=== PATIENT | male | born 1970 | race Caucasian/White ===

== ENCOUNTER 2017-11-13 12:57 | Inpatient (IN) | payer OTHER ==
[2017-11-13] MEDS ORDERED: MEPERIDINE 25 MG/ML SYR IVP PRN (13:15)
[2017-11-13] MEDS ORDERED: HEPARIN 10,000 UNIT/10 ML MDV (1,000 UNIT/ML) IVP PRN (13:15)
[2017-11-13] MEDS ORDERED: ALTEPLASE 2 MG VIAL IVP PRN (13:15)
[2017-11-13] MEDS ORDERED: FLUMAZENIL 0.5 MG/5 ML MDV IVP PRN (13:15)
[2017-11-13] MEDS ORDERED: GLUCAGON HCL 1 MG VIAL IVP PRN (13:15)
[2017-11-13] MEDS ORDERED: PROTAMINE SULFATE 50 MG/5 ML VIAL IVP PRN (13:15)
[2017-11-13] MEDS ORDERED: fentaNYL 100 MCG/2 ML INJ IVP PRN (13:15)
[2017-11-13] MEDS ORDERED: NALOXONE HCL 0.4 MG/ML INJ IVP PRN ×2 (13:15→18:49)
[2017-11-13] MEDS ORDERED: MIDAZOLAM 2 MG/2 ML VIAL IVP PRN (13:15)
[2017-11-13 13:36] LABS: PLATELET COUNT 300 10^3/uL (150-400)
[2017-11-13 13:44] LABS: PROTIME(PATIENT) 13.4 SEC (12.0-15.0)
[2017-11-13] MEDS ORDERED: HEPARIN/DEXTROSE 25,000 UNIT/500 ML BAG ONE (13:48)
--- NOTE | 2017-11-13 13:51 | PDGENHP ---
History & Physical Chief Complaint: RLE CLAUDICATION History of Present Illness: SYMPTOMS STARTED IN MAY; US ARTERIAL DONE 2017 REPOREDLY NEGATIVE. SYMPTOMS HAVE GOTTEN MUCH WORSE SINCE AUGUST Pertinent Past, Social, Family History: FORMER SMOKER. S/P AICD PLACEMENT FOR AFIB. BACK SURGERIES, NM STENT X 1 IN 2009. 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 DOPLERABLE RT POP < LT POP. DOPPLERABLE LT POP IS STRONGER THAN RT. Cardiorespiratory Assessment: RRR, CTA
--- NOTE | 2017-11-13 13:59 | PDPROPOC ---
Sedation Plan of Care Sedation Plan of Care: vital signs stable, mental status noted, patient educated of risks, benefits, alternatives, patient can tolerate sedation ASA Classification: ASA 2 Planned drugs: fentanyl, midazolam Mallampati Score: Class 1 Mallampati Reference Image: Patient passed 3-3-2 rule?: Yes
[2017-11-13] MEDS: NS 1,000 ML IV SCH ×2 (14:28→19:18)
[2017-11-13] MEDS ORDERED: IOPAMIDOL (ISOVUE-300) 100 ML BTL ONE (16:54)
[2017-11-13] MEDS ORDERED: MIDAZOLAM 2 MG/2 ML VIAL ONE (17:25)
[2017-11-13] MEDS ORDERED: fentaNYL 100 MCG/2 ML INJ ONE (17:25)
[2017-11-13] MEDS ORDERED: HYDROmorphONE/DILAUDID 2 MG/ML INJ ONE (17:56)
[2017-11-13] MEDS ORDERED: ALTEPLASE 5 MG in NS 100 ML IV ONE (18:00)
--- NOTE | 2017-11-13 18:45 | PDRADPN ---
Radiology Procedure Note Date of Procedure: 11/13/17 Radiologist: Bianka Byrd Anesthesia: IV Sedation Pre-op Diagnosis: RT CLAUDICATION Post-op Diagnosis: SAME Indication: WORSENING SYMPTOMS Procedure: BILATERAL RUNOFF, TPA LYSIS RT Finding(s): COMPLETE OCCLUSION OF DISTAL SFA THROUGH POP AND TP TRUNK. PARTIAL RUNOFF TO FOOT VIA PT. Inf/Abcess present in the surg proc area at time of surgery?: No Complications: NONE
[2017-11-13] MEDS ORDERED: PROMETHAZINE HCL 25 MG/ML INJ IVP PRN (18:46)
[2017-11-13] MEDS ORDERED: ONDANSETRON 4 MG/2 ML VIAL IVP PRN (18:46)
[2017-11-13] MEDS ORDERED: HEPARIN/DEXTROSE 500 ML IV SCH (19:00)
--- NOTE | 2017-11-13 19:48 | PDMN ---
Medical Necessity Medical necessity: C/M review: patient meets INPT criteria under [facility] S-1310 Percutaneous revascularization, lower extremity, Inpatient: Emergent or Urgent procedures for patients with comorbidities, have need for post thrombolysis monitoring or whose presenting clinical situation requires extended monitoring or treatment: Right lower extremity claudication with acutely worsening symptoms - symptoms much worse than August 2017, pre-procedure palpable and symmetric CF and FIRE LOOKOUT pulses, dopplerable right popliteal < left popliteal, dopplerable left popliteal is stronger than right requiring 11/13/2017 bilateral runoff, tPA lysis of right lower extremity, findings: complete occlusion of distal superficial femoral artery through popliteal and tibioperoneal trunk, partial runoff to foot via PT requiring ongoing IV tPA infusion and IV Heparin infusion, close monitoring , cardiac monitoring, pulse oximetry in ICU, comorbid history symptoms started 05/2017, US arterial done 08/2017 - reportedly negative, patient is former smoker, S/P AICD placement for atrial fibrillation, back surgeries, AR stent x 1 in 201. MD anticipates > 2 MN LOS for ongoing med nec for eval and TX of above.
[2017-11-13] MEDS: HYDROmorphONE/DILAUDID 6 MG/30 ML PCA IV PRN (19:49)
[2017-11-13] MEDS: LORazepam 1 MG TAB PO PRN (19:49)
[2017-11-13] MEDS: DEXMEDETOMIDINE HCL 400 MCG in NS 100 ML IV SCH (20:46)
[2017-11-13 21:08] LABS: PROTIME(PATIENT) 14.3 SEC (12.0-15.0)
[2017-11-13 21:09] LABS: INR 1.09 (0.83-1.16)
--- NOTE | 2017-11-13 21:25 | GHP ---
[f rep st] PREOP HISTORY AND PHYSICAL DATE OF ADMISSION: 11/13/2017 REASON FOR ADMISSION: Right femoral artery occlusion. HISTORY OF PRESENT ILLNESS: 47-year-old male with a 5-month history of progressive right leg pain. Patient has been running approximately 2 miles without difficulty before symptoms started. Patient does have a significant history for a ventricular arrhythmia; coronary artery disease, status post PTCA in 2009, and AICD placement in 2010. He had previously been maintained on Coumadin and switched to Xarelto recently. His right leg pain has progressed to the point of rest pain symptoms requiring him to dangle his leg over the bed at nighttime. He denies left leg symptoms. He does report occasional right- sided arm weakness, numbness, tingling, with occasional decreased chili maker strength. He describes his last echocardiogram being in July of 2017. He thinks that his ejection fraction was approximately 26%. The patient is currently only able to walk approximately 5 minutes before stopping. The patient is a former smoker, quit 2 months ago. 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 He currently denies chest pains, or shortness of breath, or abdominal complaints. Imaging studies disclose a distal SFA occlusion with minimal runoff. He is admitted at this time for catheter-directed thrombolytic therapy. PAST MEDICAL HISTORY: 1. Coronary artery disease. 2. Ventricular arrhythmia and possible left ventricular thrombus. PAST SURGICAL HISTORY: 1. L5-S1 laminectomy and subsequent fusion. 2. AICD placement. 3. PTCA. MEDICATIONS: 1. Pepcid. 2. Metoprolol. 3. Atorvastatin. 4. Xarelto. ALLERGIES: No known drug allergies. 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 He is . He is a former smoker as of 3 months ago. Occasional alcohol. PHYSICAL EXAMINATION: HEENT: Anicteric. LYMPH: No cervical or supraclavicular lymphadenopathy. HEART: Regular. LUNGS: Clear. ABDOMEN: Soft. No pulsatile masses. No bruits. 2+ radial, brachial, carotid, and femoral pulses bilaterally. 2+ left popliteal, dorsalis pedis, and posterior tibial pulses; absent right popliteal, dorsalis pedal, and posterior tibial pulses. IMPRESSION: Acute on chronic distal right superficial femoral artery, popliteal , and tibioperoneal level thrombus, query possible cardiac embolus given his history of a prior ventricular thrombus and recent switch in anticoagulants. Will proceed with catheter directed lysis of his right distal SFA and TP trunk occlusion. ECHO and cards consult to follow as well. /[id number]/MODL MTDD
[2017-11-14] MEDS: DEXMEDETOMIDINE HCL 400 MCG in NS 100 ML IV SCH ×2 (02:11→07:56)
[2017-11-14 06:31] LABS: PLATELET COUNT 210 10^3/uL (150-400)
[2017-11-14] MEDS: ALTEPLASE 5 MG in NS 100 ML IV SCH ×2 (07:56→15:58)
[2017-11-14] MEDS ORDERED: LIDOCAINE 1% 300 MG/30 ML SDV ONE (10:33)
[2017-11-14] MEDS ORDERED: IOPAMIDOL (ISOVUE-300) 100 ML BTL ONE (10:33)
[2017-11-14] MEDS ORDERED: HYDROmorphONE/DILAUDID 2 MG/ML INJ ONE (13:09)
--- NOTE | 2017-11-14 13:41 | ECHO ---
[email or web address] [address] Main: [phone] Fax: Transthoracic Echocardiogram Name: JEANNE DANIEL MR#: [id number] Study Date: 11/14/2017 Study Time: 10:26 AM Date of : 1970 Age: 47 year(s) Height: 172.7 cm (68 in.) Weight: 72.58 kg (160 lb.) BSA: 1.86 m2 Gender: Male Examination: Echo Indication: R/O clot/prior WI/pacer Image Quality: Contrast: Requested by: Bianka Byrd BP: 102 mmHg/74 mmHg Heart Rate: Rhythm: Indication: R/O clot/prior WI/pacer Procedure Staff Game Designer: Orly Nice RUST Reading Physician: Lamin Aguilar MD Requesting Provider: Conclusions: Normal size left ventricle. Severely reduced systolic LV function. The ejection fraction is estimated to be 30-35 %. LV apical thrombus measuring approximately 1.3 x 2.4. Entire LV apical region is akinetic.. Normal RV function. The left atrium is normal in size. The right atrium is normal in size. Unable to assess accurate regurgitation jets due to machine interference in pt's room.. Measurements: Chambers Valvular Assessment AV/MV Valvular Assessment TV/PV Normal Normal Normal Name Value Range Name Value Range Name Value Range Ao Gris (MM): 3.4 cm (2.2 cm-3.7 AV meanP mmHg ( - ) cm) MV E Vmax: 0.37 m/s ( - ) IVSd (2D): 0.6 cm (0.6 cm-1.1 MV A Vmax: 0.54 m/s ( - ) cm) MV E/A: 0.69 ( - ) LVDd (2D): 5.0 cm (4.2 cm-5.9 cm) LVPWd (2D): 0.7 cm (0.6 cm-1 cm) EF Range: 30-35 % Continued Measurements: Chambers Valvular Assessment AV/MV Name Value Name Value LADs: 3.5 cm MV E' Septal: 0.05 m/s LADs Lon.8 cm MV E/E' Septal: 7.20 Patient: JEANNE DANIEL Study Date: 11/14/2017 Page 1 of 2 10:26 AM LA Area: 14.5 cm2 MV E/E' Lateral: 6.70 TAPSE: 2.5 cm Findings: Left Ventricle: Normal size left ventricle. Severely reduced systolic LV function. The ejection fraction is estimated to be 30-35 %. LV apical thrombus measuring approximately 1.3 x 2.4. Entire LV apical region is akinetic.. Right Ventricle: Normal size right ventricle. Normal RV function. There is a pacemaker lead noted in the right ventricle. Left Atrium: The left atrium is normal in size. Right Atrium: The right atrium is normal in size. Mitral Valve: The mitral valve is normal in appearance and function. Aortic Valve: The aortic valve is normal in appearance and function. Tricuspid Valve: The tricuspid valve is normal in appearance and function. Pulmonic Valve: Pulmonary valve not well visualized. Aorta: The aorta is normal. Pericardium: No pericardial effusion. Exam Comments: Unable to assess accurate regurgitation jets due to machine interference in pt's room.. (No Signature Object) Patient: JEANNE DANIEL Study Date: 11/14/2017 Page 2 of 2 10:26 AM [id number]
[2017-11-14] MEDS ORDERED: CEFAZOLIN 1 GM/DEXTROSE/50 ML BAG IV ONE (13:49)
[2017-11-14] MEDS: NS 1,000 ML IV SCH (15:59)
--- NOTE | 2017-11-14 17:08 | GHP ---
[f rep st] HISTORY AND PHYSICAL DATE OF ADMISSION: 11/13/2017 REFERRING PHYSICIAN: Bianka Byrd MD REASON FOR REFERRAL: Evaluation and management of leg pain and a history of smoking and cardiomyopat hy. HISTORY: The patient is a 47-year-old male with a prior history of coronary artery disease and ische david cardiomyopathy along with a ventricular arrhythmia and AICD placement. He has been on Coumadin a nd was recently switched to Xarelto. However, he reports that he has sometimes been noncompliant with anticoagulation for up to a month at a time. He states that about over the last 5 months he has had progressive right leg pain. He was able to run a couple miles without difficulty before the symptom s started. He had an evaluation at [facility] 2 months ago, which apparently included an ultraso und of the leg that did not show any obstruction despite the presence of symptoms. However, because these symptoms were getting worse, and were actually causing difficulty at night with rest pain, he p resented for further evaluation. He was found to have a distal SFA occlusion with minimal runoff, an d was admitted for a catheter directed thrombolysis. This was started yesterday. Today there was so me minimal improvement. An attempt at angioplasty was made, but this did not result in any significa nt improvement. The plan is to continue tPA infusion until tomorrow. PAST MEDICAL HISTORY: Coronary artery disease, with ischemic cardiomyopathy. He thinks his last eje ction fraction was about 26%. He has had apparently had an LV thrombus. MEDICATIONS: At time of admission include Pepcid, metoprolol, atorvastatin, Xarelto. ALLERGIES: None. 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 He drinks alcohol occasionally. FAMILY HISTORY: Unremarkable. REVIEW OF SYSTEMS: A 10-point review of systems adds nothing to the history of present illness. PHYSICAL EXAMINATION: GENERAL: The patient is awake, alert, in no acute distress. VITAL SIGNS: Bl ood pressure is 123/78 with a heart rate of 83. He is afebrile. Oxygen saturations are 97% on 2 L. HEENT: Normocephalic and atraumatic. No icterus. NECK: No adenopathy. Trachea is midline. CHES T: Clear to auscultation. CARDIAC: Regular rate and rhythm without murmur. ABDOMEN: Soft, nonten re. Bowel sounds are present. EXTREMITIES: No clubbing. He has mild cyanosis of the right lower extremity, which was somewhat cooler than his left lower extremity. He has no palpable pulses. Ther e are no necrotic changes. He has hyperesthesia. NEURO: The patient is awake, alert, and in no acu te distress. He has no gross motor or sensory deficits, but does have some hyperesthesias in the rig ht lower extremity. LABORATORY: A hemoglobin is 9.8, white blood count is 15.7, a platelet count is 210. Creatinine is 1.1. An echocardiogram shows an ejection fraction of 30% to 35% with an LV thrombus. ASSESSMENT: 1. Right lower extremity arterial thrombosis. This has been partially improved with tPA, but signif icant obstruction persist with poor perfusion distally. The patient has been having significant doctor naturopathic stephanie pain and this continues acutely. He was having continuing pain with narcotics alone, but this is improved with Precedex. 2. History of tobacco abuse. The patient has a history of smoking, but denies symptoms of chronic b ronchitis. He has some dyspnea, but that could be due to his cardiomyopathy as well. 3. Ischemic cardiomyopathy with a reduced ejection fraction. 4. Left ventricular thrombus. This is likely the cause of the patient's right lower extremity arter ial thrombosis. RECOMMENDATIONS: 1. Continue tPA as per Dr. Byrd. The plan is to redo an angiogram tomorrow and remove the catheter. After thrombolysis attempts are completed, resume anticoagulation. 2. Continue Precedex with p.r.n. morphine for pain. /[id number]/MODL
--- NOTE | 2017-11-14 17:33 | GCON ---
[f rep st] CONSULTATION CARDIOLOGY CONSULTATION DATE OF CONSULTATION: 11/14/2017 INDICATION FOR CONSULTATION: History of ischemic cardiomyopathy and known LV apical thrombus, with evidence of distal SFA occlusion with minimal runoff secondary to thrombosis. REFERRING PHYSICIAN: Dr. Nahid Wang HISTORY OF PRESENT ILLNESS: Mr. Betancourt is a pleasant 47-year-old gentleman with a known history of coronary artery disease, who had an [id number]-hi-[id number] ventricular tachycardia cardiac arrest in 2009 while living in [place], in the setting of an acute anterior wall myocardial infarction. He underwent percutaneous coronary intervention. Echocardiogram post myocardial infarction demonstrated reduced ejection fraction. He was discharged home from the hospital on aspirin, Plavix, and Coumadin. Postoperative echo 1 month later demonstrated LV apical thrombus. For several years, he remained on aspirin and Coumadin without difficulty. He states he had been compliant with Coumadin and regular INR checks. He states his INR has generally been when well controlled and always within the therapeutic range. He states he was in his usual state of health until June of 2015. At that point, he was doing trail runs of approximately 2 miles per day. He noticed on a trail run in mid May 2016 that he had acute onset of right calf pain that prevented him from running. He tried to run the next several days after this initial onset of pain, but could not run more than 3/4 of a mile due to intense right leg pain. He states he rested, took time off from work, and the symptoms persisted, but ultimately resolved spontaneously in mid June 2016. He denies missing any doses of Coumadin prior to the onset of pain in his right leg. With the pain resolved in June of 2016, he ultimately returned to running and back to his baseline level of activity. He states again he was in his usual state of health until May 2017, when he began to have return of the same right leg pain that he had been experiencing the year earlier. The pain continued to intensify. He states he initially had pain in both legs; however, the right pain was always greater than the left. He states the left leg pain ultimately resolved. In mid June 2017, he describes an episode of acute onset of blurry vision, inability to read his GPS map in his car while driving, and he states he was confused and got lost driving in his own neighborhood. 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 Evaluation at [facility] demonstrated negative CT of the head per his report. He reports his troponin at that time was 0.315. He was recommended to stay in the hospital for observation, but he left against medical advice and ultimately saw his primary care physician, Dr. Real, the following morning. He was subsequently referred to a death clearance coordinator at [facility], Dr. Mcnulty. He was seen by Dr. Mcnulty approximately a month later, who had recommended a chest x-ray as well as an exercise nuclear stress test. He had difficulty walking during the exercise portion of the stress test. He requested that an ankle-brachial index be performed. This was found to be abnormal, and Dr. Mcnulty had recommended ultrasound of the left lower extremity. Per Mr. Betancourt report, the ultrasound was unremarkable, and he was recommended to see a vascular surgeon. Mr. Betancourt ultimately connected with Dr. Nahid Wang, who ordered a repeat ultrasound demonstrating distal SFA occlusion with minimal runoff in his right leg. He was seen in consultation by Dr. Wang, prompting his admission to [facility], with evidence of acute on chronic distal right superficial femoral artery, popliteal, and tibioperoneal level thrombus. He was seen in consultation as well by Dr. Bianka Byrd for tPA lysis and popliteal artery angioplasty. Most recent note from Dr. Byrd demonstrates 40% to 50% clot dissolution and moderate residual segments of stenosis and irregularities throughout the SFA and popliteal consistent with chronic clot. Attempts at angioplasty at the popliteal trifurcation were unsuccessful and plan for re-evaluation tomorrow. Currently, at the time of my exam, Mr. Betancourt is resting comfortably. His right leg is exquisitely tender to palpation; however, his foot is warm, and I do appreciate a weak posterior tibial pulse. Mr. Betancourt states that his leg is typically cold and dusky in appearance. He does note that his leg feels warmer and notes its color has improved since his admission. Echocardiogram performed today demonstrates LVEF of 30% to 35%, with apical akinesis and evidence of a large 1.5 x approximately 2.5 cm LV apical thrombus. Mr. Betancourt states he did undergo an echocardiogram at [facility] in July 2017. He denies any mention of LV apical thrombus on that report. He denies any complaints of chest pain, chest pressure, shortness of breath, or dyspnea. No complaints of PND or orthopnea. He denies any palpitations, dizziness, lightheadedness, or syncope. He also underwent a primary prevention ICD implantation 1 year post myocardial infarction in the setting of reduced left ventricular function. He states his ICD has never shocked him. PAST MEDICAL HISTORY: 1. History of coronary artery disease, with acute myocardial infarction in 2009 in the setting of [id number] cardiac arrest requiring CPR. 2. Ischemic cardiomyopathy with LVEF of 30% to 35%. 3. Primary prevention ICD implantation in [address] [facility] device. PAST SURGICAL HISTORY: Includes L5-S1 laminectomy and spinal fusion. MEDICATIONS ON ADMISSION: Include: 1. Xarelto 20 mg daily. 2. Aspirin 325 mg daily. 3. Atorvastatin 20 mg daily. 4. Metoprolol tartrate 25 mg p.o. b.i.d. 5. Pepcid 20 mg daily. ALLERGIES: No known allergies to medications. SOCIAL HISTORY: He has been a smoker up until his admission to [facility]. 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 He is . FAMILY HISTORY: No family history of premature coronary artery disease or coagulopathy. PHYSICAL EXAM: VITAL SIGNS: Blood pressure of 123/78, heart rate of 83 in sinus rhythm, respiratory rate of 16, oxygen saturation 97% on 2 L nasal cannula. GENERAL: He is awake, alert, oriented, appropriate, in no apparent distress. NECK: There is no evidence of JVP or carotid bruits. LUNGS: Clear to auscultation bilaterally anteriorly. CARDIAC: S1, S2. Regular rate and rhythm. No murmurs, rubs, or gallops. ICD pocket is nontender. No evidence of infection. ABDOMEN: Soft, nontender, nondistended. No pulsatile mass or abdominal bruit. EXTREMITIES: Right leg is exquisitely tender to palpation. It is warm. No evidence of cyanosis. Weak posterior tibial pulse is appreciated. Left lower extremity has no evidence of edema. Temperature is warm to touch. Nontender to palpation and distal pulses are intact. DATA: White blood cell count 9.83, hemoglobin of 15.7, hematocrit of 44.9, platelet count of 210. Creatinine 1.1. Echocardiogram done today demonstrates LVEF of 30% to 35%, with apical akinesis and a 1.5 x 2.5 cm LV apical thrombus. IMPRESSION: 1. Acute on chronic thrombosis of the distal right superficial femoral artery, popliteal artery, and tibioperoneal trunk. 2. Left ventricular apical thrombus. 3. Ischemic cardiomyopathy, with left ventricular ejection fraction of 30% to 35% with apical hypokinesis. 4. Coronary artery disease. 5. Smoking history. 6. Neurologic event in Jun 2017, consistent with TIA 7. Hx of AICD implantation in 2010. No hx of ICD shock. ([employer] [facility]) SUMMARY: Mr. Betancourt is a pleasant 47-year-old gentleman with an interesting history over the last year and a half, with right lower extremity pain consistent with claudication pain, initially beginning in May of 2016 with symptoms persisting for approximately 4-6 weeks and resolving spontaneously. He remained compliant with Coumadin through the course of his leg pain. He states his INRs have always been therapeutic. His symptoms returned again in May of 2017 and have persisted and worsened over the last several months. He states he had been on Coumadin regularly, with regular INRs up until mid August 2017, at which time he was changed to Xarelto 20 mg daily at the request of his death clearance coordinator at [facility], Dr. Mcnulty. He states he has been compliant with Xarelto. His symptoms of right leg pain intensified prompting an GAUTAM to be performed, which ultimately led to an ultrasound which was unremarkable; however, with progression of symptoms, a repeat ultrasound was performed demonstrating clot. Also in June of 2017, he had an episode of loss of vision, confusion, and got lost driving in his own neighborhood, which is consistent with TIA. His workup at [facility] was unremarkable. Echo today demonstrates LV apical thrombus. PLAN: -Recommend anticoagulation with full dose Heparin -Recommend he remain on aspirin -Recommend surgical consultation with Dr. Fisher of CT Surgery for consideration of LV thrombus resection with a 1.5 x 2.5 mobile LV apical thrombus and recurrent right lower extremity embolic events coupled with an episode in June 2017 suggestive of TIA in the setting of therapeutic INR and compliance with coumadin/Xarelto and aspirin 325 mg daily therapy. -We will continue to follow along with his care. NOTE: Cased reviewed over the phone with Dr. Fisher. Images sent via Iphone with pt's permission for his review. He agrees that surgical thombectomy is appropriate with plan for surgery on Thursday, November 17, 2017. He will need preoperative LHC on Thursday. I have also discussed in detail with Drs. Wang and Freddy with plan to discontinue TPa and remain on full dose Heparinization. 1.5 hours spent coordinating care. /[id number]/MODL MTDD
--- NOTE | 2017-11-14 17:42 | SOAPPROG ---
SOAP Progress Note Assessment/Plan: Assessment:patient seen today am prior to return to IR. was able to feel foot at that time better than prior to admission despite calf pain. no abd c.o. no cp or sob. no other new concerns. avss. abd soft. left groin puncture site flat. right foot cool, pink. calf tender. continue lytic therapy today. case reviewed with dr. wendi lew. further plans to follow. Plan: 11/14/17 17:35 Objective: Vital Signs Temp Pulse Resp BP Pulse Ox 36.7 C 72 18 133/88 H 98 11/14/17 16:00 11/14/17 17:00 11/14/17 17:00 11/14/17 17:00 11/14/17 17:00 Laboratory Results 11/14/17 06:10 11/13/17 13:25 11/13/17 11/14/17 11/15/17 05:59 05:59 05:59 Intake Total 1554 Output Total 0 1050 Balance 1554 -1050 PT 14.3 SEC (12.0-15.0) 11/13/17 19:30 INR 1.09 (0.83-1.16) 11/13/17 19:30 ICD10 Worksheet Patient Problems: Problems Problem Status Onset Arterial embolism of right leg Acute - ICD10 Problem Qualifiers (1) Arterial embolism of right leg
[2017-11-14] MEDS: HYDROmorphONE/DILAUDID 6 MG/30 ML PCA IV PRN (17:47)
[2017-11-14] MEDS ORDERED: HEPARIN 10,000 UNIT/10 ML MDV (1,000 UNIT/ML) IVP ONE (18:30)
[2017-11-14] MEDS: HEPARIN 10,000 UNIT/10 ML MDV (1,000 UNIT/ML) IVP PRN (19:36)
[2017-11-15] MEDS: DEXMEDETOMIDINE HCL 400 MCG in NS 100 ML IV SCH (00:20)
[2017-11-15] MEDS: HEPARIN 10,000 UNIT/10 ML MDV (1,000 UNIT/ML) IVP PRN ×2 (02:27→13:52)
[2017-11-15] MEDS: LORazepam 1 MG TAB PO PRN ×2 (03:08→22:10)
[2017-11-15] MEDS: NS 1,000 ML IV SCH (03:10)
[2017-11-15] MEDS: HEPARIN/DEXTROSE 500 ML IV SCH (06:16)
[2017-11-15] MEDS: HYDROmorphONE/DILAUDID 6 MG/30 ML PCA IV PRN ×3 (06:30→22:11)
--- NOTE | 2017-11-15 09:21 | ASMTCMCOM ---
CM Note CM Note Notes: Patient has a signficant history of CAD, ischemic cardiomyopathy, and an actue NH in 2009. He has been to IR twice this admission for angioplasty, and will return to IR today to check the status of clot lysis. He will go to the ear mold laboratory technician tomorrow 11/16, and per RN, has plans for open heart surgery Friday 11/17. 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 Case Management will follow for discharge planning. Date Signed: 11/15/2017 09:20 AM Electronically Signed By:Irasema Caro RN
--- NOTE | 2017-11-15 09:48 | SOAPPROG ---
CARY Progress Note Assessment/Plan: Assessment: Care plan reviewed with Dr. Aguilar and Dr. Byrd yesterday. (Unstable) ventricular thrombus noted on ECHO. Further discussion with patient disclosed a possible TIA episode earlier in the year - this was precipitated by a FARFAN followed by getting lost while driving - he does not note any localizing extremity deficits with that episode as supported by his significant other. he describes intermittent right hand numbness and clumsiness - this may be positional - he has not had any amaurosis symptoms. He has been on chronic anticoagulants and has experienced a significant right leg thromboembolus despite appropriate treatment. These findings were reviewed with Dr. Fisher regarding the role for surgical ventricular thrombectomy - given the possible unstable nature of his clot, it was recommended to discontinue TPA which was done with possible plans for cardiac intervention this week. He notes persistent calf pain. His foot is slightly less painful than yesterday. He denies new abdominal or back complaints. AVSS. comfortable. abd soft. left groin flat. 2+ right femoral and popliteal pulse. notable right calf tenderness - compartments soft. foot pink and cool. Plan to proceed with completion run off today. will maintain patient on full heparin anticoagulation. patient aware that future leg intervention may be necessary - he will hopefully at least be out of rest pain. his calf tenderness is likely secondary to microemboli from his lysis - this should improve over time. dr. fisher to consult when available. appreciate cards input. for left heart cath preop. Plan: 11/14/17 17:35 11/15/17 09:37 Objective: Vital Signs Temp Pulse Resp BP Pulse Ox 36.7 C 74 16 103/78 99 11/15/17 04:00 11/15/17 07:00 11/15/17 07:00 11/15/17 07:00 11/15/17 07:00 Laboratory Results 11/14/17 06:10 11/13/17 13:25 11/14/17 11/15/17 11/16/17 05:59 05:59 05:59 Intake Total 1554 2737 Output Total 0 3250 Balance 1554 -513 PT 14.3 SEC (12.0-15.0) 11/13/17 19:30 INR 1.09 (0.83-1.16) 11/13/17 19:30 ICD10 Worksheet Patient Problems: Problems Problem Status Onset Arterial embolism of right leg Acute - ICD10 Problem Qualifiers (1) Arterial embolism of right leg
[2017-11-15] MEDS ORDERED: HYDROmorphONE/DILAUDID 2 MG/ML INJ ONE (11:23)
--- NOTE | 2017-11-15 11:29 | PDCARPN ---
Cardiology Progress Note Assessment/Plan: Assessment: -LV apical thrombus -embolization Right SFA and distal run off Plan: -Continue Heparin gtt -C tomorrow. Left Femoral Sheath in place. -CT surgery consult today. Plan for surgical resection of LV apical thrombus with Dr. Fisher 11/15/17 11:26 Subjective: Elliott is doing well this morning. No events overnight. Remains hemodynamically stable. Right leg is warm to the touch. Weak posterior tibial pulses in the right leg is palpable. Discussed in detail again with Nathan and his friend from work who is visiting plan for surgical resection of LV apical thrombus in the setting of multiple embolic events as described in my consultation note. In further discussion, it sounds like he had a left heart catheterization in July [address] Mcnulty at [facility]. I do not have those results available to me at this time. Left femoral artery sheath remains in place from peripheral intervention. Will keep femoral sheath in place to use for left heart catheterization tomorrow if images from his left heart catheterization July cannot be obtained. Surgical consult today with plan for LV apical thrombus resection on ThursdayNovember [address] York. Reviewed/Discussed With: multidisciplinary team Time Spent with Patient: greater than 25 minutes Time Spent with Patient: Greater than 25 minutes spent on this patients care, greater than 50% of time spent counseling, educating, and coordinating care regarding the above mentioned plan. Objective: Vital Signs (8 Hrs) Temp Pulse Resp BP Pulse Ox 11/15/17 10:00 89 16 119/66 98 11/15/17 09:00 97 13 138/79 H 100 11/15/17 08:00 77 16 116/81 H 98 11/15/17 07:00 74 16 103/78 99 11/15/17 06:00 78 14 102/64 100 11/15/17 05:00 74 11 L 102/64 100 11/15/17 04:00 36.7 C 65 12 97/60 L 98 Intake/Output (24 Hrs) 11/14/17 11/15/17 11/16/17 05:59 05:59 05:59 Intake Total 1554 2737 Output Total 0 3250 550 Balance 1554 -513 -550 Intake: Oral (ml) 200 800 IV Intake (ml) 538 IV Infused (ml) 1354 1399 Alteplase 5 mg In Ns 100 226 74 ml @ Per Protocol IV CONT [facility] Rx#:[id number] Dexmedetomidine HCl 400 131 129 mcg In Ns 100 ml @ Per Protocol IV CONT [facility] Rx#: [id number] Heparin/Dextrose 500 ml @ 67 63 As Directed IV CONT [facility] Rx#:[id number] Heparin/Dextrose 500 ml @ 260 As Directed IV CONT [facility] Rx#:[id number] Ns 1,000 ml @ TKO IV CONT 930 873 [facility] Rx#:[id number] Output: Urine (ml) 0 3250 550 Urinal 0 3250 550 Other: Weight 71.66 kg Number of Voids Urinal 1 1 Result Diagrams: 11/14/17 06:10 11/13/17 13:25 - Physical Exam Cardiovascular: regular rate and rhythm, no murmurs, no rubs, no gallops Neurologic: AAOx3, CN II-XII grossly intact Psychiatric: cooperative, interactive, following commands ICD10 Worksheet Patient Problems: Problems Problem Status Onset Arterial embolism of right leg Acute
--- NOTE | 2017-11-15 12:13 | PDRADPN ---
Radiology Procedure Note Date of Procedure: 11/15/17 Radiologist: Bianka Byrd Pre-op Diagnosis: RLE RESTING PAIN Post-op Diagnosis: SAME Indication: OCCLUDED SFA/POP; TPA LYSIS FOLLOW UP Procedure: RLE RUNOFF ANGIOGRAM Finding(s): TPA/HEPARIN COMBO OPENED UP MUCH MORE COLLATERALS. PATIENT NOW HAS TWO VESSEL RUNOFF (AT AND PT) TO FOOT, CONSITUTING PLANTAR ARCH. NO DIRECT ANTEGRADE FLOW VIA DISTAL SFA/POP, WHERE CLOT IS OLD. HE IS BETTER OFF THAN WHERE HE STARTED. RESTING PAIN SHOULD BE RESOLVED. WALKING PROGRAM FOR CLAUDICATION WHEN ABLE. Inf/Abcess present in the surg proc area at time of surgery?: No Complications: NONE
--- NOTE | 2017-11-15 13:00 | PDINTPN ---
Bridge/Structure Inspection Team Leader Progress Note Assessment/Plan: Assessment: RLE arterial thrombosis: Acute & chronic: Partial response to tPA/heparin. LV clot is likely source. Plan is to continue heparin, no more tPA LV thrombus: Large and not mural, not firmly attached to ventricular wall. Likely has caused the RLE occlusion as well as other symptoms including TIAs and RUE symptoms. Ischemic cardiomyopathy: EF 30-35% with RWMAs History of tobacco abuse: Stopped a few months ago. No symptoms of COPD except for dyspnea, which is most likely due to his cardiomyopathy. Plan: Leave sheath in and continue heparin. Continue morphine and Precedex for pain control. Possible heart catheterization tomorrow if recent heart catheterization was not a left heart catheterization or cannot be obtained. Anticipate LV thrombectomy by Dr. Phillip Aponte 11/15/17 13:03 Subjective: Foot feels better, less rest pain. Objective: Vital Signs Temp Pulse Resp BP Pulse Ox 36.7 C 96 15 129/77 H 96 11/15/17 04:00 11/15/17 12:00 11/15/17 12:00 11/15/17 12:00 11/15/17 12:00 Laboratory Results 11/14/17 06:10 11/13/17 13:25 11/14/17 11/15/17 11/16/17 05:59 05:59 05:59 Intake Total 1554 2737 Output Total 0 3250 550 Balance 1554 -513 -550 PT 14.3 SEC (12.0-15.0) 11/13/17 19:30 INR 1.09 (0.83-1.16) 11/13/17 19:30 Physical Exam - Physical Exam General Appearance: alert, no apparent distress EENT: normal ENT inspection Neck: normal inspection Respiratory: lungs clear Cardiac/Chest: regular rate, rhythm, No edema Abdomen: normal bowel sounds, non-tender Skin: normal color, warm/dry Extremities: other (right foot warmer, less tender. ) Neuro/Psych: alert, normal mood/affect, motor weakness (RLE with increased movement) ICD10 Worksheet Patient Problems: Problems Problem Status Onset Arterial embolism of right leg Acute
--- NOTE | 2017-11-15 13:29 | PDGENHP ---
History and Physical - History of Present Illness This is a 47yo male with known coronary artery disease s/p VT arrest and AWMI s/ p multiple stent placement in 2009. During this admission, patient reports that an echo was performed which revealed an LV thrombus. He was subsequently discharged on ASA, Plavix and Coumadin. Patient later underwent AICD placement in 2010 for a low EF. Patient had been having waxing and waning symptoms of right leg pain over the past couple years. He was found to have a distal SFA occlusion. He was switched to Xarelto by his Damper Fitter in July of this year. History Information - Allergies/Home Medication List Allergies/Adverse Reactions: No Known Allergies Allergy (Unverified 11/12/17 17:37) Home Medications: Atorvastatin Calcium [Lipitor 40 mg (*)] 20 mg PO DAILY 11/13/17 [Last Taken ] Famotidine [Pepcid 20 MG (*)] 20 mg PO BID PRN 11/13/17 [Last Taken 11/11/17] Metoprolol Tartrate [Lopressor 25 mg (*)] 25 mg PO BID 11/13/17 [Last Taken ] Rivaroxaban [Xarelto] 20 mg PO DAILY 11/13/17 [Last Taken 11/11/17] traMADol [Ultram 50 mg (*)] 50 - 100 mg PO Q8H PRN 11/13/17 [Last Taken 11/11/17 ] - Social History Smoking Status: Former smoker Review of Systems Review of Systems: Physical Exam Physical Exam: Temp Pulse Resp BP Pulse Ox 36.7 C 96 15 129/77 H 96 11/15/17 04:00 11/15/17 12:00 11/15/17 12:00 11/15/17 12:00 11/15/17 12:00 O2 (L/minute) 2 Lab Data & Imaging Review 11/14/17 06:10 11/13/17 13:25 WBC 9.83 10^3/uL (3.80-9.50) H 11/14/17 06:10 RBC 4.66 10^6/uL (4.40-6.38) 11/14/17 06:10 Hgb 15.7 g/dL (13.7-17.5) 11/14/17 06:10 Hct 44.9 % (40.0-51.0) 11/14/17 06:10 MCV 96.4 fL (81.5-99.8) 11/14/17 06:10 MCH 33.7 pg (27.9-34.1) 11/14/17 06:10 MCHC 35.0 g/dL (32.4-36.7) 11/14/17 06:10 RDW 12.4 % (11.5-15.2) 11/14/17 06:10 Plt Count 210 10^3/uL (150-400) 11/14/17 06:10 MPV 8.5 fL (8.7-11.7) L 11/14/17 06:10 Neut % (Auto) 82.6 % (39.3-74.2) H 11/14/17 06:10 Lymph % (Auto) 8.5 % (15.0-45.0) L 11/14/17 06:10 [place] % (Auto) 8.2 % (4.5-13.0) 11/14/17 06:10 Eos % (Auto) 0.2 % (0.6-7.6) L 11/14/17 06:10 Baso % (Auto) 0.2 % (0.3-1.7) L 11/14/17 06:10 Nucleat RBC Rel Count 0.0 % (0.0-0.2) 11/14/17 06:10 Absolute Neuts (auto) 8.11 10^3/uL (1.70-6.50) H 11/14/17 06:10 Absolute Lymphs (auto) 0.84 10^3/uL (1.00-3.00) L 11/14/17 06:10 Absolute Monos (auto) 0.81 10^3/uL (0.30-0.80) H 11/14/17 06:10 Absolute Eos (auto) 0.02 10^3/uL (0.03-0.40) L 11/14/17 06:10 Absolute Basos (auto) 0.02 10^3/uL (0.02-0.10) 11/14/17 06:10 Absolute Nucleated RBC 0.00 10^3/uL (0-0.01) 11/14/17 06:10 Immature Gran % 0.3 % (0.0-1.1) 11/14/17 06:10 Immature Gran # 0.03 10^3/uL (0.00-0.10) 11/14/17 06:10 PT 14.3 SEC (12.0-15.0) 11/13/17 19:30 INR 1.09 (0.83-1.16) 11/13/17 19:30 APTT > 250.0 SEC (23.0-38.0) H* 11/14/17 13:30 Fibrinogen 247 mg/dL (214-456) 11/14/17 13:30 Heparin Anti-Xa, Unfract 0.11 IU/mL (0.32-0.67) L 11/15/17 12:33 Creatinine 1.1 mg/dL (0.7-1.3) 11/13/17 13:25 Estimated GFR > 60 11/13/17 13:25 Assessment & Plan Assessment: Arterial embolism of right leg (Acute)
--- NOTE | 2017-11-15 13:47 | SOAPPROG ---
CARY Progress Note Assessment/Plan: Assessment: This is a 47yo male with known CAD s/p multiple stent placement in 2009, as well as known LV thrombus seen on echo at that time, for which patient was placed on chronic anticoagulation. Patient also underwent AICD placement in 2010 for a low EF. Patient has sustained 2 TIA-like events since June of this year despite being on anticoagulation. He was admitted here for right leg pain and was found to have an acute on chronic distal R SFA, popliteal, and tibioperoneal thrombus for which he received tPA. An echo was performed which revealed an EF 30-35% and an LV apical thrombus measuring 1.3 x 2.4 cm. Patient was referred to CT Surgery for surgical evaluation of his LV thrombus. Plan: Dr. Fisher to evaluate patient. Patient will be placed on the OR schedule for Thursday for evacuation of LV thrombus and possible CABG. Objective: Vital Signs Temp Pulse Resp BP Pulse Ox 36.7 C 96 15 129/77 H 96 11/15/17 04:00 11/15/17 12:00 11/15/17 12:00 11/15/17 12:00 11/15/17 12:00 Laboratory Results 11/14/17 06:10 11/13/17 13:25 11/14/17 11/15/17 11/16/17 05:59 05:59 05:59 Intake Total 1554 2737 Output Total 0 3250 550 Balance 1554 -513 -550 PT 14.3 SEC (12.0-15.0) 11/13/17 19:30 INR 1.09 (0.83-1.16) 11/13/17 19:30 ICD10 Worksheet Patient Problems: Problems Problem Status Onset Arterial embolism of right leg Acute
[2017-11-16] MEDS: HEPARIN/DEXTROSE 500 ML IV SCH (03:36)
[2017-11-16] MEDS ORDERED: NS 500 ML IV ONE (08:30)
[2017-11-16] MEDS ORDERED: diphenhydrAMINE 25 MG CAP PO ONE (09:07)
[2017-11-16] MEDS ORDERED: ACETAMINOPHEN 325 MG TAB PO PRN (09:07)
[2017-11-16] MEDS ORDERED: TEMAZEPAM 15 MG CAP PO PRN (09:07)
[2017-11-16] MEDS ORDERED: FAMOTIDINE 20 MG TAB PO ONE (09:07)
[2017-11-16] MEDS ORDERED: NITROGLYCERIN 0.4 MG BTL SL PRN (09:07)
[2017-11-16] MEDS ORDERED: ASPIRIN EC 325 MG TAB PO ONE (09:07)
[2017-11-16] MEDS ORDERED: DIAZEPAM 5 MG TAB PO ONE (09:07)
[2017-11-16] MEDS ORDERED: NS 1,000 ML IV SCH (09:15)
[2017-11-16] MEDS ORDERED: LIDOCAINE 1% 300 MG/30 ML SDV ONE (09:40)
[2017-11-16] MEDS ORDERED: IOPAMIDOL (ISOVUE-370) 150 ML BTL IV ONE (09:41)
[2017-11-16] MEDS ORDERED: MIDAZOLAM 2 MG/2 ML VIAL ONE (09:41)
[2017-11-16] MEDS ORDERED: fentaNYL 100 MCG/2 ML INJ ONE (09:41)
--- NOTE | 2017-11-16 09:52 | PDPROPOC ---
Sedation Plan of Care Sedation Plan of Care: vital signs stable, mental status noted, patient educated of risks, benefits, alternatives, patient can tolerate sedation ASA Classification: ASA 3 Planned drugs: fentanyl, midazolam Mallampati Score: Class 1 Mallampati Reference Image: Patient passed 3-3-2 rule?: Yes
[2017-11-16 09:59] LABS: PROTIME(PATIENT) 14.9 SEC (12.0-15.0)
[2017-11-16 10:00] LABS: INR 1.15 (0.83-1.16)
--- NOTE | 2017-11-16 10:01 | PDCARPN ---
Cardiology Progress Note Chief Complaint: LV thrombus/CAD Assessment/Plan: Assessment: 47 y/o M wit H CAD/OOH VT cardiac arrest/AMI with PCI to LAD in 2009, ICM, LVSF of 35%, know LV thrombus since time of FL, [id number] distal RSFA, ICD 2010, popliteal, tibioperoneal trunk thrombus, s/p tPA, 2 TIA-like events in 07/16. Started to note R leg pain starting in May. Saw Dr. Mcnulty of [facility] cardiology, and he reports no etiology found. Eventually referred by PCP to Dr. Wang. Large amount of clot burden found. Admitted to [facility] for tPA thrombolysis with Dr. Byrd. #. LV thrombus: plan to go to OR with CTS for thrombus extraction #. CAD: [facility] today with widely patent LAD stent and no new obstructions holding Metoprolol due to some hypotension continue statin therapy #. LE thrombus: reviewed notes from Dr. Byrd 40-50% clot dissolution and moderate residual segments of stenosis and irregularities through SFA/popliteal c/w chronic clot repeat angiogram 11/15 shows collaterals are open w/ 2V runoff to foot; no direct antegrade flow via distal SFA/pop where clot is chronic #. ICM/SCHF: looks euvolemic LVSF 30-35% defer BB and Lisinopril as patient to go to OR tomorrow #. elevated liver enzymes: pt denies any heavy alcohol intake ordered hep panel Plan: OK to proceed to planned surgical extraction Await hep panel results 11/16/17 11:59 Subjective: Reports ongoing R leg pain. No cp or dyspnea. Objective: Vital Signs (8 Hrs) Temp Pulse Resp BP Pulse Ox 11/16/17 08:00 98.2 F 70 18 96/76 L 98 11/16/17 07:00 66 15 71/44 L 96 11/16/17 06:00 80 10 L 80/49 L 94 11/16/17 05:00 71 11/16/17 04:00 98.1 F 69 12 88/53 L 97 11/16/17 03:00 66 17 100/63 96 11/16/17 02:00 85 15 99/63 L 92 Intake/Output (24 Hrs) 11/15/17 11/16/17 11/17/17 05:59 05:59 05:59 Intake Total 2737 1791.2 Output Total 3250 2700 Balance -513 -908.8 Intake: Oral (ml) 800 800 IV Intake (ml) 538 IV Infused (ml) 1399 991.2 Alteplase 5 mg In Ns 100 74 ml @ Per Protocol IV CONT [facility] Rx#:[id number] Dexmedetomidine HCl 400 129 58.2 mcg In Ns 100 ml @ Per Protocol IV CONT [facility] Rx#: [id number] Heparin/Dextrose 500 ml @ 63 As Directed IV CONT [facility] Rx#:[id number] Heparin/Dextrose 500 ml @ 260 553 As Directed IV CONT [facility] Rx#:[id number] Ns 1,000 ml @ TKO IV CONT 873 380 [facility] Rx#:[id number] Output: Urine (ml) 3250 2700 Urinal 3250 2700 Other: Number of Voids Urinal 1 1 Number of Stools Urinal 0 Result Diagrams: 11/16/17 07:40 11/16/17 05:12 EK11/16/17 SR with ant-sept Qs; diffuse ST-T w abn Telemetry: reviewed. SR Echocardiogram: Reviewed. EF 30-35%; large LV thrombus - Physical Exam Constitutional: no apparent distress Eyes: anicteric sclera Ears, Nose, Mouth, Throat: moist mucous membranes Cardiovascular: regular rate and rhythm, no murmurs Peripheral Pulses: 0: dorsalis-pedis (R), dorsalis-pedis (L) Respiratory: clear to auscultate bilat Gastrointestinal: normoactive bowel sounds, no tenderness Neurologic: AAOx3 Psychiatric: cooperative, interactive ICD10 Worksheet Patient Problems: Problems Problem Status Onset Arterial embolism of right leg Acute Left ventricular thrombus without FL Acute
--- NOTE | 2017-11-16 10:44 | PDDXCAT ---
Diagnostic Cath Note - . Date: 11/16/17 Compounding Technician: Morgan Indication: other (Pre-op LV thrombus removal. Hx. LAD stent) - Procedure Access: left groin Procedure: left heart catheterization, coronary angiography - Materials Left Heart Cath size: 6F Left Heart Cath materials: JL4.0, JR4.0 - Findings-Left Heart Catheterization LM: Normal LAD: Mid LAD stent widely patent. Otherwise normal LCX: Normal RCA: Dominant: Normal Complications: None Estimated blood loss: <50ml Closure method: other (7 Portuguese sheath secured right femoral artery) Assessment: Widely patent site of prior stenting. No new obstructive coronary artery disease identified. Plan: LV thrombectomy tomorrow per CT surgery. Maintain left femoral artery sheath with patient on on interrupted heparin. Patient Problems: Problems Problem Status Onset Left ventricular thrombus without OK Acute Arterial embolism of right leg Acute
--- NOTE | 2017-11-16 11:05 | CPEKG ---
Heart Rate: 72 RR Interval: 833 P-R Interval: 152 QRSD Interval: 98 QT Interval: 388 QTC Interval: 425 P [place]: 84 QRS [place]: 56 T Wave [place]: 57 EKG Severity - ABNORMAL ECG - EKG Impression: SINUS RHYTHM EKG Impression: ANTERIOR INFARCT, AGE INDETERMINATE Electronically Signed By: Yogi Vann 16-Nov-2017 13:16:11
[2017-11-16] MEDS: HYDROmorphONE/DILAUDID 6 MG/30 ML PCA IV PRN ×2 (11:57→21:48)
[2017-11-16] MEDS ORDERED: FAMOTIDINE 20 MG TAB PO PRN (11:57)
[2017-11-16] MEDS ORDERED: traMADol 50 MG TAB PO PRN (11:57)
--- NOTE | 2017-11-16 12:08 | PDGENHP ---
History and Physical - Chief Complaint LV apical thrombus - History of Present Illness 47M admitted with c/o worsening right leg pain and found to have an acute on chronic occlusion of distal R SFA, popliteal, and tibioperoneal arteries. Pt is s/p TPA lysis with improvement in blood flow, however, he still c/o persistent RLE pain. Pt currently denies weakness, CP, SOB, abd pain, or LE edema. Pt with h/o AMI in 2009 with LAD stent placement. Pt received an AICD at the time as his LVEF was reduced at 35%. He was also diagnosed with an LV apical thrombus and has been chronically anticoagulated with Xarelto. TTE on this admission confirmed LV thrombus. Plan is for LV thrombectomy on 11/[address] Fisher as it is likely the soruce of emboli. LHC today showed a patent LAD stent without other significant CAD. On further questioning, pt admits to episodes of forgetfulness which may represent TIAs. He denies other medical problems or surgical history. He denies allergies, drug use, or ETOH abuse. History Information - Allergies/Home Medication List Allergies/Adverse Reactions: No Known Allergies Allergy (Unverified 11/12/17 17:37) Home Medications: Atorvastatin Calcium [Lipitor 40 mg (*)] 20 mg PO DAILY 11/13/17 [Last Taken ] Famotidine [Pepcid 20 MG (*)] 20 mg PO BID PRN 11/13/17 [Last Taken 11/11/17] Metoprolol Tartrate [Lopressor 25 mg (*)] 25 mg PO BID 11/13/17 [Last Taken ] Rivaroxaban [Xarelto] 20 mg PO DAILY 11/13/17 [Last Taken 11/11/17] traMADol [Ultram 50 mg (*)] 50 - 100 mg PO Q8H PRN 11/13/17 [Last Taken 11/11/17 ] I have personally reviewed and updated: medical history, social history, surgical history - Surgical History Reports: no pertinent surgical hx - Social History Smoking Status: Former smoker Alcohol Use: None Drug Use: None Review of Systems Review of Systems: ROS: 10pt was reviewed & negative except for what was stated in HPI & below Physical Exam Physical Exam: Temp Pulse Resp BP Pulse Ox 36.8 C 70 18 96/76 L 98 11/16/17 08:00 11/16/17 08:00 11/16/17 08:00 11/16/17 08:00 11/16/17 08:00 O2 (L/minute) 1 Constitutional: no apparent distress, appears nourished, not in pain Eyes: anicteric sclera Ears, Nose, Mouth, Throat: moist mucous membranes, hearing normal Cardiovascular: regular rate and rhythym, no murmur, rub, or gallop Peripheral Pulses: 1+: dorsalis-pedis (R) (as per doppler), dorsalis-pedis (L) ( as per doppler) Respiratory: no respiratory distress, clear to auscultation Gastrointestinal: soft, non-tender abdomen Skin: warm, normal color, mottled Musculoskeletal: full muscle strength Neurologic: AAOx3, sensation intact bilaterally Psychiatric: interacting appropriately, not anxious, not encephalopathic, thought process linear Lab Data & Imaging Review 11/16/17 07:40 11/16/17 05:12 WBC 7.96 10^3/uL (3.80-9.50) 11/16/17 07:40 RBC 3.68 10^6/uL (4.40-6.38) L 11/16/17 07:40 Hgb 12.5 g/dL (13.7-17.5) L 11/16/17 07:40 Hct 36.8 % (40.0-51.0) L 11/16/17 07:40 MCV 100.0 fL (81.5-99.8) H 11/16/17 07:40 MCH 34.0 pg (27.9-34.1) 11/16/17 07:40 MCHC 34.0 g/dL (32.4-36.7) 11/16/17 07:40 RDW 12.6 % (11.5-15.2) 11/16/17 07:40 Plt Count 136 10^3/uL (150-400) L 11/16/17 07:40 MPV 8.5 fL (8.7-11.7) L 11/14/17 06:10 Neut % (Auto) 82.6 % (39.3-74.2) H 11/14/17 06:10 Lymph % (Auto) 8.5 % (15.0-45.0) L 11/14/17 06:10 [place] % (Auto) 8.2 % (4.5-13.0) 11/14/17 06:10 Eos % (Auto) 0.2 % (0.6-7.6) L 11/14/17 06:10 Baso % (Auto) 0.2 % (0.3-1.7) L 11/14/17 06:10 Nucleat RBC Rel Count 0.0 % (0.0-0.2) 11/14/17 06:10 Absolute Neuts (auto) 8.11 10^3/uL (1.70-6.50) H 11/14/17 06:10 Absolute Lymphs (auto) 0.84 10^3/uL (1.00-3.00) L 11/14/17 06:10 Absolute Monos (auto) 0.81 10^3/uL (0.30-0.80) H 11/14/17 06:10 Absolute Eos (auto) 0.02 10^3/uL (0.03-0.40) L 11/14/17 06:10 Absolute Basos (auto) 0.02 10^3/uL (0.02-0.10) 11/14/17 06:10 Absolute Nucleated RBC 0.00 10^3/uL (0-0.01) 11/14/17 06:10 Immature Gran % 0.3 % (0.0-1.1) 11/14/17 06:10 Immature Gran # 0.03 10^3/uL (0.00-0.10) 11/14/17 06:10 PT 14.9 SEC (12.0-15.0) 11/16/17 09:20 INR 1.15 (0.83-1.16) 11/16/17 09:20 APTT 143.5 SEC (23.0-38.0) H* 11/16/17 09:20 Fibrinogen 247 mg/dL (214-456) 11/14/17 13:30 Heparin Anti-Xa, Unfract 0.40 IU/mL (0.32-0.67) 11/16/17 07:40 Sodium 138 mEq/L (135-145) 11/16/17 05:12 Potassium 4.3 mEq/L (3.3-5.0) 11/16/17 05:12 Chloride 102 mEq/L (97-110) 11/16/17 05:12 Carbon Dioxide 26 mEq/l (22-31) 11/16/17 05:12 Anion Gap 10 mEq/L (8-16) 11/16/17 05:12 BUN 7 mg/dL (7-23) 11/16/17 05:12 Creatinine 0.8 mg/dL (0.7-1.3) 11/16/17 05:12 Estimated GFR > 60 11/16/17 05:12 Glucose 99 mg/dL (70-100) 11/16/17 05:12 Calcium 8.0 mg/dL (8.5-10.4) L 11/16/17 05:12 Magnesium 2.2 mg/dL (1.6-2.3) 11/16/17 09:20 Total Bilirubin 0.6 mg/dL (0.1-1.4) 11/16/17 05:12 AST 502 IU/L (17-59) H 11/16/17 05:12 ALT 108 IU/L (21-72) H 11/16/17 05:12 Alkaline Phosphatase 48 IU/L (38-126) 11/16/17 05:12 Total Protein 5.4 g/dL (6.3-8.2) L 11/16/17 05:12 Albumin 2.9 g/dL (3.5-5.0) L 11/16/17 05:12 Triglycerides 106 mg/dL (40-150) 11/16/17 09:20 Cholesterol 131 mg/dL (140-200) L 11/16/17 09:20 Cholesterol Risk Factr 0.5 (0.2-1.0) 11/16/17 09:20 LDL Cholesterol, Calc 67 mg/dL (70-100) L 11/16/17 09:20 LDL Risk Factor 1.0 (0.2-1.0) 11/16/17 09:20 VLDL Cholesterol 21 mg/dL (8-25) 11/16/17 09:20 Non-HDL Cholesterol 88 mg/dL (90-129) L 11/16/17 09:20 HDL Cholesterol 43 mg/dL (40-65) 11/16/17 09:20 LDL/HDL Ratio 2.55 RATIO (1.00-3.64) 11/16/17 09:20 Cholesterol/HDL Ratio 3.05 RATIO (1.00-4.97) 11/16/17 09:20 Patient ABO/Rh A POSITIVE 11/15/17 12:33 Antibody Screen NEGATIVE 11/15/17 12:33 Assessment & Plan Assessment: 47M embolic events secondary to LV thrombus Plan: LV thrombectomy tomorrow afternoon with Dr. Fisher. Pre-op orders placed. Consents to be obtained tomorrow AM.
--- NOTE | 2017-11-16 13:08 | PDINTPN ---
Steam Service Inspector Progress Note Assessment/Plan: Assessment/plan: 47 M admitted 11/13/17 with acute on chronic claudication and LV thrombus and had failed PTCA followed by several days of TPA followed by heparin. He has chronic claudication and known PAD. His LV thrombus apparently has also been acute on chronic and he was evaluated by CT surgery and planning a surgical thrombectomy. * LV thrombus- as above. Went for left heart cath today to r/o CAD or aortic disease prior to surgery. * Pain control- remains on low dose precedex (needed brief IVF bolus for BP today) as well as multiple other medications including narcotics, Ultram. Could consider gabapentin, though pain issues likely to shift postop. * CHF with EF 30-35%- currently stable. Subjective: c/o ongoing LE pain but managed with precedex and dilaudid. Objective: Vital Signs Temp Pulse Resp BP Pulse Ox 36.8 C 70 18 96/76 L 98 11/16/17 08:00 11/16/17 08:00 11/16/17 08:00 11/16/17 08:00 11/16/17 08:00 Laboratory Results 11/16/17 07:40 11/16/17 05:12 11/15/17 11/16/17 11/17/17 05:59 05:59 05:59 Intake Total 2737 1791.2 Output Total 3250 2700 Balance -513 -908.8 PT 14.9 SEC (12.0-15.0) 11/16/17 09:20 INR 1.15 (0.83-1.16) 11/16/17 09:20 Physical Exam - Physical Exam General Appearance: alert, no apparent distress EENT: PERRL/EOMI Neck: supple Respiratory: lungs clear, normal breath sounds, No respiratory distress, No accessory muscle use Cardiac/Chest: regular rate, rhythm Abdomen: non-tender, soft, No distended Skin: normal color, warm/dry, No cyanosis Lymphatic: no adenopathy Neuro/Psych: alert, normal mood/affect, oriented x 3 ICD10 Worksheet Patient Problems: Problems Problem Status Onset Arterial embolism of right leg Acute Left ventricular thrombus without [place] Acute
--- NOTE | 2017-11-16 13:34 | SOAPPROG ---
SOAP Progress Note Assessment/Plan: Assessment: Post TPA lysis for chronic RT leg arterial clot. LT groin sheath left in to be used a A-line for tomorrow LV heart surgery. Painful and swollen RT calf. ? compartment syndrome ? Plan: Discussed above with Dr. Nahid Wang, who will evaluate patient later today. Otherwise status quo with systemic anticoagulation. 11/16/17 13:34 Subjective: No particular complaints Objective: Vital Signs Temp Pulse Resp BP Pulse Ox 36.8 C 70 18 96/76 L 98 11/16/17 08:00 11/16/17 08:00 11/16/17 08:00 11/16/17 08:00 11/16/17 08:00 Laboratory Results 11/16/17 07:40 11/16/17 05:12 11/15/17 11/16/17 11/17/17 05:59 05:59 05:59 Intake Total 2737 1791.2 Output Total 3250 2700 Balance -513 -908.8 PT 14.9 SEC (12.0-15.0) 11/16/17 09:20 INR 1.15 (0.83-1.16) 11/16/17 09:20 LT groin sheath upsized after heart cath today. No hematoma. Dorsum of RT foot mildly swollen. Severely painful RT calf, which is more swollen than yesterday. Pulses not significantly changed. RT foot with mild numbness at toes, and decreased mobility, not changed since Thursday. ICD10 Worksheet Patient Problems: Problems Problem Status Onset Arterial embolism of right leg Acute Left ventricular thrombus without ID Acute
[2017-11-16 16:28] LABS: HEPATITIS A ANTIBODY IGM (BCH) NEGATIVE (NEGATIVE); HEPATITIS B CORE AB IGM NEGATIVE (NEGATIVE)
[2017-11-16 16:39] LABS: HEPATITIS C ANTIBODY TOTAL NEGATIVE (NEGATIVE)
--- NOTE | 2017-11-16 20:23 | SOAPPROG ---
SOAP Progress Note Assessment/Plan: Assessment: good night. c/o calf pain only. foot sensate. no pain with passive ankle flexion/extension. no abd c/o. no left leg c/o. afebrile. abd soft. cath site flat. right calf with significant tenderness, compartments soft , mild hyperemia medial leg, no erythema. strong peroneal signal and biphasic anterior tibial signal. 2+ right pop pulse. foot significantly warmer and pinker than prior to admission. improved right leg outflow. calf pain secondary to microembolic thrombus from TPA - low suspicion for compartment syndrome at this time. recommend continued supportive care and anticoagulation to this end. for open ventricular thrombectomy tomorrow. further leg assessment to be completed after surgery. will need ongoing anticoagulation. findings reviewed with dr. dardne. Care plan reviewed with Dr. Aguilar and Dr. Darden yesterday. (Unstable) ventricular thrombus noted on ECHO. Further discussion with patient disclosed a possible TIA episode earlier in the year - this was precipitated by a FARFAN followed by getting lost while driving - he does not note any localizing extremity deficits with that episode as supported by his significant other. he describes intermittent right hand numbness and clumsiness - this may be positional - he has not had any amaurosis symptoms. He has been on chronic anticoagulants and has experienced a significant right leg thromboembolus despite appropriate treatment. These findings were reviewed with Dr. Fisher regarding the role for surgical ventricular thrombectomy - given the possible unstable nature of his clot, it was recommended to discontinue TPA which was done with possible plans for cardiac intervention this week. He notes persistent calf pain. His foot is slightly less painful than yesterday. He denies new abdominal or back complaints. AVSS. comfortable. abd soft. left groin flat. 2+ right femoral and popliteal pulse. notable right calf tenderness - compartments soft. foot pink and cool. Plan to proceed with completion run off today. will maintain patient on full heparin anticoagulation. patient aware that future leg intervention may be necessary - he will hopefully at least be out of rest pain. his calf tenderness is likely secondary to microemboli from his lysis - this should improve over time. dr. fisher to consult when available. appreciate cards input. for left heart cath preop. Plan: 11/14/17 17:35 11/15/17 09:37 11/16/17 20:19 Objective: Vital Signs Temp Pulse Resp BP Pulse Ox 36.7 C 86 15 125/92 H 94 11/16/17 16:00 11/16/17 19:00 11/16/17 19:00 11/16/17 19:00 11/16/17 19:00 Laboratory Results 11/16/17 07:40 11/16/17 05:12 11/15/17 11/16/17 11/17/17 05:59 05:59 05:59 Intake Total 2737 1791.2 186 Output Total 3250 2700 1850 Balance -513 -908.8 -1664 PT 14.9 SEC (12.0-15.0) 11/16/17 09:20 INR 1.15 (0.83-1.16) 11/16/17 09:20 ICD10 Worksheet Patient Problems: Problems Problem Status Onset Arterial embolism of right leg Acute Left ventricular thrombus without MS Acute - ICD10 Problem Qualifiers (1) Arterial embolism of right leg
[2017-11-16] MEDS ORDERED: CHLORHEXIDINE GLUC HIBICLENS 118 ML BTL TP SCH (21:00)
[2017-11-16 21:54] LABS: HBSAG CONFIRMATION NONCONFIRMED (NEGATIVE); HEPATITIS B SURFACE ANTIGEN NONCONFIRMED (NEGATIVE)
[2017-11-16] MEDS: LORazepam 1 MG TAB PO PRN (22:33)
[2017-11-17] MEDS: HEPARIN/DEXTROSE 500 ML IV SCH (02:18)
[2017-11-17] MEDS: HYDROmorphONE/DILAUDID 6 MG/30 ML PCA IV PRN (07:01)
[2017-11-17] MEDS: ATORVASTATIN CALCIUM 40 MG TAB PO SCH (08:46)
[2017-11-17] MEDS ORDERED: PROTAMINE SULFATE 50 MG/5 ML VIAL IVP ONE (08:57)
[2017-11-17] MEDS ORDERED: MILRINONE/DEXTROSE/100 ML BAG IV ONE (08:57)
[2017-11-17] MEDS ORDERED: CALCIUM CHLORIDE 1 GM/10 ML INJ ONE ×2 (08:57→09:00)
--- NOTE | 2017-11-17 08:57 | PDHPUP ---
History & Physical Update H&P update statement: This history and physical update is based on an assessment of the patient which was completed after admission or registration (within 24 hours), but prior to the surgery/procedure. H&P update: H&P reviewed & patient examined, no change in patient's condition since H&P completed
[2017-11-17] MEDS ORDERED: HEPARIN 10,000 UNIT/10 ML MDV (1,000 UNIT/ML) ONE ×2 (08:58→09:01)
[2017-11-17] MEDS ORDERED: niCARdipine/NACL/200 ML BAG IV ONE (08:58)
[2017-11-17] MEDS ORDERED: NA BICARBONATE 50 MEQ/50 ML VIAL ONE ×2 (08:58→09:02)
[2017-11-17] MEDS ORDERED: DOPamine/DEXTROSE/250 ML BAG IV ONE (08:58)
[2017-11-17] MEDS ORDERED: ceFAZolin 1 GM VIAL ONE (08:59)
[2017-11-17] MEDS ORDERED: ADENOSINE 6 MG/2 ML VIAL ONE (08:59)
[2017-11-17] MEDS ORDERED: AMIODARONE HCL 150 MG/3 ML VIAL ONE ×2 (08:59→09:01)
[2017-11-17] MEDS ORDERED: ALBUMIN 5% 250 ML BOTTLE IV ONE (09:00)
[2017-11-17] MEDS ORDERED: CITRATE DEXTROSE SOLN 500 ML BAG ONE (09:01)
[2017-11-17] MEDS ORDERED: LIDOCAINE 2% 100 MG/5 ML SYR ONE (09:01)
[2017-11-17] MEDS ORDERED: methylPREDNISolone SOD SUCC 1 GM/8 ML VIAL ONE (09:02)
[2017-11-17] MEDS ORDERED: MAGNESIUM SULFATE 1 GM/2 ML VIAL ONE (09:02)
[2017-11-17] MEDS ORDERED: AMINOCAPROIC ACID 5 GM/20 ML VIAL IV ONE (10:00)
[2017-11-17] MEDS ORDERED: INSULIN REGULAR HUMAN 100 UNIT in NS 100 ML IV ONE (10:00)
[2017-11-17] MEDS ORDERED: MANNITOL 25% 12.5 GM/50 ML VIAL IVP ONE (10:00)
[2017-11-17] MEDS ORDERED: NOREPINEPHRINE BITARTRATE 16 MG in NS 250 ML IV ONE (10:00)
[2017-11-17] MEDS ORDERED: CITRATE DEXTROSE SOLN 500 ML BAG MISC ONE (10:00)
[2017-11-17] MEDS ORDERED: SODIUM BICARBONATE 20 MEQ, LIDOCAINE 1% 10 ML in NORMOSOL-R 1,000 ML MISC ONE (10:00)
[2017-11-17] MEDS ORDERED: ceFAZolin 2 GM/DEXTROSE 100 ML IV ONE (10:00)
[2017-11-17] MEDS ORDERED: ceFAZolin 2 GM/SWFI 2 GM/20 ML SYR IVP ONE (10:00)
[2017-11-17] MEDS ORDERED: PHENYLEPHRINE HCL 50 MG in NS 250 ML IV ONE (10:00)
[2017-11-17] MEDS ORDERED: MUPIROCIN 2% 22 GM OINT NS ONE (10:00)
[2017-11-17] MEDS ORDERED: niCARdipine/NACL 200 ML IV SCH (10:00)
[2017-11-17] MEDS ORDERED: MINERAL OIL 10 ML VIAL ONE (13:07)
[2017-11-17] MEDS ORDERED: MIDAZOLAM 2 MG/2 ML VIAL IVP ONE (13:53)
--- NOTE | 2017-11-17 13:53 | PDANEPAE ---
ANE History of Present Illness 47 yo for ventricular thrombectomy ANE Past Medical History - Cardiovascular History Hx Hypertension: Yes Hx Arrhythmias: No Hx Chest Pain: Yes Hx Coronary Artery / Peripheral Vascular Disease: Yes Hx CHF / Valvular Disease: No Hx Palpitations: No - Pulmonary History Hx COPD: No Hx Asthma/Reactive Airway Disease: No Hx Recent Upper Respiratory Infection: No Hx Oxygen in Use at Home: No Hx Sleep Apnea: No Sleep Apnea Screening Result - Last Documented: Negative - Neurologic History Hx Cerebrovascular Accident: No Hx Seizures: No Hx Dementia: No - Endocrine History Hx Diabetes: No - Renal History Hx Renal Disorders: No - Liver History Hx Hepatic Disorders: No - Neurological & Psychiatric Hx Hx Neurological and Psychiatric Disorders: No - Cancer History Hx Cancer: No - Congenital Disorder History Hx Congenital Disorders: No - GI History Hx Gastrointestinal Disorders: No - Surgical History Prior Surgeries: BACK SURGERIES. 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 ANE Patient History - Allergies Allergies/Adverse Reactions: No Known Allergies Allergy (Unverified 11/12/17 17:37) - Home Medications Home medications: home medication list seen and reviewed Home Medications: Atorvastatin Calcium [Lipitor 40 mg (*)] 20 mg PO DAILY 11/13/17 [Last Taken ] Famotidine [Pepcid 20 MG (*)] 20 mg PO BID PRN 11/13/17 [Last Taken 11/11/17] Metoprolol Tartrate [Lopressor 25 mg (*)] 25 mg PO BID 11/13/17 [Last Taken ] Rivaroxaban [Xarelto] 20 mg PO DAILY 11/13/17 [Last Taken 11/11/17] traMADol [Ultram 50 mg (*)] 50 - 100 mg PO Q8H PRN 11/13/17 [Last Taken 11/11/17 ] - NPO status NPO Status: no food or drink >8 hours - Smoking Hx Smoking Status: Former smoker - Alcohol Use Alcohol Use: None - Family Anes Hx Family Hx Anesthesia Complications: NONE ANE Labs/Vital Signs - Labs Result Diagrams: 11/17/17 05:25 11/16/17 05:12 - Vital Signs Blood Pressure: 124/91 Heart Rate: 72 Respiratory Rate: 15 O2 Sat (%): 97 Height: 5 ft 10.98 in Weight: 70.8 kg ANE Physical Exam - Airway Mallampati Score: Class 2 Mouth exam: normal dental/mouth exam - Pulmonary Pulmonary: no respiratory distress - Cardiovascular Cardiovascular: regular rate and rhythym - ASA Status ASA Status: IV ANE Anesthesia Plan Anesthesia Plan: general endotracheal anesthesia Lines/Monitors: arterial line, central line, MARCELO Specialized Airway: video laryngoscope
--- NOTE | 2017-11-17 13:56 | PDINTPN ---
Plant Physiology Teacher Progress Note Assessment/Plan: Assessment/plan: 47 M admitted 11/13/17 with acute on chronic claudication and LV thrombus and had failed PTCA followed by several days of TPA followed by heparin. He has chronic claudication and known PAD. His LV thrombus apparently has also been acute on chronic and he was evaluated by CT surgery and planning a surgical thrombectomy. * LV thrombus- as above. Went for left heart cath 11/16 which was negative. Planning OR this afternoon. * Pain control- remains on low dose precedex (needed brief IVF bolus for BP 11/16 ) as well as multiple other medications including narcotics, Ultram. Could consider gabapentin, though pain issues likely to shift postop. * CHF with EF 30-35%- currently stable. 11/17/17 13:55 Subjective: no events Objective: Vital Signs Temp Pulse Resp BP Pulse Ox 36.8 C 72 15 124/91 H 97 11/17/17 13:02 11/17/17 13:53 11/17/17 13:53 11/17/17 13:53 11/17/17 13:53 Laboratory Results 11/17/17 05:25 11/16/17 05:12 11/16/17 11/17/17 11/18/17 05:59 05:59 05:59 Intake Total 1791.2 1758 Output Total 2700 2500 Balance -908.8 -742 PT 14.9 SEC (12.0-15.0) 11/16/17 09:20 INR 1.15 (0.83-1.16) 11/16/17 09:20 Physical Exam - Physical Exam General Appearance: no apparent distress EENT: PERRL/EOMI Neck: supple Respiratory: lungs clear, normal breath sounds, No respiratory distress Cardiac/Chest: regular rate, rhythm, edema Abdomen: non-tender, soft, No distended Skin: normal color, warm/dry, No cyanosis Lymphatic: no adenopathy Extremities: pedal edema Neuro/Psych: alert, normal mood/affect, oriented x 3 ICD10 Worksheet Patient Problems: Problems Problem Status Onset Arterial embolism of right leg Acute Left ventricular thrombus without [place] Acute
[2017-11-17] MEDS ORDERED: PROPOFOL/EMULSION 500 MG/50 ML BOTTLE IV ONE (14:01)
[2017-11-17] MEDS ORDERED: fentaNYL 250 MCG/5 ML INJ ONE (14:01)
[2017-11-17] MEDS ORDERED: REMIFENTANIL HCL 1 MG VIAL ONE (14:03)
[2017-11-17] MEDS ORDERED: MIDAZOLAM 2 MG/2 ML VIAL ONE (14:07)
[2017-11-17] MEDS ORDERED: ceFAZolin 2 GM/SWFI 20 ML SYR IVP ONE (14:07)
[2017-11-17] MEDS ORDERED: NITROGLYCERIN/D5W 50 MG/250 ML BOTTLE IV ONE (15:08)
--- NOTE | 2017-11-17 15:33 | SOAPPROG ---
CARY Progress Note Assessment/Plan: Assessment: no new overnight complaint. calf pain unchanged. no other new complaints. foot pink and warm. calf soft with notable tenderness - unchanged. signals unchanged peroneal/PT/DP. palpable pop pulse. leg overall improved. pain remains secondary to microembolic changes with reperfusion. does not appear to have concern for compartment syndrome. for cardiac surgery today. will reasses leg postop. continue lifelong anticoagulation. good night. c/o calf pain only. foot sensate. no pain with passive ankle flexion/extension. no abd c/o. no left leg c/o. afebrile. abd soft. cath site flat. right calf with significant tenderness, compartments soft, mild hyperemia medial leg, no erythema. strong peroneal signal and biphasic anterior tibial signal. 2+ right pop pulse. foot significantly warmer and pinker than prior to admission. improved right leg outflow. calf pain secondary to microembolic thrombus from TPA - low suspicion for compartment syndrome at this time. recommend continued supportive care and anticoagulation to this end. for open ventricular thrombectomy tomorrow. further leg assessment to be completed after surgery. will need ongoing anticoagulation. findings reviewed with dr. darden. Care plan reviewed with Dr. Aguilar and Dr. Darden yesterday. (Unstable) ventricular thrombus noted on ECHO. Further discussion with patient disclosed a possible TIA episode earlier in the year - this was precipitated by a FARFAN followed by getting lost while driving - he does not note any localizing extremity deficits with that episode as supported by his significant other. he describes intermittent right hand numbness and clumsiness - this may be positional - he has not had any amaurosis symptoms. He has been on chronic anticoagulants and has experienced a significant right leg thromboembolus despite appropriate treatment. These findings were reviewed with Dr. Fisher regarding the role for surgical ventricular thrombectomy - given the possible unstable nature of his clot, it was recommended to discontinue TPA which was done with possible plans for cardiac intervention this week. He notes persistent calf pain. His foot is slightly less painful than yesterday. He denies new abdominal or back complaints. AVSS. comfortable. abd soft. left groin flat. 2+ right femoral and popliteal pulse. notable right calf tenderness - compartments soft. foot pink and cool. Plan to proceed with completion run off today. will maintain patient on full heparin anticoagulation. patient aware that future leg intervention may be necessary - he will hopefully at least be out of rest pain. his calf tenderness is likely secondary to microemboli from his lysis - this should improve over time. dr. fisher to consult when available. appreciate cards input. for left heart cath preop. Plan: 11/14/17 17:35 11/15/17 09:37 11/16/17 20:19 11/17/17 15:30 Objective: Vital Signs Temp Pulse Resp BP Pulse Ox 36.8 C 72 15 124/91 H 97 11/17/17 13:02 11/17/17 13:53 11/17/17 13:53 11/17/17 13:53 11/17/17 13:53 Laboratory Results 11/17/17 05:25 11/16/17 05:12 11/16/17 11/17/17 11/18/17 05:59 05:59 05:59 Intake Total 1791.2 1758 Output Total 2700 2500 Balance -908.8 -742 PT 14.9 SEC (12.0-15.0) 11/16/17 09:20 INR 1.15 (0.83-1.16) 11/16/17 09:20 ICD10 Worksheet Patient Problems: Problems Problem Status Onset Arterial embolism of right leg Acute Left ventricular thrombus without [place] Acute - ICD10 Problem Qualifiers (1) Arterial embolism of right leg
[2017-11-17] MEDS ORDERED: fentaNYL 100 MCG/2 ML INJ ONE (16:10)
[2017-11-17] MEDS ORDERED: SODIUM CL NASAL 45 ML BTL EACHNARE PRN (16:14)
[2017-11-17] MEDS ORDERED: D50W 25 GM/50 ML SYR IVP PRN (16:14)
[2017-11-17] MEDS ORDERED: POLYETHYLENE GLYCOL 3350 17 GM PKT PO PRN (16:14)
[2017-11-17] MEDS ORDERED: METOCLOPRAMIDE 10 MG/2 ML VIAL IVP PRN (16:14)
[2017-11-17] MEDS ORDERED: BISACODYL 10 MG SUPP PR PRN (16:14)
[2017-11-17] MEDS ORDERED: LACTULOSE 20 GM/30 ML UDCUP PO PRN (16:14)
[2017-11-17] MEDS ORDERED: CEPACOL LOZENGE PO PRN (16:14)
[2017-11-17] MEDS ORDERED: ONDANSETRON DISINTEGRATING 4 MG TAB PO PRN (16:14)
[2017-11-17] MEDS ORDERED: MEPERIDINE 25 MG/0.5 ML AMP IVP PRN (16:14)
[2017-11-17] MEDS ORDERED: MAGNESIUM SULF 2 GM/WATER 50 ML IV ONE (16:14)
[2017-11-17] MEDS ORDERED: POTASSIUM Cl (KCl) 50 ML IV PRN (16:14)
[2017-11-17] MEDS ORDERED: MAGNESIUM HYDROXIDE 30 ML UDCUP PO PRN (16:14)
[2017-11-17] MEDS ORDERED: ACETAMINOPHEN 650 MG SUPP PR PRN (16:14)
[2017-11-17] MEDS ORDERED: PANTOPRAZOLE SODIUM 40 MG VIAL IVP ONE (16:14)
[2017-11-17] MEDS ORDERED: NS 1,000 ML IV SCH (16:15)
[2017-11-17] MEDS ORDERED: INSULIN REGULAR HUMAN 100 UNIT in NS 100 ML IV SCH (16:30)
[2017-11-17] MEDS: KETOROLAC 30 MG/1 ML SDV IVP PRN ×2 (16:49→23:52)
--- NOTE | 2017-11-17 17:30 | GOP ---
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 POSTOPERATIVE DIAGNOSIS: Unstable left ventricular thrombus, status post remote anterior wall myocar dial infarction with multiple embolic events. PROCEDURE PERFORMED: 1. Apical ventriculotomy with evacuation of thrombus. 2. Reduction in apical aneurysm. 3. Ligate left atrial appendage. FINDINGS: Patient presented with evidence of acute occlusive disease peripherally. On echo, he was found to have a large unstable thrombus in the apex. He had a known thrombus from a myocardial infar ction approximately 8-years prior and had been on anticoagulants. Diagnostic catheterization showed no residual obstructive disease. He did have a stent in his LAD. DESCRIPTION OF PROCEDURE: He was consented for surgery, brought to the operating room, intubated, mo nitoring lines were placed. He was prepped and draped in sterile classical manner. Sternotomy was p erformed. Transesophageal echo confirmed the presence of thrombus. He was heparinized, cannulated w ithout manipulating the heart. Cardiopulmonary bypass was begun. A cardioplegic arrest was obtained with antegrade cardioplegia and topical hypothermia. He was kept normothermic. The left atrial maritza endage was doubly ligated with ligatures. We then exposed the apex of the heart. We did an approxim ately 3 cm ventriculotomy at the apex approximately 2 cm lateral to the distal LAD. A large fresh th rombus was noted approximately 2 x 3 cm. The trabeculae were rather prominent there. The distal api trinh trabeculae were divided in order to remove thrombus that was deep within it. There was evidence of an old thrombus underneath, which was also endarterectomized from the wall. The LV chamber was co piously irrigated. The ventriculotomy was noted to have muscular wall with some evidence of interspe rsed infarction and scar. Minimal reduction was performed. Two pieces of felt were placed on either side. Horizontal mattress 3-0 Prolene sutures were used to reapproximate and 0 Prolene was used as a continuous suture begun at each end for closure. The cross-clamp was removed with suction on the a scending aortic vent in Trendelenburg. We did multiple aspirations of the apex until no further air was identified. We then weaned the patient from bypass. The heparin was reversed with protamine. T he cannula was removed and oversewn. One right pleural and mediastinal drain was placed. The thymic fat and pericardium were closed. Chest was closed in standard fashion. Patient was returned to ICU in stable condition. /[id number]/MODL
[2017-11-17] MEDS: fentaNYL 100 MCG/2 ML INJ IVP PRN ×2 (17:59→19:18)
[2017-11-17] MEDS: ALBUMIN 5% 250 ML IV PRN ×2 (18:38→21:26)
[2017-11-17] MEDS: DEXMEDETOMIDINE HCL 400 MCG in NS 100 ML IV SCH (19:59)
[2017-11-17] MEDS: SENNOSIDES/DOCUSATE SODIUM TAB PO SCH (21:27)
--- NOTE | 2017-11-17 21:48 | POSTANESTH ---
Post Anesthetic Evaluation Cardiovascular Status: Normal, Stable Respiratory Status: Tx Decrease in SpO2 Level of Consciousness/Mental Status: Can Participate in Eval Pain Control: Adequate, Prn Tx Ordered Nausea/Vomiting Control: Adequate, Prn Tx Ordered Complications Possibly Related to Anesthesia: None Noted
[2017-11-17] MEDS: MUPIROCIN 2% 22 GM OINT NS SCH (21:56)
[2017-11-17] MEDS: ceFAZolin 2 GM in D5W 100 ML IV SCH (21:57)
[2017-11-17] MEDS ORDERED: ceFAZolin 2 GM/DEXTROSE 100 ML IV SCH (22:00)
[2017-11-18 03:57] LABS: PLATELET COUNT 92 10^3/uL (150-400)
[2017-11-18] MEDS: DEXMEDETOMIDINE HCL 400 MCG in NS 100 ML IV SCH (04:03)
[2017-11-18 04:05] LABS: INR 1.18 (0.83-1.16); PROTIME(PATIENT) 15.2 SEC (12.0-15.0)
[2017-11-18] MEDS ORDERED: HEPARIN 5,000 UNIT/0.5 ML INJ SC SCH (06:00)
--- NOTE | 2017-11-18 06:08 | SOAPPROG ---
SOAP Progress Note Assessment/Plan: POD #1: LV thrombus evacuation via apical ventriculotomy, reduction of LV apex aneurysm, ligation left atrial appendage Unstable LV thrombus s/p evacuation via apical ventriculotomy - No neuro deficits - Continue heparin gtt with transition to Coumadin to begin tomorrow - CTs to bulb suction, AL/FC out - Transfer to PCU later today/tomorrow Distal R SFA occlusion s/p TPA lysis with IR - RLE with less pain this morning - Mgmt as per LV thrombus Acute blood loss anemia with thrombocytopenia - Stable without the need for transfusions - OK to start heparin gtt with platelets < 100 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 Denies SOB. Objective: Vital Signs Temp Pulse Resp BP Pulse Ox 35.6 C L 55 L 16 101/59 L 99 11/18/17 05:00 11/18/17 05:00 11/18/17 05:00 11/18/17 05:00 11/18/17 05:00 Laboratory Results 11/18/17 03:45 11/18/17 03:45 11/17/17 11/18/17 11/19/17 05:59 05:59 05:59 Intake Total 1758 57 Output Total 2500 2685 Balance -742 -2628 PT 15.2 SEC (12.0-15.0) H 11/18/17 03:45 INR 1.18 (0.83-1.16) H 11/18/17 03:45 Physical Exam - Physical Exam General Appearance: WD/WN, alert, no apparent distress EENT: No scleral icterus (R), No scleral icterus (L) Neck: normal inspection Respiratory: No respiratory distress Cardiac/Chest: regular rate, rhythm Abdomen: non-tender, soft, No distended Skin: normal color, warm/dry Extremities: No pedal edema Neuro/Psych: no motor/sensory deficits, alert, normal mood/affect, oriented x 3 ICD10 Worksheet Patient Problems: Problems Problem Status Onset Aneurysm of heart Acute Arterial embolism of right leg Acute Coronary stent patent Acute Left ventricular thrombus without ME Acute Right leg pain Acute
[2017-11-18] MEDS: ceFAZolin 2 GM in D5W 100 ML IV SCH ×3 (06:16→21:29)
[2017-11-18] MEDS: ALBUMIN 5% 250 ML IV PRN ×2 (07:24→07:41)
[2017-11-18] MEDS ORDERED: HEPARIN 10,000 UNIT/10 ML MDV (1,000 UNIT/ML) IVP ONE (07:56)
[2017-11-18] MEDS: KETOROLAC 30 MG/1 ML SDV IVP PRN ×3 (07:56→23:34)
[2017-11-18] MEDS ORDERED: HEPARIN 10,000 UNIT/10 ML MDV (1,000 UNIT/ML) IVP PRN (07:56)
[2017-11-18] MEDS ORDERED: HEPARIN/DEXTROSE 500 ML IV SCH (08:00)
[2017-11-18] MEDS: MUPIROCIN 2% 22 GM OINT NS SCH ×2 (09:00→21:30)
[2017-11-18] MEDS ORDERED: ALBUMIN 5% 500 ML IV ONE ×2 (09:30→10:30)
[2017-11-18] MEDS: ASPIRIN 81 MG CHEWABLE TAB PO SCH (09:34)
[2017-11-18] MEDS: SENNOSIDES/DOCUSATE SODIUM TAB PO SCH ×2 (09:34→21:30)
[2017-11-18] MEDS: PANTOPRAZOLE SODIUM 40 MG TAB PO SCH (09:34)
[2017-11-18] MEDS: HYDROCODONE/APAP 5/325 TAB PO PRN ×2 (09:37→13:31)
[2017-11-18] MEDS: ONDANSETRON 4 MG/2 ML VIAL IVP PRN (09:45)
[2017-11-18] MEDS: fentaNYL 100 MCG/2 ML INJ IVP PRN ×4 (11:16→23:34)
--- NOTE | 2017-11-18 11:37 | ASMTCMCOM ---
CM Note CM Note Notes: Patient had surgery yesterday with Dr. Fisher. He passed his swallow and was started on heparin. Heart rates are good today. Awaiting therapy evals to see what patient's d/c needs might be. D/C plan TBD. CM will follow. Date Signed: 11/18/2017 11:37 AM Electronically Signed By:Lisa Clark LCSW
[2017-11-18] MEDS ORDERED: NS 1,000 ML IV ONE (12:00)
--- NOTE | 2017-11-18 12:36 | PDINTPN ---
Engineering Clerk Progress Note Assessment/Plan: Assessment/plan: 47 M admitted 11/13/17 with acute on chronic claudication and LV thrombus and had failed PTCA followed by several days of TPA followed by heparin. He has chronic claudication and known PAD. His LV thrombus apparently has also been acute on chronic and he was evaluated by CT surgery and planning a surgical thrombectomy. * LV thrombus- s/p surgical thrombectomy of acute and chronic thrombus as well as INOCENCIO ligation without complications and extubated postop. * Pain control- currently stable * CHF with EF 30-35%- currently stable on RA * RLE thrombus s/p TPA. Heparin drip Subjective: feels well with good pain control, no SOB Objective: Vital Signs Temp Pulse Resp BP Pulse Ox 35.8 C L 65 15 80/57 L 97 11/18/17 06:00 11/18/17 10:00 11/18/17 10:00 11/18/17 10:00 11/18/17 10:00 Laboratory Results 11/18/17 03:45 11/18/17 03:45 11/17/17 11/18/17 11/19/17 05:59 05:59 05:59 Intake Total 9416 673 7164 Output Total 2500 3355 15 Balance -742 -5009 1485 PT 15.2 SEC (12.0-15.0) H 11/18/17 03:45 INR 1.18 (0.83-1.16) H 11/18/17 03:45 Physical Exam - Physical Exam General Appearance: WD/WN, alert, no apparent distress EENT: PERRL/EOMI Neck: supple Respiratory: lungs clear, normal breath sounds, No respiratory distress, No accessory muscle use Cardiac/Chest: regular rate, rhythm, edema Abdomen: non-tender, soft, No distended Skin: normal color, warm/dry, No cyanosis Lymphatic: no adenopathy Extremities: pedal edema Neuro/Psych: alert, normal mood/affect, oriented x 3 ICD10 Worksheet Patient Problems: Problems Problem Status Onset Arterial embolism of right leg Acute Left ventricular thrombus without [place] Acute
[2017-11-18] MEDS ORDERED: SIMETHICONE DROPS 30 ML BOTTLE PO PRN (13:22)
[2017-11-18] MEDS ORDERED: SIMETHICONE 80 MG TAB CHEW PO PRN (14:44)
[2017-11-18] MEDS ORDERED: fentaNYL 50 MCG PATCH TD SCH (16:00)
--- NOTE | 2017-11-18 16:26 | SOAPPROG ---
SOAP Progress Note Assessment/Plan: Assessment: s/p ventriculotomy and thrombectomy. doing very well overall. c/o sternal pain only. right calf pain better. no other new complaints. afebrile. abd soft. right calf much less tender. compartments soft. foot pink and warm. pop pulse unchanged. recovering well. improved right foot overall - will further assess as he continues to recover from open heart surgery. he will be better than prior to intervention without further rest pain. anticoagulation to be determined by cards. any further leg intervention TBD at outpatient follow-up. care plan was reviewed with the patient's PCP Dr. Montanez yesterday via phone. patient appreciative and pleased with his progress. no new overnight complaint. calf pain unchanged. no other new complaints. foot pink and warm. calf soft with notable tenderness - unchanged. signals unchanged peroneal/PT/DP. palpable pop pulse. leg overall improved. pain remains secondary to microembolic changes with reperfusion. does not appear to have concern for compartment syndrome. for cardiac surgery today. will reasses leg postop. continue lifelong anticoagulation. good night. c/o calf pain only. foot sensate. no pain with passive ankle flexion/extension. no abd c/o. no left leg c/o. afebrile. abd soft. cath site flat. right calf with significant tenderness, compartments soft, mild hyperemia medial leg, no erythema. strong peroneal signal and biphasic anterior tibial signal. 2+ right pop pulse. foot significantly warmer and pinker than prior to admission. improved right leg outflow. calf pain secondary to microembolic thrombus from TPA - low suspicion for compartment syndrome at this time. recommend continued supportive care and anticoagulation to this end. for open ventricular thrombectomy tomorrow. further leg assessment to be completed after surgery. will need ongoing anticoagulation. findings reviewed with dr. darden. Care plan reviewed with Dr. Aguilar and Dr. Darden yesterday. (Unstable) ventricular thrombus noted on ECHO. Further discussion with patient disclosed a possible TIA episode earlier in the year - this was precipitated by a FARFAN followed by getting lost while driving - he does not note any localizing extremity deficits with that episode as supported by his significant other. he describes intermittent right hand numbness and clumsiness - this may be positional - he has not had any amaurosis symptoms. He has been on chronic anticoagulants and has experienced a significant right leg thromboembolus despite appropriate treatment. These findings were reviewed with Dr. Fisher regarding the role for surgical ventricular thrombectomy - given the possible unstable nature of his clot, it was recommended to discontinue TPA which was done with possible plans for cardiac intervention this week. He notes persistent calf pain. His foot is slightly less painful than yesterday. He denies new abdominal or back complaints. AVSS. comfortable. abd soft. left groin flat. 2+ right femoral and popliteal pulse. notable right calf tenderness - compartments soft. foot pink and cool. Plan to proceed with completion run off today. will maintain patient on full heparin anticoagulation. patient aware that future leg intervention may be necessary - he will hopefully at least be out of rest pain. his calf tenderness is likely secondary to microemboli from his lysis - this should improve over time. dr. fisher to consult when available. appreciate cards input. for left heart cath preop. Plan: 11/14/17 17:35 11/15/17 09:37 11/16/17 20:19 11/17/17 15:30 11/18/17 16:22 Objective: Vital Signs Temp Pulse Resp BP Pulse Ox 36.1 C 66 15 101/68 90 L 11/18/17 11:00 11/18/17 12:00 11/18/17 12:00 11/18/17 13:50 11/18/17 13:45 Laboratory Results 11/18/17 03:45 11/17/17 11/18/17 11/19/17 05:59 05:59 05:59 Intake Total 6676 676 1478 Output Total 8089 6267 15 Kuylqkx -595 -1503 1485 PT 15.2 SEC (12.0-15.0) H 11/18/17 03:45 INR 1.18 (0.83-1.16) H 11/18/17 03:45 ICD10 Worksheet Patient Problems: Problems Problem Status Onset Aneurysm of heart Acute Arterial embolism of right leg Acute Coronary stent patent Acute Left ventricular thrombus without [place] Acute Right leg pain Acute - ICD10 Problem Qualifiers (1) Arterial embolism of right leg
[2017-11-18] MEDS ORDERED: WARFARIN SODIUM 2.5 MG TAB PO ONE (17:00)
[2017-11-18 17:02] LABS: INR 1.21 (0.83-1.16); PROTIME(PATIENT) 15.5 SEC (12.0-15.0)
[2017-11-18] MEDS ORDERED: WARFARIN SODIUM 2 MG TAB PO ONE (18:45)
[2017-11-18] MEDS: ACETAMINOPHEN 325 MG TAB PO PRN (19:22)
[2017-11-19] MEDS: fentaNYL 100 MCG/2 ML INJ IVP PRN (04:02)
[2017-11-19] MEDS: ceFAZolin 2 GM in D5W 100 ML IV SCH (05:23)
[2017-11-19] MEDS: KETOROLAC 30 MG/1 ML SDV IVP PRN (05:23)
[2017-11-19 06:01] LABS: INR 1.16 (0.83-1.16)
--- NOTE | 2017-11-19 06:37 | SOAPPROG ---
SOAP Progress Note Assessment/Plan: SOAP Progress Note Assessment/Plan: POD#2 LV thrombus evacuation via apical ventriculotomy, reduction of LV apex aneurysm, ligation left atrial appendage Unstable LV thrombus s/p evacuation via apical ventriculotomy - No neuro deficits - Antihrombotic prophylaxis with hep bridge until INR > 1.7 - CTs to bulb suction Distal R SFA occlusion s/p TPA lysis with IR - RLE remains swollen but warm and with dopplerable pulses - Mgmt as per LV thrombus - Wt bearing as tolerated Acute blood loss anemia with thrombocytopenia - Stable without the need for transfusions - Platelet count appears to be rebounding 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 Switch heparin to lovenox. Coumadin 5 mg today. Begin daily diuresis. Start metoprolol 12.5 mg BID with conservative hold parameters. Inc mobility as tolerated. Tx to PCU. 11/19/17 06:55 Subjective: Feels ok. Eating a little. Able to walk with some wt on rt foot. Eager for a shower. Objective: Vital Signs Temp Pulse Resp BP Pulse Ox 36.7 C 86 15 102/69 90 L 11/19/17 04:00 11/19/17 06:00 11/19/17 06:00 11/19/17 06:00 11/19/17 06:00 Laboratory Results 11/19/17 05:30 11/19/17 05:30 11/18/17 11/19/17 11/20/17 05:59 05:59 05:59 Intake Total 816 4038 Output Total 3355 1325 Balance -2069 2713 PT 15.0 SEC (12.0-15.0) 11/19/17 05:30 INR 1.16 (0.83-1.16) 11/19/17 05:30 Holding SR with SBPs > 100. Off suppl O2. CXR -> left basilar atelectasis. CTOP below removal criteria. Positive fluid balance, ~ 3kg. INR yet to budge. Physical Exam - Physical Exam General Appearance: alert, no apparent distress Respiratory: normal breath sounds (grossly), other (blakes x 2 to bulb suction, serosang drainage) Cardiac/Chest: regular rate, rhythm, tachycardia, other (Sternotomy CDI) Peripheral Pulses: 1+: dorsalis-pedis (R) (by doppler) Abdomen: non-tender, soft Skin: warm/dry Extremities: swelling (RLE 1-2+ generalized) ICD10 Worksheet Patient Problems: Problems Problem Status Onset Aneurysm of heart Acute Arterial embolism of right leg Acute Coronary stent patent Acute Left ventricular thrombus without [place] Acute Right leg pain Acute
[2017-11-19] MEDS ORDERED: HYDROmorphONE/DILAUDID 1 MG/ML INJ IVP PRN (07:27)
[2017-11-19] MEDS ORDERED: FUROSEMIDE 40 MG/4 ML VIAL IVP ONE (07:42)
[2017-11-19] MEDS: SENNOSIDES/DOCUSATE SODIUM TAB PO SCH ×2 (08:06→20:34)
[2017-11-19] MEDS: MUPIROCIN 2% 22 GM OINT NS SCH (08:06)
[2017-11-19] MEDS: ASPIRIN 81 MG CHEWABLE TAB PO SCH (08:06)
[2017-11-19] MEDS: ENOXAPARIN 80 MG/0.8 ML SYR SC SCH ×2 (08:06→20:33)
[2017-11-19] MEDS: PANTOPRAZOLE SODIUM 40 MG TAB PO SCH (08:06)
[2017-11-19] MEDS: ONDANSETRON 4 MG/2 ML VIAL IVP PRN (10:09)
[2017-11-19] MEDS: oxyCODONE IR 5 MG TAB PO PRN ×4 (10:09→20:33)
[2017-11-19] MEDS: ACETAMINOPHEN 325 MG TAB PO PRN ×2 (10:46→20:33)
[2017-11-19] MEDS ORDERED: POTASSIUM CL 20 MEQ TAB PO ONE (12:00)
[2017-11-19] MEDS: traMADol 50 MG TAB PO PRN ×2 (12:29→18:18)
--- NOTE | 2017-11-19 13:34 | SOAPPROG ---
SOAP Progress Note Assessment/Plan: Assessment: good night. pain better. walked in room. better right calf ROM. no new foot concerns. up in chair. comfortable. appropriate right calf swelling. compartments soft. tenderness less. foot pink and warm. better ROM. planning for ongoing Coumadin therapy. will reassess in office in 2-3 weeks. apply CALVIN hose for swelling symptomatic relief (reperfusion/microemboli) . s/p ventriculotomy and thrombectomy. doing very well overall. c/o sternal pain only. right calf pain better. no other new complaints. afebrile. abd soft. right calf much less tender. compartments soft. foot pink and warm. pop pulse unchanged. recovering well. improved right foot overall - will further assess as he continues to recover from open heart surgery. he will be better than prior to intervention without further rest pain. anticoagulation to be determined by cards. any further leg intervention TBD at outpatient follow-up. care plan was reviewed with the patient's PCP Dr. Montanez yesterday via phone. patient appreciative and pleased with his progress. no new overnight complaint. calf pain unchanged. no other new complaints. foot pink and warm. calf soft with notable tenderness - unchanged. signals unchanged peroneal/PT/DP. palpable pop pulse. leg overall improved. pain remains secondary to microembolic changes with reperfusion. does not appear to have concern for compartment syndrome. for cardiac surgery today. will reasses leg postop. continue lifelong anticoagulation. good night. c/o calf pain only. foot sensate. no pain with passive ankle flexion/extension. no abd c/o. no left leg c/o. afebrile. abd soft. cath site flat. right calf with significant tenderness, compartments soft, mild hyperemia medial leg, no erythema. strong peroneal signal and biphasic anterior tibial signal. 2+ right pop pulse. foot significantly warmer and pinker than prior to admission. improved right leg outflow. calf pain secondary to microembolic thrombus from TPA - low suspicion for compartment syndrome at this time. recommend continued supportive care and anticoagulation to this end. for open ventricular thrombectomy tomorrow. further leg assessment to be completed after surgery. will need ongoing anticoagulation. findings reviewed with dr. darden. Care plan reviewed with Dr. Aguilar and Dr. Darden yesterday. (Unstable) ventricular thrombus noted on ECHO. Further discussion with patient disclosed a possible TIA episode earlier in the year - this was precipitated by a FARFAN followed by getting lost while driving - he does not note any localizing extremity deficits with that episode as supported by his significant other. he describes intermittent right hand numbness and clumsiness - this may be positional - he has not had any amaurosis symptoms. He has been on chronic anticoagulants and has experienced a significant right leg thromboembolus despite appropriate treatment. These findings were reviewed with Dr. Fisher regarding the role for surgical ventricular thrombectomy - given the possible unstable nature of his clot, it was recommended to discontinue TPA which was done with possible plans for cardiac intervention this week. He notes persistent calf pain. His foot is slightly less painful than yesterday. He denies new abdominal or back complaints. AVSS. comfortable. abd soft. left groin flat. 2+ right femoral and popliteal pulse. notable right calf tenderness - compartments soft. foot pink and cool. Plan to proceed with completion run off today. will maintain patient on full heparin anticoagulation. patient aware that future leg intervention may be necessary - he will hopefully at least be out of rest pain. his calf tenderness is likely secondary to microemboli from his lysis - this should improve over time. dr. fisher to consult when available. appreciate cards input. for left heart cath preop. Plan: 11/14/17 17:35 11/15/17 09:37 11/16/17 20:19 11/17/17 15:30 11/18/17 16:22 11/19/17 13:32 Objective: Vital Signs Temp Pulse Resp BP Pulse Ox 36.9 C 102 H 20 118/70 90 L 11/19/17 12:29 11/19/17 12:29 11/19/17 12:29 11/19/17 12:29 11/19/17 12:29 Laboratory Results 11/19/17 05:30 11/19/17 05:30 11/18/17 11/19/17 11/20/17 05:59 05:59 05:59 Intake Total 816 4038 330 Output Total 9945 1325 1125 Balance -3699 5533 -797 PT 15.0 SEC (12.0-15.0) 11/19/17 05:30 INR 1.16 (0.83-1.16) 11/19/17 05:30 ICD10 Worksheet Patient Problems: Problems Problem Status Onset Aneurysm of heart Acute Arterial embolism of right leg Acute Coronary stent patent Acute Left ventricular thrombus without ND Acute Right leg pain Acute - ICD10 Problem Qualifiers (1) Arterial embolism of right leg
--- NOTE | 2017-11-19 15:29 | PDINTPN ---
Academic Support Specialist Progress Note Assessment/Plan: Assessment/plan: 47 M admitted 11/13/17 with acute on chronic claudication and LV thrombus and had failed PTCA followed by several days of TPA followed by heparin. He has chronic claudication and known PAD. His LV thrombus apparently has also been acute on chronic and he was evaluated by CT surgery and planning a surgical thrombectomy. * LV thrombus- s/p surgical thrombectomy of acute and chronic thrombus as well as INOCENCIO ligation without complications and extubated postop. Remains on RA * Pain control- currently stable * CHF with EF 30-35%- currently stable on RA * RLE thrombus s/p TPA. Heparin drip changed to LMWH and plans for coumadin * OK for PCU 11/19/17 15:28 Subjective: no events Objective: Vital Signs Temp Pulse Resp BP Pulse Ox 36.9 C 102 H 20 118/70 90 L 11/19/17 12:29 11/19/17 12:29 11/19/17 12:29 11/19/17 12:29 11/19/17 12:29 Laboratory Results 11/19/17 05:30 11/19/17 05:30 11/18/17 11/19/17 11/20/17 05:59 05:59 05:59 Intake Total 816 4038 330 Output Total 3355 1325 1125 Balance -2539 2713 -795 PT 15.0 SEC (12.0-15.0) 11/19/17 05:30 INR 1.16 (0.83-1.16) 11/19/17 05:30 Physical Exam - Physical Exam General Appearance: WD/WN, alert, no apparent distress EENT: PERRL/EOMI Neck: supple Respiratory: lungs clear, normal breath sounds, No respiratory distress, No accessory muscle use Cardiac/Chest: regular rate, rhythm, other (incisions clean and dry), No edema Abdomen: non-tender, soft, No distended Skin: normal color, warm/dry, No cyanosis Lymphatic: no adenopathy Extremities: No pedal edema Neuro/Psych: alert, normal mood/affect, oriented x 3 ICD10 Worksheet Patient Problems: Problems Problem Status Onset Aneurysm of heart Acute Arterial embolism of right leg Acute Coronary stent patent Acute Left ventricular thrombus without [place] Acute Right leg pain Acute
[2017-11-19] MEDS ORDERED: WARFARIN SODIUM 5 MG TAB PO ONE (16:00)
[2017-11-19] MEDS: METOPROLOL TARTRATE 25 MG TAB PO SCH (20:34)
[2017-11-20] MEDS: traMADol 50 MG TAB PO PRN ×3 (00:45→19:19)
[2017-11-20] MEDS: ACETAMINOPHEN 325 MG TAB PO PRN ×2 (04:21→23:04)
[2017-11-20] MEDS: oxyCODONE IR 5 MG TAB PO PRN ×5 (04:22→23:03)
[2017-11-20 04:55] LABS: INR 2.44 (0.83-1.16); PROTIME(PATIENT) 26.5 SEC (12.0-15.0)
--- NOTE | 2017-11-20 06:20 | SOAPPROG ---
SOAP Progress Note Assessment/Plan: SOAP Progress Note Assessment/Plan: POD#3 LV thrombus evacuation via apical ventriculotomy, reduction of LV apex aneurysm, ligation left atrial appendage Unstable LV thrombus s/p evacuation via apical ventriculotomy - No neuro deficits - Antihrombotic prophylaxis with LMWH bridge until INR > 1.7 - CTs and wires out Distal R SFA occlusion s/p TPA lysis with IR - RLE remains swollen but warm and with dopplerable pulses - Mgmt as per LV thrombus - Wt bearing as tolerated Acute blood loss anemia with thrombocytopenia - Stable without the need for transfusions - Platelet count appears to be rebounding 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 No coumadin today. Cont daily diuresis. Cont metoprolol 12.5 mg BID with conservative hold parameters. Cont inc mobility as tolerated. Dispo - Anticipate home tomorrow without services. 11/20/17 06:17 Subjective: Feels well. Improving mobility. Satisfactory analgesia. Planning to stay with brother in [place] until further along into recovery. Objective: Vital Signs Temp Pulse Resp BP Pulse Ox 36.8 C 96 17 124/71 H 94 11/20/17 04:00 11/20/17 04:00 11/20/17 04:00 11/20/17 04:00 11/20/17 04:00 Laboratory Results 11/19/17 05:30 11/20/17 04:30 11/19/17 11/20/17 11/21/17 05:59 05:59 05:59 Intake Total 4038 530 Output Total 1325 1675 Balance 2713 -1145 PT 26.5 SEC (12.0-15.0) H 11/20/17 04:30 INR 2.44 (0.83-1.16) H 11/20/17 04:30 SR/ST. No hypotension. Borderline O2 req. Desat during sleep. Improving fluid balance. Rapid rise in INR. Physical Exam - Physical Exam General Appearance: alert, no apparent distress Respiratory: lungs clear (grossly) Cardiac/Chest: regular rate, rhythm, tachycardia, other (Sternotomy CDI) Abdomen: non-tender, soft Skin: warm/dry Extremities: swelling (1+ RLE) ICD10 Worksheet Patient Problems: Problems Problem Status Onset Aneurysm of heart Acute Arterial embolism of right leg Acute Coronary stent patent Acute Left ventricular thrombus without NM Acute Right leg pain Acute
[2017-11-20] MEDS: POTASSIUM CL 20 MEQ TAB PO SCH ×2 (07:55→15:38)
[2017-11-20] MEDS: ASPIRIN 81 MG CHEWABLE TAB PO SCH (07:55)
[2017-11-20] MEDS: METOPROLOL TARTRATE 25 MG TAB PO SCH ×2 (07:56→21:49)
[2017-11-20] MEDS: PANTOPRAZOLE SODIUM 40 MG TAB PO SCH (07:57)
[2017-11-20] MEDS: FUROSEMIDE 40 MG TAB PO SCH ×2 (07:57→15:38)
[2017-11-20] MEDS: SENNOSIDES/DOCUSATE SODIUM TAB PO SCH ×2 (07:57→21:49)
[2017-11-20] MEDS: ATORVASTATIN CALCIUM 40 MG TAB PO SCH (09:43)
--- NOTE | 2017-11-20 11:20 | SOAPPROG ---
SOAP Progress Note Assessment/Plan: Assessment: doing well. no new issues. ambulating better. calf pain better. vss. pop pulse 2+. foot warm. calf swelling markedly better. CALVIN applied. contin anticoag/supportive care. f/u 2-3 weeks. call with further questions good night. pain better. walked in room. better right calf ROM. no new foot concerns. up in chair. comfortable. appropriate right calf swelling. compartments soft. tenderness less. foot pink and warm. better ROM. planning for ongoing Coumadin therapy. will reassess in office in 2-3 weeks. apply CALVIN hose for swelling symptomatic relief (reperfusion/microemboli). s/p ventriculotomy and thrombectomy. doing very well overall. c/o sternal pain only. right calf pain better. no other new complaints. afebrile. abd soft. right calf much less tender. compartments soft. foot pink and warm. pop pulse unchanged. recovering well. improved right foot overall - will further assess as he continues to recover from open heart surgery. he will be better than prior to intervention without further rest pain. anticoagulation to be determined by cards. any further leg intervention TBD at outpatient follow-up. care plan was reviewed with the patient's PCP Dr. Montanez yesterday via phone. patient appreciative and pleased with his progress. no new overnight complaint. calf pain unchanged. no other new complaints. foot pink and warm. calf soft with notable tenderness - unchanged. signals unchanged peroneal/PT/DP. palpable pop pulse. leg overall improved. pain remains secondary to microembolic changes with reperfusion. does not appear to have concern for compartment syndrome. for cardiac surgery today. will reasses leg postop. continue lifelong anticoagulation. good night. c/o calf pain only. foot sensate. no pain with passive ankle flexion/extension. no abd c/o. no left leg c/o. afebrile. abd soft. cath site flat. right calf with significant tenderness, compartments soft, mild hyperemia medial leg, no erythema. strong peroneal signal and biphasic anterior tibial signal. 2+ right pop pulse. foot significantly warmer and pinker than prior to admission. improved right leg outflow. calf pain secondary to microembolic thrombus from TPA - low suspicion for compartment syndrome at this time. recommend continued supportive care and anticoagulation to this end. for open ventricular thrombectomy tomorrow. further leg assessment to be completed after surgery. will need ongoing anticoagulation. findings reviewed with dr. darden. Care plan reviewed with Dr. Aguilar and Dr. Darden yesterday. (Unstable) ventricular thrombus noted on ECHO. Further discussion with patient disclosed a possible TIA episode earlier in the year - this was precipitated by a FARFAN followed by getting lost while driving - he does not note any localizing extremity deficits with that episode as supported by his significant other. he describes intermittent right hand numbness and clumsiness - this may be positional - he has not had any amaurosis symptoms. He has been on chronic anticoagulants and has experienced a significant right leg thromboembolus despite appropriate treatment. These findings were reviewed with Dr. Fisher regarding the role for surgical ventricular thrombectomy - given the possible unstable nature of his clot, it was recommended to discontinue TPA which was done with possible plans for cardiac intervention this week. He notes persistent calf pain. His foot is slightly less painful than yesterday. He denies new abdominal or back complaints. AVSS. comfortable. abd soft. left groin flat. 2+ right femoral and popliteal pulse. notable right calf tenderness - compartments soft. foot pink and cool. Plan to proceed with completion run off today. will maintain patient on full heparin anticoagulation. patient aware that future leg intervention may be necessary - he will hopefully at least be out of rest pain. his calf tenderness is likely secondary to microemboli from his lysis - this should improve over time. dr. fisher to consult when available. appreciate cards input. for left heart cath preop. Plan: 11/14/17 17:35 11/15/17 09:37 11/16/17 20:19 11/17/17 15:30 11/18/17 16:22 11/19/17 13:32 11/20/17 11:19 Objective: Vital Signs Temp Pulse Resp BP Pulse Ox 36.8 C 91 13 103/66 90 L 11/20/17 07:57 11/20/17 07:57 11/20/17 07:57 11/20/17 07:57 11/20/17 07:57 Laboratory Results 11/19/17 05:30 11/20/17 04:30 11/19/17 11/20/17 11/21/17 05:59 05:59 05:59 Intake Total 4038 530 350 Output Total 1325 1675 Balance 2713 -1145 350 PT 26.5 SEC (12.0-15.0) H 11/20/17 04:30 INR 2.44 (0.83-1.16) H 11/20/17 04:30 ICD10 Worksheet Patient Problems: Problems Problem Status Onset Aneurysm of heart Acute Arterial embolism of right leg Acute Coronary stent patent Acute Left ventricular thrombus without [place] Acute Right leg pain Acute - ICD10 Problem Qualifiers (1) Arterial embolism of right leg
--- NOTE | 2017-11-20 13:19 | ASMTCMCOM ---
CM Note CM Note Notes: CM met w/ pt for dispo planning. PT is recommending home w/ 24 hr supervision. OT is recommending home without any needs. Pt reports that he plans on staying w/ his brother for a couple of weeks. Pt does not feel like he needs any additional services at this time. CM available for changes. Plan: Independent Date Signed: 11/20/2017 01:18 PM Electronically Signed By:ANT Pak
--- NOTE | 2017-11-20 17:37 | ECHO ---
[email or web address] [place] [id number] Main: [phone] Fax: Transthoracic Echocardiogram Name: JEANNE DANIEL MR#: [id number] Study Date: 11/20/2017 Study Time: 03:04 PM Date of : 1970 Age: 47 year(s) Height: 177.8 cm (70 in.) Weight: 71.67 kg (158 lb.) BSA: 1.89 m2 Gender: Male Examination: Limited Echo Indication: S/P thrombectomy and aneurysmorrhaphy Image Quality: Contrast: Requested by: Jenise Avendaño BP: 104 mmHg/69 mmHg Heart Rate: Rhythm: Indication: S/P thrombectomy and aneurysmorrhaphy Procedure Staff Chief Information Security Officer: Shelton Dillon RDCS Reading Physician: Louie Mora MD Requesting Provider: Conclusions: No pericardial effusion. Apical akinesis with ejection fraction of 40%. Prior LV apical mass is now resolved. Consideration for definity for complete delineation of the apex. Measurements: Chambers Valvular Assessment AV/MV Valvular Assessment TV/PV Normal Normal Normal Name Value Range Name Value Range Name Value Range LVEF (BP): 47 % (>=55 %) Continued Measurements: Findings: Exam Comments: This is a limited echo to evaluate LV apex. There is no evidence of LV apical thrombus in multiple views and off axis views. The LV is estimated at 40% . (No Signature Object) Patient: EJANNE DANIEL Study Date: 11/20/2017 Page 1 of 1 03:04 PM [id number]
[2017-11-21] MEDS: ACETAMINOPHEN 325 MG TAB PO PRN (05:31)
--- NOTE | 2017-11-21 07:19 | SOAPPROG ---
SOAP Progress Note Assessment/Plan: Assessment: POD#4 LV thrombus evacuation via apical ventriculotomy, reduction of LV apex aneurysm, ligation left atrial appendage Unstable LV thrombus s/p evacuation via apical ventriculotomy - No neuro deficits - Antihrombotic prophylaxis with LMWH bridge until INR > 1.7. Duration anticoagulation indefinite - CTs and wires out Distal R SFA occlusion s/p TPA lysis with IR - RLE remains swollen but warm and with dopplerable pulses - Mgmt as per LV thrombus - Wt bearing as tolerated Acute blood loss anemia with thrombocytopenia - Stable without the need for transfusions - Platelet count appears to be rebounding h/o anterior wall PA/ISCM/LV apical aneurysm/patent mid LAD stent - aneurysmorrhaphy performed after thrombectomy - secondary prevention with ASA/statin/BB Presence of PPM/ICD - s/p PA. Lower rate 50 bpm. - AICD reactivated yest. - Heart failure regimen as allowed by BP Plan: Ok for discharge. Hold coumadin for 1 more day. Instructions re diet, meds, activity, f/u and wound care to be reviewed. 11/21/17 07:18 Subjective: Feels great. Improving ambulatory capacity. Eager for home. Objective: Vital Signs Temp Pulse Resp BP Pulse Ox 36.7 C 90 16 101/73 95 11/21/17 04:00 11/21/17 04:00 11/21/17 04:00 11/21/17 04:00 11/21/17 04:00 Laboratory Results 11/19/17 05:30 11/21/17 05:35 11/20/17 11/21/17 11/22/17 05:59 05:59 05:59 Intake Total 530 1450 Output Total 1675 1850 Balance -1145 -400 PT 26.5 SEC (12.0-15.0) H 11/20/17 04:30 INR 2.44 (0.83-1.16) H 11/20/17 04:30 SR/ST. Excellent diuresis without hypotension. Off O2. Below admit wt. INR therapeutic. Cont to climb a little despite held dose yest. Physical Exam - Physical Exam General Appearance: alert, no apparent distress Respiratory: lungs clear Cardiac/Chest: regular rate, rhythm, other (Sternotomy CDI) Abdomen: non-tender, soft Skin: warm/dry Extremities: swelling (1+ RLE. Foot pink and warm.) ICD10 Worksheet Patient Problems: Problems Problem Status Onset Aneurysm of heart Acute Arterial embolism of right leg Acute Coronary stent patent Acute Left ventricular thrombus without PA Acute Right leg pain Acute
[2017-11-21 08:14] LABS: INR 2.59 (0.83-1.16); PROTIME(PATIENT) 27.7 SEC (12.0-15.0)
[2017-11-21] MEDS: PANTOPRAZOLE SODIUM 40 MG TAB PO SCH (09:19)
[2017-11-21] MEDS: SENNOSIDES/DOCUSATE SODIUM TAB PO SCH (09:19)
[2017-11-21] MEDS: ATORVASTATIN CALCIUM 40 MG TAB PO SCH (09:19)
[2017-11-21] MEDS: ASPIRIN 81 MG CHEWABLE TAB PO SCH (09:20)
[2017-11-21] MEDS: METOPROLOL TARTRATE 25 MG TAB PO SCH (09:20)
[2017-11-21 09:22] VITALS: BP 113/70
--- NOTE | 2017-11-21 12:38 | PDDCSUM ---
Discharge Summary Discharge Summary: DATE OF ADMISSION: 11/13/17 DATE OF DISCHARGE: 11/21/17 DISPOSITION: Home, self-care PRINCIPAL ADMISSION DIAGNOSIS: Critical limb ischemia with occlusion of the distal right superficial femoral artery PRINCIPAL DISCHARGE DIAGNOSES: 1. 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 Unstable left ventricular apical thrombus 3. Widely patent left anterior descending coronary stent 4. Carotid atherosclerosis 5. Status post open extraction of LV thrombus 6. Status post plication of LV apical aneurysm 7. Status post prophylactic exclusion of the left atrial appendage 8. Acute expected blood loss anemia HISTORY OF PRESENT ILLNESS: 47 yo male with progressive RLE pain, swelling, discoloration and coolness x 5 months. Escalation in claudication to rest pain last 2 months. Seen by general surgery and discovered to have distal SFA occlusion. Admitted for abdominal aortogram and catheter directed thrombolytic therapy. PERTINENT PAST MEDICAL HISTORY: CAD s/p VT cardiac arrest, large AMI and PCI LAD in 2009. Ischemic cardiomyopathy (LVEF 25-35%) with apical aneurysm and longstanding LV thrombus. Chronically anticoagulated on Coumadin, switching to Xarelto in August 2017 for ease of monitoring. Primary prevention PPM/ICD in 2010 - no shocks since implant. Probable TIA (blurry vision and confusion) in Jun 2017. Possible RLE embolus 2015. Former smoker, quitting 3 mo ago. MEDICATIONS ON ADMISSION: Xarelto 20 mg daily, Lipitor 40 mg daily, Metoprolol tartrate 25 mg BID, Tramadol 50-100 mg q 8h prn leg pain, Pepcid 20 mg BID prn gastritis ALLERGIES/SENSITIVITIES: NKDA CONSULTANTS: General surgery (Felipe), Cardiology (Jeff), CV surgery (Phillip), Pulmonology/ critical care (Minor) PROCEDURES/IMAGIN/18 (Carson): Abdominal aortogram with bilateral lower extremity runoff. Access left common femoral artery. Findings: 30 cm segment occlusion of the distal right SFA, including the popliteal artery and tibioperoneal trunk. Partial distal reconstitution by collaterals. TPA lysis from the SFA to posterior tibial artery. 11/14 (Carson): TPA follow up: 40-50% clot dissolution with significant improvement in collateral flow. Unsuccessful popliteal artery angioplasty. 11/14 (Jeff): Transthoracic echocardiogram: Akinetic LV apex with 1.3 x 2.4 cm thrombus. LVEF 30-35%. 11/16 (Morgan): Left heart catheterization with selective coronary angiography. Access left common femoral artery. Findings: rt dominant coronary circulation, normal LM, LCX and RCA. Widely patent mid LAD stent. 11/16 Carotid US: mild plaquing bilateral bulbs. 11/17 (Phillip): Median sternotomy. Left apical ventriculotomy with evacuation of thrombus and reduction aneurysmorrhaphy. Prophylactic suture ligation of the left atrial appendage. 11/20 (Morgan): Transthoracic echocardiogram: No evidence residual LV thrombus. LVEF 40% ABBREVIATED HOSPITAL COURSE BY ACTIVE PROBLEM LIST: 1. LV thrombus with multiple embolic events suspected - Clot believed to be unstable and evacuated via apical ventriculotomy. Uneventful early postop course. Antithrombotic prophylaxis switched back to Coumadin, target INR 2-3, duration indefinite. LMWH bridge until INR > 1.7. Rapid rise in INR. Close monitoring in anticoagulation clinic recommended. 2. Distal R SFA occlusion with poor runoff - Partially responsive to TPA lysis. Distal pulses dopplerable. Significant reduction in pain. Significant improvement in ambulatory capacity. Antithrombotic prophylaxis as per LV thrombus. Collateral circulation recruitment with exercise therapy. Gen surgery to follow as outpt. 3. Acute expected blood loss anemia with thrombocytopenia - Stable. No transfusions required. Platelet count rebound noted. 4. Stable CAD with patent LAD stent and good lipid control - Secondary prevention with baby ASA, statin, and BB as allowed by BP. 5. ISCM with LVSD - Improved LV systolic fx post aneurysmorrhaphy. Diuresed to euvolemia. Insufficient BP for ACEI/ARB. 6. Presence of PPM/ICD - Intact function verified prior to discharge. DISCHARGE CLINICAL INFORMATION: Sternum grossly stable. Sternotomy CDI, sutured, +Dermabond. HR 90s. SBP 100s-110s. SpO2 91% on RA. Wt 1.7 kg below admission at 71.6 kilos. Hgb 10, HCT 29, Plt 126, Na 138, K 4.4, Cr 0.7 Coumadin flowsheet: Date INR mg 11/18 1.21 2 11/19 1.16 5 11/20 2.44 held 11/21 2.59 held DISCHARGE MEDICATIONS: As on admission with the following adjustments: 1. Stop Xarelto 2. Decrease metoprolol to 12.5 mg BID. NEW prescriptions: 1. Coumadin 2.5 mg daily beginning tomorrow 11/22, and then as directed by INR/ anticoagulation clinic. 2. Oxycodone 5 mg q 4h prn breakthrough pain. 3. OTC: ASA 81 mg daily. Hold for INR > 3. FOLLOW UP APPOINTMENTS: 1. CV surgery: with Dr Fisher at [facility] on 11/24 at 10:15 am. Office to confirm appointment time. 2. Cardiology: with Dr Aguilar at [facility] or Dr Mcnulty at [facility] within 4-6 weeks. Appointment to be established during surgical visit. 3. General Surgery: with Dr Wang at [facility] [phone] in 2 wks. FOLLOW UP TESTIN. INR at [facility] on 11/24 at 8:30am. LFTs if INR > 3.5. 2. CXR prior to surgical appointment.
[2017-11-21] MEDS: traMADol 50 MG TAB PO PRN (13:08)
== END 2017-11-21 13:10 | disposition home or self-care (01) | DRG 229 ==
LOC: FIMAGING 12:57 → F2N 15:32 → F2W 11-19 12:15
PROVIDERS: ADMIT Thoracic Surgery (Cardiothoracic Vascular Surgery); ATTEND Radiology Diagnostic Radiology
PROC: 3E05317 Introduction of Other Thrombolytic into Peripheral Artery, Percutaneous Approach (ICD-10-PCS; principal; 2017-11-13)
PROC: 047K3ZZ Dilation of Right Femoral Artery, Percutaneous Approach (ICD-10-PCS; 2017-11-14)
PROC: B2111ZZ Fluoroscopy of Multiple Coronary Arteries using Low Osmolar Contrast (ICD-10-PCS; 2017-11-16)
PROC: 4A023N7 Measurement of Cardiac Sampling and Pressure, Left Heart, Percutaneous Approach (ICD-10-PCS; 2017-11-16)
PROC: 02L70ZK Occlusion of Left Atrial Appendage, Open Approach (ICD-10-PCS; 2017-11-17 14:00)
PROC: 02CL0ZZ Extirpation of Matter from Left Ventricle, Open Approach (ICD-10-PCS; 2017-11-17 14:00)
PROC: 5A1221Z Performance of Cardiac Output, Continuous (ICD-10-PCS; 2017-11-17 14:00)
PROC: 02QC0ZZ Repair Left Heart, Open Approach (ICD-10-PCS; 2017-11-17 14:00)
PROC: B246ZZ4 Ultrasonography of Right and Left Heart, Transesophageal (ICD-10-PCS; 2017-11-20)
DX: I74.3 Embolism and thrombosis of arteries of the lower extremities (principal); I24.0 Acute coronary thrombosis not resulting in myocardial infarction; I25.3 Aneurysm of heart; D62 Acute posthemorrhagic anemia; I25.10 Atherosclerotic heart disease of native coronary artery without angina pectoris; I25.2 Old myocardial infarction; Z95.5 Presence of coronary angioplasty implant and graft; Z79.01 Long term (current) use of anticoagulants; Z95.810 Presence of automatic (implantable) cardiac defibrillator; Z98.1 Arthrodesis status; Z86.73 Personal history of transient ischemic attack (TIA), and cerebral infarction without residual deficits; F17.210 Nicotine dependence, cigarettes, uncomplicated; I65.29 Occlusion and stenosis of unspecified carotid artery
CPT/HCPCS: 82947-QW; 85520-90; 87340-90; 97116-GP; 97161-GP; 97165-GO; 97535-GO; C1725; C1757; C1768; C1769; C1892; C1894; G0472; J0153; J0282; J0690; J1170; J1265; J1644; J1650; J1815; J1885; J1940; J2001; J2150; J2250; J2260; J2270; J2310; J2370; J2405; J2550; J2704; J2720; J2930; J2997; J3010; J3475; J7060; P9041; Q9967

== ENCOUNTER → 2017-11-24 | Outpatient (CLI) | payer OTHER | LOC: FIMAGING 11:34 | PROVIDERS: ATTEND Thoracic Surgery (Cardiothoracic Vascular Surgery) | DX: Z86.79 Personal history of other diseases of the circulatory system (principal); J98.11 Atelectasis; J90 Pleural effusion, not elsewhere classified; Z95.5 Presence of coronary angioplasty implant and graft; Z95.0 Presence of cardiac pacemaker; Z98.890 Other specified postprocedural states ==

== ENCOUNTER 2018-01-04 11:10 | Inpatient (IN) | payer OTHER ==
[2018-01-04] MEDS ORDERED: ONDANSETRON 4 MG/2 ML VIAL IVP PRN (13:50)
[2018-01-04] MEDS ORDERED: HYDROmorphONE/DILAUDID 1 MG/ML INJ IVP PRN (13:50)
[2018-01-04] MEDS ORDERED: FAMOTIDINE 20 MG TAB PO PRN (13:58)
[2018-01-04] MEDS ORDERED: HEPARIN 10,000 UNIT/10 ML MDV (1,000 UNIT/ML) IVP PRN (13:59)
[2018-01-04] MEDS ORDERED: HEPARIN/DEXTROSE 500 ML IV SCH (14:00)
[2018-01-04] MEDS ORDERED: NS 1,000 ML IV SCH (14:00)
[2018-01-04] MEDS ORDERED: HEPARIN 10,000 UNIT/10 ML MDV (1,000 UNIT/ML) IVP ONE (14:03)
[2018-01-04] MEDS: HEPARIN/DEXTROSE 500 ML IV SCH (15:06)
[2018-01-04 15:08] LABS: PLATELET COUNT 292 10^3/uL (150-400)
[2018-01-04 15:24] LABS: INR 1.85 (0.83-1.16); PROTIME(PATIENT) 21.4 SEC (12.0-15.0)
[2018-01-04] MEDS: oxyCODONE IR 5 MG TAB PO PRN ×2 (16:07→22:26)
--- NOTE | 2018-01-04 16:40 | GHP ---
[f rep st] HISTORY AND PHYSICAL DATE OF ADMISSION: 01/04/2018 CHIEF COMPLAINT: Right lower extremity pain. HISTORY OF PRESENT ILLNESS: Mr. Betancourt is a pleasant 47-year-old gentleman with past medical history of coronary artery disease status post LAD stent in 2009, as well as chronic systolic heart failure s econdary to ischemic cardiomyopathy with an estimated ejection fraction at 25% to 35% with a recent h ospitalization here at [facility] where he was found to have an unstable left ventric ular thrombus. This was evacuated surgically. The patient also has a known chronic right superficia l femoral artery thrombosis. He presented to Dr. Wang's office early this morning with complaints of worsening right lower extremity pain over the prior 2-3 days. He states that his INR was checked tow [place] the latter end of last week and was noted to be subtherapeutic at 1.1. He reports that his INRs have been quite difficult to control with Coumadin over the prior years, oftentimes being supratherap eutic but also subtherapeutic. The patient had been managed on Xarelto for a time; however, this was stopped when he had his recent surgeries for evacuation of the left ventricular thrombus. I reviewe d the case with Dr. Wang today and the concern with doing thrombolysis was interruption or making the left ventricular thrombus unstable. So the tentative plan of action was to start heparin drip with a plan to transition him to Eliquis. I did talk with Dr. Aguilar as well, who will be consulting on the case as well. PAST MEDICAL HISTORY: 1. History TIA. 2. Coronary artery disease with a history of LAD stent placed in 2009, noted to be patent on recent imaging. 3. Chronic systolic heart failure secondary to ischemic cardiomyopathy with an estimated ejection fr action 25% to 35%, status post ICD placement in 2010. 4. Right superficial femoral artery thrombosis. 5. Recent left ventricular thrombus surgically evacuated but noted to recur on followup echocardiogr am. 6. Negative hypercoagulable workup. PAST SURGICAL HISTORY: 1. Left ventricular thrombus extraction. 2. Status post plication of left ventricular aneurysm. 3. ICD placed in 2010. 4. MEDICATIONS: 1. Coumadin 5 mg daily. 2. Metoprolol 12.5 mg twice a day. 3. Azithromycin 20 mg daily. 4. Pepcid 20 mg twice a day. 5. Aspirin 81 mg daily. ALLERGIES: No known drug allergies. FAMILY HISTORY: Dad from esophageal cancer. Mother of unknown causes. SOCIAL HISTORY: The patient is currently single. He did recently stop smoking approximately 3 month s ago with his recent surgery. CODE STATUS: Full code status. REVIEW OF SYSTEMS: CONSTITUTIONAL: No report of any recent fevers or chills. ENT: No complaints o f any recent upper respiratory illnesses. CARDIOVASCULAR: No complaints of chest pain, chest pressu re, or syncopal episodes. RESPIRATORY: No complaints of shortness of breath or productive cough. G I: No complaints of any nausea, vomiting, diarrhea or constipation. : No report of difficulty wi th urination. NEUROLOGIC: No complaints of any headaches or focal weakness. HEMATOLOGIC: No histo ry of any recent bleeding issues. PSYCHIATRIC: No history of anxiety or depression. ENDOCRINE: No history of diabetes or thyroid abnormalities. SKIN: No new skin rashes noted. MUSCULOSKELETAL: N o focal joint pains. PHYSICAL EXAM: VITAL SIGNS: Full vitals currently pending. APPEARANCE: Generally he appears comfo rtable. He is awake, alert, conversant, able to provide a good history. No acute distress. HEENT: Extraocular movements appear intact. No scleral icterus is noted. NECK: No thyroid enlargement noted. No carotid bruit appreciated. CHEST: Clear to auscultation wi th normal respiratory effort. HEART: Regular, no murmurs appreciated. Generally soft heart sounds. ABDOMEN: Soft, nontender, nondistended. Normal bowel sounds. : No Roa catheter in place. E XTREMITIES: He has good proximal femoral artery pulses but distal right lower extremity pulses dimin ished, cool to touch as compared to the left lower extremity as well. NEUROLOGIC: Cranial nerves 2- 12 appear intact with 5/5 strength in the extremities. LABORATORY DATA: Basic metabolic currently pending. White blood cell count 9, hemoglobin 15, platelets 292. PTT 36. INR 1.81. ASSESSMENT AND PLAN: 1. Right superficial femoral artery thrombosis, suspected acute on chronic from subtherapeutic INR o n Coumadin therapy. I reviewed the case with Dr. Nahid Wang, and no additional imaging felt indicat ed at this point in time. But it is recommended that we go ahead and start a heparin drip with the a nticipation of transitioning to Eliquis for future anticoagulation in light of lability of his INRs o n Coumadin therapy. TPA was discussed but felt to be too unstable in light of recurrent left ventric ular thrombosis noted. Case was also reviewed with Dr. Aguilar, who will be consulting as well. 2. History of transischemic attack. This is felt secondary to the left ventricular thrombosis, inde finite anticoagulation. The patient is also on aspirin and statin therapy. 3. Coronary artery disease. The patient has a history of LAD stent placed in 2009. This was report edly patent on recent imaging. Currently asymptomatic. Continue with current aspirin and statin the rapy. 4. Chronic systolic heart failure secondary to ischemic cardiomyopathy with ejection fraction estima ab at 25% to 35%. Continue medical management as able. 5. Hypercoagulable workup. The patient has had a negative hypercoagulable workup with Dr. Echeverria already performed. It is felt that his thromboses have occurred related to his diminished ejection f raction. 6. Deep venous thrombosis prophylaxis. The patient is anticoagulated. DISPOSITION: I will admit him under observation status. Patient is full code status. /[id number]/MODL
--- NOTE | 2018-01-04 18:31 | GCON ---
[f rep st] CONSULTATION CARDIOLOGY CONSULTATION DATE OF CONSULTATION: 01/04/2018 REFERRING PHYSICIAN: Nahid Wang MD REASON FOR CONSULTATION: 1. Left ventricular apical thrombus. 2. Coronary artery disease. 3. Peripheral vascular disease. HISTORY OF PRESENT ILLNESS: The patient is a pleasant 47-year-old gentleman known to my practice. I initially met the patient in October 2017 when he presented with right critical limb ischemia symptoms o f the right lower extremity. Echocardiogram done during that hospitalization demonstrated a 1.3 x 2. 4 cm, mobile apical thrombus with LV apical kinesis and EF of 30% to 35%. In the setting of recurren t embolic symptoms, including recurrent leg pain, as well as TIA symptoms in June of 2017, the dec ision was made to pursue a surgical thrombectomy. He underwent left ventricular thrombus evacuation coupled with apical ventriculotomy and reduction of apical aneurysm, as well as left atrial appendage ligation with Dr. Fisher on November 17, 2017. He tolerated the procedure well. He had no postoperative complications. His immediate postoperative echocardiogram demonstrated resolution of apical thrombus . At the time of his discharge, he was restarted on Coumadin. He had been on Coumadin since 2009 at th e time of the initial acute myocardial infarction with evidence of apical thrombus. Of note, he had been on Xarelto starting in August of 2017. I think his thrombus was due to LV apical aneurysm and re duced EF. Subsequent followup echocardiogram performed December 24, 2017, demonstrates new appearance of mural thro mbus in the left ventricular apex. This is new compared to previous study immediately postoperativel y. The patient states he has been compliant with Coumadin and with regular INR checks. He states that h is INR had been therapeutic up until his most recent INR value, which was 1.1. He denies any modific ation in his diet, and he admits to compliance with medical therapy with Coumadin. He did undergo a preoperative left heart catheterization prior to his surgery with ronald Rivero rating a patent stent to the LAD and no significant flow-limiting coronary artery disease. He presented today from Dr. Wang's office secondary to new onset of acute right lower extremity pain. He has no complaints of numbness, weakness, or paresthesias. No complaints of chest pain, chest pres sure, shortness of breath, or dyspnea. No complaints of PND, orthopnea, or lower extremity edema. N o neurologic symptoms, including visual disturbance, slurred speech. PAST MEDICAL HISTORY: 1. Notable for coronary artery disease with acute myocardial infarction in 2009 in the setting of ou [id number] cardiac arrest, requiring CPR. 2. Ischemic cardiomyopathy with LVEF of 30% to 35%. 3. Primary prevention ICD implantation with a [employer] ICD in 2010. 4. History of L5-S1 laminectomy and spinal fusion. MEDICATIONS: Medications on admission include Coumadin per Coumadin protocol, aspirin 81 mg daily, a torvastatin 20 mg daily, Pepcid 20 mg p.o. b.i.d., metoprolol tartrate 25 mg p.o. b.i.d., and Tylenol p.r.n. ALLERGIES: None. SOCIAL HISTORY: He is not . 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 He is a nonsmo ker. PHYSICAL EXAMINATION: VITAL SIGNS: Blood pressure of 125/82, heart rate of 76, oxygen saturation if 93% on room air, temperature 36.4. GENERAL: He is awake, alert, oriented, appropriate, in no appar ent distress. No evidence of JVP or carotid bruits. LUNGS: Clear to auscultation bilaterally. CAR DIAC: S1, S2. Regular rate and rhythm. SUMMARY: The patient is a pleasant 47-year-old gentleman with worsening right lower extremity sympto ms in the setting of known right lower extremity thrombosis from October 2017, followed by Dr. Justice Wang w ith return of left LV apical thrombus with recent subtherapeutic INR. He did undergo a hypercoagulab le workup with Dr. Echeverria of Hematology. Workup was unremarkable. PLAN/RECOMMENDATIONS: 1. Limited echocardiogram to reassess left ventricular thrombus. 2. Continue heparinization. 3. Would ultimately recommend changing anticoagulation to Eliquis in the setting of subtherapeutic I NR and return of LV apical thrombus. 4. Will discuss with Dr. Wang. 5. Recommend evaluation by Dr. Fisher from CT surgery to consider repeat thrombectomy and long-term a nticoagulation with Eliquis. 6. We will continue to follow along with his care. /[id number]/MODL
[2018-01-04] MEDS: METOPROLOL TARTRATE 25 MG TAB PO SCH (21:18)
[2018-01-05 03:58] LABS: PLATELET COUNT 277 10^3/uL (150-400)
[2018-01-05] MEDS: oxyCODONE IR 5 MG TAB PO PRN ×3 (07:33→20:39)
[2018-01-05] MEDS: ATORVASTATIN CALCIUM 20 MG TAB PO SCH (07:55)
[2018-01-05] MEDS: METOPROLOL TARTRATE 25 MG TAB PO SCH ×2 (07:55→20:32)
[2018-01-05] MEDS: ASPIRIN 81 MG CHEWABLE TAB PO SCH (07:55)
[2018-01-05] MEDS ORDERED: ATORVASTATIN CALCIUM 40 MG TAB PO SCH (09:00)
[2018-01-05] MEDS: HEPARIN/DEXTROSE 500 ML IV SCH (09:41)
--- NOTE | 2018-01-05 13:43 | HOSPPROG ---
Hospitalist Progress Note Assessment/Plan: 47 yo M with hx of CAD, PVD and critical limb ischemia, LV thrombus presenting with right superficial femoral artery thrombosis as well as recurrent LV thrombus # right superficial femoral artery thrombus: acute on chronic, followed by Dr. Wang. Likely occurred due to being subtherapeutic on coumadin. Started on heparin gtt. Continues to have pain but improved since arrival. # LV thrombus: cardiology consulted, reviewed Dr. Aguilar's note--plan for limited echo and CT surg consult, both of which are pending at this time, on heparin gtt as above # CAD: with hx of LAD stent, continued on asa, statin, bb # iCM, systolic: chronic, EF of 25-35%, appears well compensated currently, ICD in place # IP status, will require > 48 hours stay for eval/mgmt of above Patient new to my care. Old records reviewed summarized as above. Subjective: no significant overnight events, patient currently having continued pain in his right leg but improved from admission Objective: Vital Signs Temp Pulse Resp BP Pulse Ox 36.7 C 83 16 116/80 95 01/05/18 11:09 01/05/18 11:09 01/05/18 11:09 01/05/18 11:09 01/05/18 11:09 Laboratory Results 01/05/18 03:12 01/05/18 03:12 01/04/18 01/05/18 01/06/18 05:59 05:59 05:59 Intake Total 688 Balance 688 PT 21.4 SEC (12.0-15.0) H 01/04/18 14:45 INR 1.85 (0.83-1.16) H 01/04/18 14:45 awake alert anicteric op clear mmm rrr distant cta b soft nt nd no cce warm dry well perfused oriented appropriate ICD10 Worksheet Patient Problems: Problems Problem Status Onset Coronary stent patent Acute Right leg pain Acute Aneurysm of heart Acute Left ventricular thrombus without [place] Acute Arterial embolism of right leg Acute
--- NOTE | 2018-01-05 14:21 | PDMN ---
Medical Necessity Medical necessity: MCG: GRG Vascular Disease: recurrent R femoral artery thrombus acute on chronic req further inpt management, IV heparin, PT with HX of CAD, PVD and critical limb ischemia, - pt continuing to have pain in R leg- ongoing med nec tx necessary status changed to INPT 01/05/18 @ 14:03
--- NOTE | 2018-01-05 16:36 | ASMTCMCOM ---
CM Note CM Note Notes: Chart reviewed. R fermoral arterial thrombus.Last discharge in October was without services. CM to follow for needs. TBD at this time. Plan: TBD Date Signed: 01/05/2018 04:35 PM Electronically Signed By:Sanna Conti RN
--- NOTE | 2018-01-05 17:03 | PDCARPN ---
Cardiology Progress Note Assessment/Plan: Assessment: 1. LV apical thrombus 2. Ischemic CM 3. Right Lower Extremity ischemia 4. CAD Plan: -Obtain Limited echo to re eval apical thrombus -In the absence of new thromboembolic events, would not return to OR for thrombectomy -Recommend anticoagulation with heparin during hospital stay and then use Lovenox at out patient for 2 weeks -Ultimately Eliquis 5 mg bid for anticoagulation due to sub therapeutic INR resulting in return of symptoms in RLE -Right lower extremity management per Dr Wang 01/05/18 17:03 Subjective: 47 year old gentleman with hx of anteior WI in 2009 wiht apical hypokinesis and reduced EF with LV apical thrombus with embolic event to RLE who underwent thrombectomy and resection of apical aneurysm and INOCENCIO ligation in October [address] Fisher. Recent episode of sub therpuetic INR at 1.1 with return of ischemic Leg pain and evidence of return of apical thrombus on echo. No symptoms or exam finding to suggest new thromboembolic events. He remains on heparin gtt. RLE continues to be painful at rest. Reviewed/Discussed With: hospitalist, multidisciplinary team Objective: Vital Signs (8 Hrs) Temp Pulse Resp BP Pulse Ox 01/05/18 15:43 36.8 C 73 95 H 118/68 01/05/18 11:09 36.7 C 83 16 116/80 95 Intake/Output (24 Hrs) 01/04/18 01/05/18 01/06/18 05:59 05:59 05:59 Intake Total 688 687 Balance 688 687 Intake: Oral (ml) 400 IV Intake (ml) 288 IV Infused (ml) 687 Heparin/Dextrose 500 ml @ 687 Per Protocol IV CONT NAVIN Rx#:[id number] Other: Weight 67.767 kg Intake Quantity Yes Sufficient Number of Voids Toilet 1 Result Diagrams: 01/05/18 03:12 01/05/18 03:12 ICD10 Worksheet Patient Problems: Problems Problem Status Onset Aneurysm of heart Acute Arterial embolism of right leg Acute Coronary stent patent Acute Left ventricular thrombus without [place] Acute Right leg pain Acute
--- NOTE | 2018-01-05 17:21 | SOAPPROG ---
SOAP Progress Note Assessment/Plan: Assessment:no new overnight events. calf pain unchanged. no stroke or TIA concerns. comfortable. 2+ fem pulse. 0 pop/DP/PT. foot pink, cool, sensate, normal motor function. difficult situation - fresh, unstable ventricular thrombus s/p thrombectomy in the face of ventricular hypokinesis. TPA not felt to be safe for his recurrent right distal SFA/pop occlusion given the above findings. open thrombectomy may commit him to an urgent fem - distal bypass. care plan reviewed with cards on multiple occasions and patient. will plan to transition to LMWH to be continued for the next couple of weeks with ultimate transition to eliquis. will revisit possible TPA of his right leg at that time. director long term care leg management will possibly require a distal bypass once anticoag optimized. patient not currently in threat of limb loss rather claudication as he was prior to his last intervention. patient in agreement. discussed with nursing staff who will help with LMWH teaching. Plan: 01/05/18 17:16 Objective: Vital Signs Temp Pulse Resp BP Pulse Ox 36.8 C 73 95 H 118/68 95 01/05/18 15:43 01/05/18 15:43 01/05/18 15:43 01/05/18 15:43 01/05/18 11:09 Laboratory Results 01/05/18 03:12 01/05/18 03:12 01/04/18 01/05/18 01/06/18 05:59 05:59 05:59 Intake Total 688 687 Balance 688 687 PT 21.4 SEC (12.0-15.0) H 01/04/18 14:45 INR 1.85 (0.83-1.16) H 01/04/18 14:45 ICD10 Worksheet Patient Problems: Problems Problem Status Onset Aneurysm of heart Acute Arterial embolism of right leg Acute Coronary stent patent Acute Left ventricular thrombus without [place] Acute Right leg pain Acute
[2018-01-05] MEDS: ENOXAPARIN 80 MG/0.8 ML SYR SC SCH (17:40)
[2018-01-06] MEDS: oxyCODONE IR 5 MG TAB PO PRN ×2 (03:25→09:45)
[2018-01-06] MEDS: ENOXAPARIN 80 MG/0.8 ML SYR SC SCH (06:29)
[2018-01-06] MEDS ORDERED: PERFLUTREN LIPID MICROSPHERES 1.1 MG/ML VIAL IV ONE (07:56)
[2018-01-06] MEDS: METOPROLOL TARTRATE 25 MG TAB PO SCH (08:23)
[2018-01-06] MEDS: ATORVASTATIN CALCIUM 20 MG TAB PO SCH (08:23)
[2018-01-06] MEDS: ASPIRIN 81 MG CHEWABLE TAB PO SCH (08:23)
--- NOTE | 2018-01-06 10:21 | ECHO ---
[email or web address] [id number] Main: [phone] Fax: Transthoracic Echocardiogram Name: JEANNE DANIEL MR#: [id number] Study Date: 01/06/2018 Study Time: 07:46 AM Date of : 1970 Age: 47 year(s) Height: 180.3 cm (71 in.) Weight: 67.59 kg (149 lb.) BSA: 1.86 m2 Gender: Male Examination: Limited Echo with Definity Indication: Eval LV thrombus Image Quality: Adequate Contrast: Requested by: Lamin Aguilar BP: 111 mmHg/74 mmHg Heart Rate: Rhythm: Indication: Eval LV thrombus Procedure Staff Dishwasher Busser: Tanisha Vinson RDCS Reading Physician: Lamin Aguilar MD Requesting Provider: Measurements: Chambers Valvular Assessment AV/MV Valvular Assessment TV/PV Normal Normal Normal Name Value Range Name Value Range Name Value Range EF Range: 35-40 % Continued Measurements: Findings: Left Ventricle: Normal size left ventricle. The ejection fraction is estimated to be 35-40 %. Regional wall motion abnormality noted. Reduced LV function. There appears to be evidence of two areas of apical thrombus. One thrombus appears more mobile and measures 1.6 cm. There also appears to be more mural thrombus towards apical lateral. (No Signature Object) Patient: JEANNE DANIEL Study Date: 01/06/2018 Page 1 of 1 07:46 AM [id number]
[2018-01-06 11:35] VITALS: BP 116/80
--- NOTE | 2018-01-06 12:12 | SOAPPROG ---
SOAP Progress Note Assessment/Plan: Assessment:transitioned to LMWH last evening. no other new complaints other than calf pain - foot slightly warmer to his exam. no cp or sob. no embolic concerns. avss. comfortable, ECHO in progress. foot pain, warmer. calf with mild tenderness. no ischemic/dusky areas. 2+ fem pulse. absent pop/DP/PT. recurrent ventricular thrombus with right leg distal SFA/pop re-occlusion ( thrombotic rather than embolic this time). high risk situation with unstable cardiac thrombus - now fully anticoagulated with LMWH - will continue with future transition to eliquis as a next line agent. future right leg intervention TBD pending stabilization of his high risk cardiac thrombus. he is aware of the CVA risk. he is aware of the possible role for re-thrombectomy. no new overnight events. calf pain unchanged. no stroke or TIA concerns. comfortable. 2+ fem pulse. 0 pop/DP/PT. foot pink, cool, sensate, normal motor function. difficult situation - fresh, unstable ventricular thrombus s/p thrombectomy in the face of ventricular hypokinesis. TPA not felt to be safe for his recurrent right distal SFA/pop occlusion given the above findings. open thrombectomy may commit him to an urgent fem - distal bypass. care plan reviewed with cards on multiple occasions and patient. will plan to transition to LMWH to be continued for the next couple of weeks with ultimate transition to eliquis. will revisit possible TPA of his right leg at that time. meterman leg management will possibly require a distal bypass once anticoag optimized. patient not currently in threat of limb loss rather claudication as he was prior to his last intervention. patient in agreement. discussed with nursing staff who will help with LMWH teaching. Plan: 01/05/18 17:16 01/06/18 12:07 Objective: Vital Signs Temp Pulse Resp BP Pulse Ox 36.8 C 84 16 116/80 95 01/06/18 11:33 01/06/18 11:33 01/06/18 11:33 01/06/18 11:33 01/06/18 11:33 Laboratory Results 01/06/18 03:15 01/05/18 03:12 01/05/18 01/06/18 01/07/18 05:59 05:59 05:59 Intake Total 688 1437 Balance 688 1437 PT 21.4 SEC (12.0-15.0) H 01/04/18 14:45 INR 1.85 (0.83-1.16) H 01/04/18 14:45 ICD10 Worksheet Patient Problems: Problems Problem Status Onset Aneurysm of heart Acute Arterial embolism of right leg Acute Coronary stent patent Acute Left ventricular thrombus without [place] Acute Right leg pain Acute
--- NOTE | 2018-01-06 13:05 | PDDCSUM ---
Discharge Summary Discharge Summary: Dates of service 01/04-01/06/18 Consultations: general surgery, cardiology Procedures performed: echo Hospital course by problem: 47 yo M with hx of CAD, PVD and critical limb ischemia, LV thrombus presenting with right superficial femoral artery thrombosis as well as recurrent LV thrombus # right superficial femoral artery thrombus: acute on chronic, followed by Dr. Wang. Likely occurred due to being subtherapeutic on coumadin. Started on heparin gtt and now transitioned to lovenox with a plan to continue for at least 2 weeks at which time he will likely be transitioned to eliquis. Continues to have pain and it has increased some overnight --will dc on oxycodone prn. # LV thrombus: cardiology consulted, repeat echo showing 2 areas of thrombus-- one mural thrombus and one mobile appearing thrombus, again in setting of subtherapeutic on warfarin. Hope is that continued therapeutic AC will allow clots to dissolve without surgical intervention. Will be following up for repeat echo and ongoing AC in the next 2 weeks. He has had hypercoag w/ performed which was negative. # CAD: with hx of LAD stent, continued on asa, statin, bb # iCM, systolic: chronic, EF of 25-35%, appears well compensated currently, ICD in place DC home in fair condition Care plan reviewed with cardiology and general surgery Cautioned regarding signs of further embolic events Items for follow up: --ongoing anticoagulation--likely transition to eliquis in 2 weeks --ongoing management of right lower extremity ischemia >35 min spent in dc of patient more than half in coordination of care
--- NOTE | 2018-01-06 13:08 | PDCARPN ---
Cardiology Progress Note Assessment/Plan: Assessment: 1. LV apical thrombus 2. Ischemic CM 3. Right Lower Extremity ischemia 4. CAD Plan: -In the absence of new thromboembolic events, would not return to OR for thrombectomy -Recommend anticoagulation with heparin during hospital stay and then use Lovenox at out patient for 2 weeks -Ultimately Eliquis 5 mg bid for anticoagulation due to sub therapeutic INR resulting in return of symptoms in RLE -Right lower extremity management per Dr Wang 01/05/18 17:03 01/06/18 13:08 Subjective: Mr. Betancourt remains stable. Echo with definity demonstrates mural thrombus as well as 1.6 cm mobile apical thrombus. No new thromboembolic events. No neurologic symptoms. Transitions to full anticoagulation with Lovenox yesterday. Will ultimately transition to Eliquis secondary to recent hx of sub therapeutic INR of 1.1 while on coumadin. Leg remains painful and unchanged. Reviewed/Discussed With: hospitalist, multidisciplinary team Objective: Vital Signs (8 Hrs) Temp Pulse Resp BP Pulse Ox 01/06/18 11:33 36.8 C 84 16 116/80 95 01/06/18 07:27 36.7 C 74 16 111/74 93 Intake/Output (24 Hrs) 01/05/18 01/06/18 01/07/18 05:59 05:59 05:59 Intake Total 688 1437 Balance 688 1437 Intake: Oral (ml) 400 750 IV Intake (ml) 288 IV Infused (ml) 687 Heparin/Dextrose 500 ml @ 687 Per Protocol IV CONT NAVIN Rx#:[id number] Other: Weight 67.767 kg Intake Quantity Yes Sufficient Number of Voids Toilet 1 2 Result Diagrams: 01/06/18 03:15 01/05/18 03:12 ICD10 Worksheet Patient Problems: Problems Problem Status Onset Aneurysm of heart Acute Arterial embolism of right leg Acute Coronary stent patent Acute Left ventricular thrombus without [place] Acute Right leg pain Acute
--- NOTE | 2018-01-06 13:33 | ASMTDCNOTE ---
Case Management Discharge Discharge Order Complete? Answers: Yes Patient to Obtain Answers: Independently Medications Transportation Arranged Answers: Family/Friends EMTALA Complete Answers: No Case Management Transport Answers: No Form Complete Faxed Final Orders Answers: No Agency/Facility Transfer Answers: No Report Printed & Faxed to Receiving Agency Family Notified Answers: No Discharge Comments Notes: Pts case discussed in morning rounds and w/ [facility]. Pt is being discharged today. Pt will not have any d/c needs. CM available for changes. Plan: Independent Date Signed: 01/06/2018 01:32 PM Electronically Signed By:ANT Pak
--- NOTE | 2018-01-06 13:34 | ASMTLACE ---
LACE Length of stay for Answers: 2 days current admission Acuity / Level of Answers: Yes Care: Did the patient have an inpatient admission? Comorbidities - select Answers: Cerebrovascular disease all that apply (CVA, TIA, aneurysms, vasc ular dementia) Congestive heart failure Coronary Artery Disease # of Emergency department Answers: 0 visits in the last 6 months Score: 10 Date Signed: 01/06/2018 01:33 PM Electronically Signed By:ANT Pak
== END 2018-01-06 13:58 | disposition home or self-care (01) | DRG 300 ==
LOC: INTOOBSV 12:47 → F2W 12:47 → OBSVTOIN 01-05 14:03
PROVIDERS: ADMIT Internal Medicine; ATTEND Internal Medicine
DX: I74.3 Embolism and thrombosis of arteries of the lower extremities (principal); I24.0 Acute coronary thrombosis not resulting in myocardial infarction; R79.1 Abnormal coagulation profile; I25.10 Atherosclerotic heart disease of native coronary artery without angina pectoris; I50.22 Chronic systolic (congestive) heart failure; Z86.73 Personal history of transient ischemic attack (TIA), and cerebral infarction without residual deficits; Z86.718 Personal history of other venous thrombosis and embolism; I25.5 Ischemic cardiomyopathy; I25.2 Old myocardial infarction; Z95.5 Presence of coronary angioplasty implant and graft; Z79.01 Long term (current) use of anticoagulants; Z95.810 Presence of automatic (implantable) cardiac defibrillator
CPT/HCPCS: 85520-90; C8924; G0378; J1170; J1644; J1650; Q9957

== ENCOUNTER → 2018-02-25 | Outpatient (CLI) | payer OTHER ==
[~2018-02-25] MED LIST: IOPAMIDOL (ISOVUE 370) 100 ML BTL IV ONE
== END ==
LOC: CIMAGING 14:24
PROVIDERS: ATTEND Internal Medicine Cardiovascular Disease
DX: G93.89 Other specified disorders of brain (principal); I65.01 Occlusion and stenosis of right vertebral artery; I25.2 Old myocardial infarction
CPT/HCPCS: 70470-PO; Q9967

== ENCOUNTER 2018-04-07 07:16 | Day surgery (SDC) | payer OTHER ==
[2018-04-07] MEDS ORDERED: FLUMAZENIL 0.5 MG/5 ML MDV IVP ONE (07:31)
[2018-04-07] MEDS ORDERED: fentaNYL 100 MCG/2 ML INJ ONE ×2 (07:31→09:50)
[2018-04-07] MEDS ORDERED: NALOXONE HCL 0.4 MG/ML INJ ONE (07:31)
[2018-04-07] MEDS ORDERED: MIDAZOLAM 2 MG/2 ML VIAL ONE ×2 (07:31→09:50)
[2018-04-07] MEDS ORDERED: MEPERIDINE 25 MG/ML SYR IVP PRN (07:48)
[2018-04-07] MEDS ORDERED: fentaNYL 100 MCG/2 ML INJ IVP PRN (07:48)
[2018-04-07] MEDS ORDERED: PROTAMINE SULFATE 50 MG/5 ML VIAL IVP PRN (07:48)
[2018-04-07] MEDS ORDERED: ALTEPLASE 2 MG VIAL IVP PRN (07:48)
[2018-04-07] MEDS ORDERED: HEPARIN 10,000 UNIT/10 ML MDV (1,000 UNIT/ML) IVP PRN (07:48)
[2018-04-07] MEDS ORDERED: NALOXONE HCL 0.4 MG/ML INJ IVP PRN (07:48)
[2018-04-07] MEDS ORDERED: FLUMAZENIL 0.5 MG/5 ML MDV IVP PRN (07:48)
[2018-04-07] MEDS ORDERED: GLUCAGON HCL 1 MG VIAL IVP PRN (07:48)
[2018-04-07] MEDS ORDERED: MIDAZOLAM 2 MG/2 ML VIAL IVP PRN (07:48)
[2018-04-07] MEDS ORDERED: NS 1,000 ML IV SCH (08:00)
[2018-04-07 08:18] VITALS: BP 123/91
[2018-04-07] MEDS ORDERED: LIDOCAINE 1% 300 MG/30 ML SDV ONE (08:33)
[2018-04-07] MEDS ORDERED: IOPAMIDOL (ISOVUE-300) 100 ML BTL ONE (08:33)
--- NOTE | 2018-04-07 08:59 | PDRADPRE ---
Radiology History & Physical Indication for procedure: other (Chronic vascular occlusion right SFA; Diagnostic angiogram for surgical planning bypass) Home medications: Atorvastatin Calcium [Lipitor 40 mg (*)] 20 mg PO DAILY 11/13/17 [Last Taken 03/16] Famotidine [Pepcid 20 MG (*)] 20 mg PO BID PRN 11/13/17 [Last Taken 01/02/18] Albuterol [Proventil Inhaler HFA (*)] 1 - 2 puffs IH Q4H PRN 01/04/18 [Last Taken Unknown] Eliquis 5 mg PO BID 04/01/18 [Last Taken Unknown] Allergies/Adverse Reactions: adhesive tape Allergy (Verified 04/01/18 14:47) Rash Mental status: A&Ox3 Heart exam: regular rate and rhythm Lungs exam: clear to auscultation Mallampati Score: Class 1
[2018-04-07] MEDS ORDERED: OXYCODONE/APAP 5/325 TAB PO PRN (10:10)
[2018-04-07] MEDS ORDERED: ONDANSETRON 4 MG/2 ML VIAL IVP PRN (10:10)
--- NOTE | 2018-04-07 10:13 | PDRADPN ---
Radiology Procedure Note Date of Procedure: 04/07/18 Radiologist: Doe Padilla Anesthesia: IV Sedation Pre-op Diagnosis: PAD Post-op Diagnosis: PAD Indication: RLE claudication Procedure: Pelvic/RLE angiogram Finding(s): [employer] right SFA/Pop with single anterior tibial artery runoff to ankle Inf/Abcess present in the surg proc area at time of surgery?: No
== END 2018-04-07 13:32 | disposition home or self-care (01) ==
LOC: FIMAGING 07:16
PROVIDERS: ATTEND Surgery
PROC: 04HL33Z Insertion of Infusion Device into Left Femoral Artery, Percutaneous Approach (ICD-10-PCS; principal; 2018-04-07)
DX: I70.92 Chronic total occlusion of artery of the extremities (principal)
CPT/HCPCS: 36246; 75630; 76937; 99152; C1769; J1644; J2250; J2310; J3010; Q9967

== ENCOUNTER 2018-05-25 11:33 | Inpatient (IN) | payer OTHER ==
[2018-05-25] MEDS ORDERED: LR 1,000 ML IV ONE (11:45)
[2018-05-25] MEDS ORDERED: BUPIVACAINE 0.5% 30 ML SDV ONE (12:38)
--- NOTE | 2018-05-25 13:26 | PDANEPAE ---
ANE Past Medical History - Cardiovascular History Hx Hypertension: Yes Hx Arrhythmias: Yes Hx Chest Pain: Yes Hx Coronary Artery / Peripheral Vascular Disease: Yes Hx CHF / Valvular Disease: No Hx Palpitations: No Cardiovascular History Comment: htn. blood clotting tendency. Clot removal from LV with Phillip 10/2017. Clot to legs. icd placed 11/14/10. [place] in 2009 stent placed at that time - Pulmonary History Hx COPD: No Hx Asthma/Reactive Airway Disease: Yes Hx Recent Upper Respiratory Infection: No Hx Oxygen in Use at Home: No Hx Sleep Apnea: No Sleep Apnea Screening Result - Last Documented: Negative Pulmonary History Comment: Mild Asthma - Neurologic History Hx Cerebrovascular Accident: Yes Hx Seizures: No Hx Dementia: No Neurologic History Comment: stroke in Jul 2017. No residual problems. - Endocrine History Hx Diabetes: No Hypothyroid: No - Renal History Hx Renal Disorders: No - Liver History Hx Hepatic Disorders: No - Neurological & Psychiatric Hx Hx Neurological and Psychiatric Disorders: No - Cancer History Hx Cancer: No - Congenital Disorder History Hx Congenital Disorders: No - GI History Hx Gastrointestinal Disorders: Yes Gastrointestinal History Comment: GERD occasional well controlled - Other Health History Other Health History: wears glasses - Chronic Pain History Chronic Pain: Yes (right leg) - Surgical History Prior Surgeries: 04/07/18 rle/ pelvic angiogram at [facility]. 11/19/17 removal of LV clot with Phillip. [place] Teeth extraction;. B Eye RK Sx;. BACK SURGERIES x 2; . ME STENT X 1;. ICD placement 2010;. TPA for R Leg Oct, 2017;. Open Heart in Oct, 2017 for ventricular clots; ANE Review of Systems Review of Systems: - Exercise capacity METS (RN): 3 METS - Pacemaker Pacemaker Type: Permanent Pacer/Defib Pacemaker Senior Examiner: [employer] Pacemaker Model: 2231-40Q Pacemaker Mode: DDD Pacemaker Set Rate: 50 Date Pacemaker Last Checked: 05/04/18 ANE Patient History - Allergies Allergies/Adverse Reactions: adhesive tape Allergy (Verified 05/17/18 17:00) rash and blisters - Home Medications Home Medications: Famotidine [Pepcid 20 MG (*)] 20 mg PO BID PRN 11/13/17 [Last Taken 05/24/18 16: 00] Albuterol [Proventil Inhaler HFA (*)] 1 - 2 puffs IH Q4H PRN 01/04/18 [Last Taken 1 Day Ago ~05/24/18] Apixaban [Eliquis] 5 mg PO BID 04/01/18 [Last Taken 05/22/18 19:00] Atorvastatin Calcium [Lipitor 20 mg (*)] 20 mg PO HS 05/14/18 [Last Taken 1 Day Ago ~05/24/18] - NPO status NPO Since - Liquids (Date): 05/25/18 NPO Since - Liquids (Time): 05:30 NPO Since - Solids (Date): 05/24/18 NPO Since - Solids (Time): 21:00 - Smoking Hx Smoking Status: Former smoker - Family Anes Hx Family Hx Anesthesia Complications: none ANE Labs/Vital Signs - Vital Signs Blood Pressure: 146/98 Heart Rate: 82 Respiratory Rate: 18 O2 Sat (%): 97 Height: 182.88 cm Weight: 68.039 kg ANE Physical Exam - Airway Neck exam: FROM Mallampati Score: Class 2 Mouth exam: normal dental/mouth exam, poor dentition - Pulmonary Pulmonary: no respiratory distress, no rales or rhonchi, clear to auscultation - Cardiovascular Cardiovascular: regular rate and rhythym, no murmur, rub, or gallop - ASA Status ASA Status: III ANE Anesthesia Plan Anesthesia Plan: general endotracheal anesthesia
[2018-05-25] MEDS ORDERED: MIDAZOLAM 2 MG/2 ML VIAL IVP ONE (13:31)
[2018-05-25] MEDS ORDERED: ROCURONIUM 50 MG/5 ML VIAL ONE (13:49)
[2018-05-25] MEDS ORDERED: ONDANSETRON 4 MG/2 ML VIAL ONE (13:49)
[2018-05-25] MEDS ORDERED: LIDOCAINE 2% 5 ML SDV ONE (13:49)
[2018-05-25] MEDS ORDERED: fentaNYL 250 MCG/5 ML INJ ONE (13:49)
[2018-05-25] MEDS ORDERED: DEXAMETHASONE 4 MG/ML VIAL ONE (13:49)
[2018-05-25] MEDS ORDERED: ETOMIDATE 20 MG/10 ML VIAL ONE (13:49)
[2018-05-25] MEDS ORDERED: PROPOFOL 200 MG/20 ML VIAL ONE (14:25)
[2018-05-25] MEDS ORDERED: ePHEDrine SULFATE 25 MG/5 ML SYR ONE (14:26)
--- NOTE | 2018-05-25 15:29 | POSTANESTH ---
Post Anesthetic Evaluation Cardiovascular Status: Normal, Stable Respiratory Status: Normal, Stable Level of Consciousness/Mental Status: Can Participate in Eval Pain Control: Adequate, Prn Tx Ordered Nausea/Vomiting Control: Adequate, Prn Tx Ordered Complications Possibly Related to Anesthesia: None Noted
[2018-05-25] MEDS ORDERED: HYDROmorphONE/DILAUDID 2 MG/ML INJ ONE ×2 (15:38→21:39)
[2018-05-25] MEDS ORDERED: NALOXONE HCL 0.4 MG/ML INJ IVP PRN (15:43)
[2018-05-25] MEDS ORDERED: METOCLOPRAMIDE 10 MG/2 ML VIAL IVP PRN (15:43)
[2018-05-25] MEDS ORDERED: ONDANSETRON 4 MG/2 ML VIAL IVP PRN ×2 (15:43→21:45)
[2018-05-25] MEDS ORDERED: oxyCODONE IR 5 MG TAB PO PRN (15:43)
[2018-05-25] MEDS ORDERED: PHENYLEPHRINE HCL 100 MCG/ML SYR IVP PRN (15:43)
[2018-05-25] MEDS ORDERED: PROMETHAZINE HCL 25 MG/ML INJ IVP PRN (15:43)
[2018-05-25] MEDS ORDERED: IOTHALAMATE MEG (CONRAY) 50 ML VIAL IV ONE ×2 (16:37→19:18)
[2018-05-25] MEDS ORDERED: fentaNYL 100 MCG/2 ML INJ ONE ×6 (17:25→22:14)
[2018-05-25] MEDS ORDERED: PAPAVERINE HCL 60 MG/2 ML SDV ONE (19:19)
[2018-05-25] MEDS ORDERED: BUPIVACAINE 0.25% 10 ML SDV ONE (21:16)
[2018-05-25] MEDS ORDERED: MEPERIDINE 25 MG/0.5 ML AMP ONE (21:39)
[2018-05-25] MEDS ORDERED: MEPERIDINE 25 MG/0.5 ML AMP IVP ONE (21:39)
[2018-05-25] MEDS: HYDROmorphONE/DILAUDID 2 MG/ML INJ IVP PRN ×5 (21:40→22:25)
[2018-05-25] MEDS: fentaNYL 100 MCG/2 ML INJ IVP PRN ×2 (21:40→21:55)
[2018-05-25] MEDS ORDERED: LORazepam 1 MG TAB PO PRN (21:45)
[2018-05-25] MEDS ORDERED: HYDROmorphONE/DILAUDID 1 MG/ML INJ IVP PRN (21:45)
[2018-05-25] MEDS ORDERED: ACETAMINOPHEN 325 MG TAB PO PRN (21:45)
--- NOTE | 2018-05-25 21:45 | POSTOPPROG ---
Post Op Note Date of Operation: 05/25/18 Surgeon: Nahid Wang Education Professor: Arcenio Kendrick Anesthesiologist: Monty Curiel Anesthesia: GET(General Endotracheal) Pre-op Diagnosis: Right SFA occlusion/cardiac thromboembolism Post-op Diagnosis: Same Procedure: Right femoral artery to anterior tibial artery bypasss with rev SVG Findings: Difficult dissections, small tibial vessel, single vessel runoff to DP Inf/Abcess present in the surg proc area at time of surgery?: No EBL: 100-500 Complications: no immediate Specimen(s): none
[2018-05-25] MEDS ORDERED: ALBUTEROL 60 PUFFS/8 GM MDI IH PRN (21:50)
[2018-05-25] MEDS ORDERED: LR 1,000 ML IV SCH (22:00)
[2018-05-25] MEDS ORDERED: oxyCODONE IR 5 MG TAB ONE (22:18)
[2018-05-25] MEDS: oxyCODONE IR 15 MG TAB PO PRN (22:19)
[2018-05-26] MEDS ORDERED: HEPARIN 5,000 UNIT/0.5 ML INJ SC SCH (06:00)
[2018-05-26] MEDS ORDERED: ceFAZolin 2 GM/DEXTROSE 100 ML IV ONE (06:52)
--- NOTE | 2018-05-26 07:01 | SOAPPROG ---
SOAP Progress Note Assessment/Plan: Assessment:no complaints. min pain. no cp or sob. avss. comfortable. incis clean. thigh and calf compartments soft. absent DP signal at distal anast and ankle. postop graft occlusion - needs re exploration this afternoon. will start heparin drip in interim time. discussed with patient and so at bedside. Plan: 05/26/18 06:59 Objective: Vital Signs Temp Pulse Resp BP Pulse Ox 36.9 C 86 17 95/63 L 91 L 05/26/18 04:00 05/26/18 04:00 05/26/18 04:00 05/26/18 04:00 05/26/18 04:00 Laboratory Results 05/26/18 04:50 05/25/18 05/26/18 05/27/18 05:59 05:59 05:59 Intake Total 3750 Output Total 1550 Balance 2200 ICD10 Worksheet Patient Problems: Problems Problem Status Onset Aneurysm of heart Acute Arterial embolism of right leg Acute Coronary stent patent Acute Left ventricular thrombus without [place] Acute Right leg pain Acute
--- NOTE | 2018-05-26 07:40 | GOP ---
DATE OF OPERATION: 05/25/2018 SURGEON: Nahid Wang MD ABRASIVE SAWYER: Arcenio Kendrick MD. ANESTHESIA: General. ANESTHESIOLOGIST: Dr. Monty Curiel. PREOPERATIVE DIAGNOSIS: Right superficial femoral artery thromboembolus. POSTOPERATIVE DIAGNOSIS: Right superficial femoral artery thromboembolus. PROCEDURE PERFORMED: 1. Right superficial femoral artery to anterior tibial artery bypass with reverse saphenous vein graft. 2. Use of intraoperative fluoroscopy and ultrasound. INDICATIONS: A 48-year-old male with a significant history for a cardiomyopathy and a cardiac thrombus. He sustained a thromboembolus to his distal right superficial femoral artery approximately 1 year ago. He continues to have progressive claudication symptoms nearing the point of rest pain. He has been appropriately anticoagulated for his persistent cardiac thrombus. He is undergoing a fem to anterior tibial artery bypass. Surgical risks and benefits were explained of bleeding, infection, graft failure, need for additional revascularization, nerve injury, limb loss, as well as associated cardiac complications such as heart attack, stroke, arrhythmia, or others. All questions were answered. He desires to proceed. DESCRIPTION OF PROCEDURE: General anesthesia was induced. Intraoperative ultrasound was utilized to map out the right saphenous vein. The femoral artery was interrogated down to the mid thigh where a thrombus was noted consistent with the patient's angiogram. The infrapopliteal dissection was initially undertaken. The patient's complex tattoo was outlined. The gastrocnemius muscle was retracted posteriorly, allowing for entrance toward the popliteal fossa. The distal popliteal artery was completely small and diminutive without pulsatility. Portions of the soleus muscle were taken off the tibia, allowing for the distal popliteal artery and trifurcation vessels to be identified. The anterior tibial artery was encompassed with vessel loops as was the popliteal and tibioperoneal trunk. There was significant scarification from prior thrombus as well as catheter-based interventions including thrombolysis making portions of this dissection quite challenging. Nuisance venous bleeding was all controlled with hemoclips or electrocautery. The proximal thigh was subsequently dissected out through a separate incision. The sartorius muscle was reflected posteriorly. The vastus medialis fascia was opened, allowing for exposure to the superficial femoral artery as well as the femoral vein. This artery was circumferentially encompassed with vessel loops. The artery was soft with excellent pulsatile flow without calcific plaque. Intraoperative fluoroscopy was utilized to further interrogate the infrageniculate vasculature. A butterfly needle was placed into the distal popliteal artery. No filling of the anterior tibial artery was identified. The needle was replaced immediately at the crotch of the trifurcation vessels, aiming toward the anterior tibial artery. Again, there was no antegrade flow coursing toward the foot as noted on preoperative angiography thus suggesting a chronic occlusion of the origin with reconstitution distally through the interosseous membrane. The anterior tibial artery was dissected distally on top of the leg. A longitudinal incision was created lateral to the tibia. The anterior tibialis musculature as well as extensor hallucis intermuscular planes were allowing for exposure down to the anterior tibial artery and veins. As was encountered with the infrapopliteal dissection, there was significant scarification along the muscle fascia at this location. Significant time was spent encompassing the artery in away from its paired venae comitantes. There was notable nuisance bleeding encountered at this location as well. The saphenous vein was harvested from the mid calf to the proximal thigh. All branches were all ligated with hemoclips and the vein excised from the leg. Bleeding points were all controlled with either suture ligatures or additional hemoclip placement upon completion graft injection. The graft was tunneled anatomically in subsartorial location coursing toward the popliteal fossa between the head of the gastrocnemious muscles. A curved clamp was passed through the interosseous membrane. The graft was marked for orientation and tunneled in retrograde fashion. The distal anastomosis was initially completed after heparin bolus administration. A longitudinal arteriotomy was created on the extremely small, yet soft anterior tibial artery. A end-to-side anastomosis was created with a running 7-0 Prolene suture. There was small backbleeding noted upon clamp removal and no bleeding from the anastomotic site. Intraoperative fluoroscopy was used for further confirmation of the anastomotic patency as well as the distal runoff. This confimed solitary runoff to the level of the foot without graft kinking throughout the various portions of the tunnel tract. The proximal anastomosis was subsequently created in end-to-side fashion again with a running 6-0 Prolene suture. Occluding clamps were released, restoring flow to the foot. Notable bleeding was encountered from a portion of the vein graft which was further repaired with an additional hemoclip placement. Significant time was spent obtaining satisfactory hemostasis from the cut muscle surfaces throughout the anterior tibial artery space as well as through the popliteal fossa. This was satisfactorily accomplished. Re-inspection of the proximal anastomosis showed undesirable graft redundancy. Occluding clamps were reapplied and the excess vein excised. This was repaired in end to end fashion after spatulating the ends with a running 6-0 prolene suture. Excellent run-off was reconfirmed. Wounds were all individually closed in layers with absorbable suture, maintaining the prior tattoo intact. Dermabond was applied. The patient was taken to recovery awake in good condition with a strong Doppler signal at the level of the dorsalis pedis. Copy requested to: Liza Montanez /[id number]/MODL MTDD
[2018-05-26] MEDS: ASPIRIN 81 MG CHEWABLE TAB PO SCH (08:18)
[2018-05-26] MEDS: METOPROLOL TARTRATE 25 MG TAB PO SCH ×2 (08:18→21:35)
[2018-05-26] MEDS: FAMOTIDINE 20 MG TAB PO PRN (08:18)
[2018-05-26] MEDS: HYDROCODONE/APAP 5/325 TAB PO PRN ×2 (08:23→13:54)
[2018-05-26] MEDS ORDERED: HEPARIN 5,000 UNIT/0.5 ML INJ IV ONE (09:30)
[2018-05-26] MEDS: HEPARIN/DEXTROSE 500 ML IV SCH (10:04)
--- NOTE | 2018-05-26 10:34 | PDMN ---
Medical Necessity Medical necessity: [facility] [place] S480 Fem Pop Bypass: 48 yo s/p R fem distal bypass, Medicare inpt only
[2018-05-26] MEDS ORDERED: PAPAVERINE HCL 60 MG/2 ML SDV ONE (14:14)
[2018-05-26] MEDS ORDERED: BUPIVACAINE 0.5% 30 ML SDV ONE (14:14)
[2018-05-26] MEDS ORDERED: CEFAZOLIN 2 GM/DEXTROSE/100 ML BAG IV ONE (14:36)
[2018-05-26] MEDS ORDERED: LR 1,000 ML IV ONE (15:12)
[2018-05-26] MEDS ORDERED: MIDAZOLAM 2 MG/2 ML VIAL ONE (15:18)
[2018-05-26] MEDS ORDERED: PROPOFOL 200 MG/20 ML VIAL ONE (15:18)
[2018-05-26] MEDS ORDERED: ONDANSETRON 4 MG/2 ML VIAL ONE (15:19)
[2018-05-26] MEDS ORDERED: DEXAMETHASONE 4 MG/ML VIAL ONE (15:19)
[2018-05-26] MEDS ORDERED: RANITIDINE 50 MG/2 ML VIAL ONE (15:20)
[2018-05-26] MEDS ORDERED: fentaNYL 100 MCG/2 ML INJ ONE ×2 (15:20→20:02)
[2018-05-26] MEDS ORDERED: ETOMIDATE 20 MG/10 ML VIAL ONE (15:27)
[2018-05-26] MEDS ORDERED: HYDROmorphONE/DILAUDID 2 MG/ML INJ ONE ×2 (15:58→16:52)
[2018-05-26] MEDS ORDERED: IOPAMIDOL (ISOVUE-M 300) 15 ML VIAL ONE (16:35)
[2018-05-26] MEDS ORDERED: HYDROmorphONE/DILAUDID 2 MG/ML INJ IVP PRN (17:12)
[2018-05-26] MEDS ORDERED: MIDAZOLAM 2 MG/2 ML VIAL IVP ONE (17:12)
[2018-05-26] MEDS ORDERED: ONDANSETRON 4 MG/2 ML VIAL IVP PRN (17:12)
[2018-05-26] MEDS ORDERED: NALOXONE HCL 0.4 MG/ML INJ IVP PRN (17:12)
[2018-05-26] MEDS ORDERED: fentaNYL 100 MCG/2 ML INJ IVP PRN (17:12)
[2018-05-26] MEDS ORDERED: IOTHALAMATE MEG (CONRAY) 50 ML VIAL IV ONE ×2 (17:14→19:15)
--- NOTE | 2018-05-26 17:14 | PDANEPAE ---
ANE History of Present Illness Leg Bypass Exploration ANE Past Medical History - Cardiovascular History Hx Hypertension: Yes Hx Arrhythmias: Yes Hx Chest Pain: Yes Hx Coronary Artery / Peripheral Vascular Disease: Yes Hx CHF / Valvular Disease: No Hx Palpitations: No Cardiovascular History Comment: htn. blood clotting tendency. Clot removal from LV with Phillip 10/2017. Clot to legs. icd placed 11/14/10. RI in 2009 stent placed at that time - Pulmonary History Hx COPD: No Hx Asthma/Reactive Airway Disease: Yes Hx Recent Upper Respiratory Infection: No Hx Oxygen in Use at Home: No Hx Sleep Apnea: No Sleep Apnea Screening Result - Last Documented: Negative Pulmonary History Comment: Mild Asthma - Neurologic History Hx Cerebrovascular Accident: Yes Hx Seizures: No Hx Dementia: No Neurologic History Comment: stroke in Jul 2017. No residual problems. - Endocrine History Hx Diabetes: No Hypothyroid: No - Renal History Hx Renal Disorders: No - Liver History Hx Hepatic Disorders: No - Neurological & Psychiatric Hx Hx Neurological and Psychiatric Disorders: No - Cancer History Hx Cancer: No - Congenital Disorder History Hx Congenital Disorders: No - GI History Hx Gastrointestinal Disorders: Yes Gastrointestinal History Comment: GERD occasional well controlled - Other Health History Other Health History: wears glasses - Chronic Pain History Chronic Pain: Yes (right leg) - Surgical History Prior Surgeries: 04/07/18 rle/ pelvic angiogram at [facility]. 11/19/17 removal of LV clot with Phillip. [place] Teeth extraction;. B Eye RK Sx;. BACK SURGERIES x 2; . RI STENT X 1;. ICD placement 2010;. TPA for R Leg Oct, 2017;. Open Heart in Oct, 2017 for ventricular clots; ANE Review of Systems Review of Systems: - Exercise capacity METS (RN): 3 METS - Pacemaker Pacemaker Type: Permanent Pacer/Defib Pacemaker [employer]: [place] Pacemaker Model: 2231-40Q Pacemaker Mode: DDD Pacemaker Set Rate: 50 Date Pacemaker Last Checked: 05/04/18 ANE Patient History - Allergies Allergies/Adverse Reactions: adhesive tape Allergy (Verified 05/17/18 17:00) rash and blisters - Home Medications Home Medications: Famotidine [Pepcid 20 MG (*)] 20 mg PO BID PRN 11/13/17 [Last Taken 05/24/18 16: 00] Albuterol [Proventil Inhaler HFA (*)] 1 - 2 puffs IH Q4H PRN 01/04/18 [Last Taken 1 Day Ago ~05/24/18] Apixaban [Eliquis] 5 mg PO BID 04/01/18 [Last Taken 05/22/18 19:00] Atorvastatin Calcium [Lipitor 20 mg (*)] 20 mg PO HS 05/14/18 [Last Taken 1 Day Ago ~05/24/18] - NPO status NPO Since - Liquids (Date): 05/26/18 NPO Since - Liquids (Time): 06:00 NPO Since - Solids (Date): 05/25/18 NPO Since - Solids (Time): 23:00 - Smoking Hx Smoking Status: Former smoker - Family Anes Hx Family Hx Anesthesia Complications: none ANE Labs/Vital Signs - Labs Result Diagrams: 05/26/18 04:50 - Vital Signs Blood Pressure: 124/81 Heart Rate: 83 Respiratory Rate: 16 O2 Sat (%): 95 Height: 182.88 cm Weight: 68.039 kg ANE Physical Exam - Airway Neck exam: FROM Mallampati Score: Class 2 Mouth exam: normal dental/mouth exam - Pulmonary Pulmonary: clear to auscultation - Cardiovascular Cardiovascular: regular rate and rhythym - ASA Status ASA Status: III ANE Anesthesia Plan Anesthesia Plan: GA w LMA
--- NOTE | 2018-05-26 17:29 | ASMTCMCOM ---
CM Note CM Note Notes: Pt admitted to hospital for a scheduled surgery for LE thrombosis. Pt was taken to surgery but appears to have had an occlusion, pt taken back to OR. Pt works and has a significant other, dc needs uncertain, PT eval pending. DC Plan: TBD Date Signed: 05/26/2018 05:29 PM Electronically Signed By:Mary Villarreal RN
[2018-05-26] MEDS ORDERED: ePHEDrine SULFATE 25 MG/5 ML SYR ONE (18:45)
[2018-05-26] MEDS ORDERED: PHENYLEPHRINE HCL 100 MCG/ML SYR ONE (18:46)
--- NOTE | 2018-05-26 20:06 | POSTOPPROG ---
Post Op Note Date of Operation: 05/26/18 Surgeon: Nahid Wang Jewel Diameter Gauger: Arcenio Kenrdick Anesthesiologist: Shlomo Chery Anesthesia: GET(General Endotracheal) Pre-op Diagnosis: Right fem tib graft thrombosis Post-op Diagnosis: Same Procedure: Right fem tib thrombectomy with anast revision Findings: narrowing at interossesous membrane and distal anast Inf/Abcess present in the surg proc area at time of surgery?: No EBL: 100-500 Complications: no immediate
[2018-05-26] MEDS: oxyCODONE IR 15 MG TAB PO PRN (21:35)
[2018-05-26] MEDS: ATORVASTATIN CALCIUM 20 MG TAB PO SCH (21:40)
[2018-05-27] MEDS: HEPARIN/DEXTROSE 500 ML IV SCH (05:10)
--- NOTE | 2018-05-27 07:14 | GOP ---
DATE OF OPERATION: 05/26/2018 SURGEON: Nahid Wang MD ANESTHESIA: General. ANESTHESIOLOGIST: Shlomo Chery DO. PREOPERATIVE DIAGNOSIS: Graft occlusion status post femoral anterior tibial artery bypass with reverse saphenous vein graft. POSTOPERATIVE DIAGNOSIS: Graft occlusion status post femoral anterior tibial artery bypass with reverse saphenous vein graft. PROCEDURE PERFORMED: 1. Graft thrombectomy with revision of anterior tibial anastomosis. 2. Use of intraoperative fluoroscopy. FINDINGS: Graft thrombosis, possible interosseous membrane vs distal anastomosis stenosis. INDICATIONS: 48-year-old male with a significant history for cardiomyopathy and a ventricular thrombus. He sustained an occlusion of his superficial femoral artery. He underwent open ventricular thrombectomy with immediate clot recurrence. The patient has been maintained on anticoagulation in the interim time. He has developed worsening progressive chronic symptoms. He underwent a complex right femoral artery to anterior tibial artery bypass graft yesterday with reverse saphenous vein graft. He has developed a graft occlusion in the interim time. He is undergoing operative re-exploration at this time. Risks and benefits were explained in detail including, but not limited to bleeding, infection, recurrent graft thrombosis and failure, need for additional revascularization, limb loss, as well as associated cardiovascular risks. All questions were answered. He desires to proceed. DESCRIPTION OF PROCEDURE: General anesthesia was re-induced. The right anterior tibial artery incision was anesthetized with 0.5% Marcaine. Incision was reopened. The anterior tibial artery and saphenous vein graft were all encompassed with vessel loops. The graft was confirmed occluded. The patient was already therapeutic on heparin. A longitudinal graftotomy was created over the plascencia of the graft. A #3 and 4 Sandy catheter was passed proximally way beyond the proximal anastomosis. Full length soft thrombus was all retrieved reestablishing rapid antegrade flow. The artery was then occluded. A small Sandy catheter was passed beyond the distal anastomosis toward the level of the foot. A small clot was retrieved followed by small volume backbleeding. Intraoperative fluoroscopy was utilized showing a subtle area of stenosis at the level of the anterior tibial artery anastomosis. The interosseous membrane visually was also noted to have evidence of pinch point. The interosseous membrane was completely split further, this time both longitudinally and horizontally cutting the posterior tibial muscle fascia allowing for a large communication via the tibia and fibula. The graft was able to be moved both proximally and distally via the opening without difficulty. Given the graft failure and unclear source of occlusion ( interosseous membrane tethering or distal anastomotic stenosis), it was opted to revise the distal anastomosis. Occluding clamps were placed upon both proximal and distal anterior tibial arteries as well as the graft. The anastomosis was completely taken down. Small intimal irregularities were all cleaned off the anterior tibial artery showing a reasonably healthy, albeit small artery for reanastomosis. The vein appeared to be intact with healthy-appearing edges. The anastomosis was recreated using a running 7-0 Prolene suture. The artery had been forward bled and back bled prior to reestablishing flow toward the foot. There was diminished arterial inflow yet again. A graftotomy was again reopened and Sandy catheters passed proximally reestablishing excellent pulsatile inflow. Interestingly, despite the excellent pulsatility of the graft doppler interrogation showed a minimally phasic signal. The probe had been changed again without confirmation of a biphasic signal. Intraoperative fluoroscopy was again utilized confirming a nicely patent tibial anastomosis and excellent single-vessel runoff toward the ankle. No palpable pulse was present despite adequate systemic pressure. Again, doppler interrogation of the ankle was unable to identify evidence of a signal. Given a satisfactory visual appreciation of the anastomosis and poor audible confirmation, it was opted to re-explore the proximal anastomosis to ensure no other anatomic abnormalities. The proximal thigh incision was anesthetized with 0.5% Marcaine and reopened. The graft was easily reidentified showing this to be widely patent with a huge proximal anastomosis with no concern for stenosis. The graft anastomosis also appeared widely patent from graft redundancy shortening from yesterday's procedure. A #3 Sandy catheter was able to be passed from the proximal vein all the way down to the foot. No resistance was encountered passing through the distal anastomosis nor any other hang ups appreciated along the way. Final fluoroscopy showed excellent graft contouring without areas of kinking, stenosis or distal anastomotic concern. The flow did travel toward the foot. The puncture site was reclosed and the graft reopened again. Good pulsatile inflow was noted at the distal anastomosis. Again, we were unable to establish any form of a Doppler signal at the level of the foot and distal anastomosis. Given the visual findings, these findings were felt most consistent with arterial spasm. It was opted to terminate the procedure at this point and keep the patient on full dose anticoagulation, allowing for spasm to resolve. Satisfactory hemostasis was assured. The wounds were closed in layers with absorbable suture by Dermabond. The patient was extubated in the operating room and taken to recovery in satisfactory condition. In recovery, the patient was noted to have an increasingly audible ankle doppler signal. /[id number]/MODL MTDD
--- NOTE | 2018-05-27 07:59 | SOAPPROG ---
CARY Progress Note Assessment/Plan: Assessment:good night. c/o foot pain today. no cp or sob. "foot hasn't felt this way in over a year". avss. incis clean. compartments all soft. foot pink and warm. strong doppler along AT length. small microembolic changes sole of foot. s/p fem tib revision/graft thrombectomy. graft widely patent today. resume eliquis today am. ambulate. quintanilla out. excellent progress. Plan: 05/26/18 06:59 05/27/18 07:56 Objective: Vital Signs Temp Pulse Resp BP Pulse Ox 36.9 C 64 16 98/58 L 91 L 05/27/18 04:00 05/27/18 04:00 05/27/18 04:00 05/27/18 04:00 05/27/18 04:00 Laboratory Results 05/27/18 05:02 05/26/18 05/27/18 05/28/18 05:59 05:59 05:59 Intake Total 3750 2200 Output Total 1550 4550 Balance 2200 -2350 ICD10 Worksheet Patient Problems: Problems Problem Status Onset Aneurysm of heart Acute Arterial embolism of right leg Acute Coronary stent patent Acute Left ventricular thrombus without [place] Acute Right leg pain Acute
[2018-05-27] MEDS: ASPIRIN 81 MG CHEWABLE TAB PO SCH (09:06)
[2018-05-27] MEDS: METOPROLOL TARTRATE 25 MG TAB PO SCH ×2 (09:06→20:33)
[2018-05-27] MEDS: APIXABAN 5 MG TAB PO SCH ×2 (09:06→20:33)
[2018-05-27] MEDS: HYDROCODONE/APAP 5/325 TAB PO PRN ×2 (09:07→16:20)
[2018-05-27] MEDS: FAMOTIDINE 20 MG TAB PO PRN (09:07)
[2018-05-27] MEDS: ATORVASTATIN CALCIUM 20 MG TAB PO SCH (20:33)
[2018-05-28 08:04] VITALS: BP 116/70
[2018-05-28] MEDS: METOPROLOL TARTRATE 25 MG TAB PO SCH (08:37)
[2018-05-28] MEDS: APIXABAN 5 MG TAB PO SCH (08:37)
[2018-05-28] MEDS: ASPIRIN 81 MG CHEWABLE TAB PO SCH (08:37)
--- NOTE | 2018-05-28 10:30 | SOAPPROG ---
CARY Progress Note Assessment/Plan: Assessment:feeling good. ambulation improving. avss. incis clean. extremely strong ?peroneal signal. foot pink and warm. doing great. graft remains patent. home today. has gabapentin at home - will restart upon discharge for anticipated reperfusion pain/swelling. f/u 1-2 weeks. full dc instructions explained. good night. c/o foot pain today. no cp or sob. "foot hasn't felt this way in over a year". avss. incis clean. compartments all soft. foot pink and warm. strong doppler along AT length. small microembolic changes sole of foot. s/ p fem tib revision/graft thrombectomy. graft widely patent today. resume eliquis today am. ambulate. quintanilla out. excellent progress. Plan: 05/26/18 06:59 05/27/18 07:56 05/28/18 10:29 Objective: Vital Signs Temp Pulse Resp BP Pulse Ox 36.8 C 93 19 116/70 93 05/28/18 08:00 05/28/18 08:37 05/28/18 08:00 05/28/18 08:37 05/28/18 08:00 Laboratory Results 05/27/18 05:02 05/27/18 05/28/18 05/29/18 05:59 05:59 05:59 Intake Total 2200 400 Output Total 9830 800 Balance -2350 -400 ICD10 Worksheet Patient Problems: Problems Problem Status Onset Aneurysm of heart Acute Arterial embolism of right leg Acute Coronary stent patent Acute Left ventricular thrombus without [place] Acute Right leg pain Acute
--- NOTE | 2018-05-28 11:38 | ASMTLACE ---
RODE Length of stay for Answers: 3 days current admission Acuity / Level of Answers: Yes Care: Did the patient have an inpatient admission? Comorbidities - select Answers: Cerebrovascular disease all that apply (CVA, TIA, aneurysms, vasc ular dementia) Coronary Artery Disease Opioid dependence / Chronic pain Previous myocardial infarction Other Notes: HTN # of Emergency department Answers: 0 visits in the last 6 months Score: 15 Date Signed: 05/28/2018 11:37 AM Electronically Signed By:Mary Villarreal RN
--- NOTE | 2018-05-28 12:03 | ASMTCMCOM ---
CM Note CM Note Notes: CM spoke w/RN, does not think pt has any homecare needs at this time. He will dc home w/support of girlfriend when medically stable, CM available for any changes. DC Plan: Independent Date Signed: 05/28/2018 11:39 AM Electronically Signed By:Mary Villarreal RN
--- NOTE | 2018-05-28 14:42 | GDS ---
REASON FOR ADMISSION: Femoral artery thrombo occlusion. HOSPITAL COURSE: 48-year-old male with a significant history for right superficial femoral artery occlusion secondary to cardiac embolus. He was admitted for a femoral to tibial artery bypass, which he underwent on the with a reverse saphenous vein. He was returned to the operating room the following day for a graft occlusion. Re-exploration with thrombectomy and distal anastomotic revision was performed. He had an otherwise completely benign postoperative course, being maintained on anticoagulation (heparin then eliquis). He was discharged to home on the in good condition, with markedly improved foot flow, with a patent graft. He was to resume all pre- hospital medications. He was given prescriptions for [place] as needed for discomfort. No activity restrictions were offered. He will resume his gabapentin at home for anticipated reperfusion pain. He will be seen in the office with Dr. Wang in 1-2 weeks upon discharge. Full instructions were explained prior to leaving. /[id number]/MODL MTDD
== END 2018-05-28 12:20 | disposition home or self-care (01) | DRG 271 ==
LOC: F3N 11:33 → F3E 12:54
PROVIDERS: ADMIT Surgery; ATTEND Surgery
PROC: 041K09N Bypass Right Femoral Artery to Posterior Tibial Artery with Autologous Venous Tissue, Open Approach (ICD-10-PCS; 2018-05-25)
PROC: 06BP0ZZ Excision of Right Saphenous Vein, Open Approach (ICD-10-PCS; 2018-05-25)
PROC: 04CK3ZZ Extirpation of Matter from Right Femoral Artery, Percutaneous Approach (ICD-10-PCS; principal; 2018-05-26 15:00)
DX: I74.3 Embolism and thrombosis of arteries of the lower extremities (principal); T82.868A Thrombosis due to vascular prosthetic devices, implants and grafts, initial encounter; Z79.01 Long term (current) use of anticoagulants; I10 Essential (primary) hypertension; J45.909 Unspecified asthma, uncomplicated; Z86.73 Personal history of transient ischemic attack (TIA), and cerebral infarction without residual deficits
CPT/HCPCS: 85520-90; C1757; J0690; J1100; J1170; J1644; J2175; J2250; J2370; J2405; J2440; J2704; J2780; J3010; Q9961; Q9967

== ENCOUNTER 2018-06-08 09:52 | Inpatient (IN) | payer OTHER ==
[2018-06-08] MEDS ORDERED: ONDANSETRON 4 MG/2 ML VIAL IVP PRN (11:20)
[2018-06-08] MEDS ORDERED: ACETAMINOPHEN 325 MG TAB PO PRN (11:20)
[2018-06-08] MEDS ORDERED: ONDANSETRON DISINTEGRATING 4 MG TAB PO PRN (11:20)
[2018-06-08] MEDS ORDERED: ALBUTEROL 60 PUFFS/8 GM MDI IH PRN (11:31)
--- NOTE | 2018-06-08 12:42 | GHP ---
DATE OF ADMISSION: 06/08/2018 REASON FOR ADMISSION: Graft occlusion. HISTORY OF PRESENT ILLNESS: A 48-year-old male with a significant history for coronary artery diseas e with a remote history of AL and cardiomyopathy. An AICD was placed after that episode. He was see n a year ago with a right leg artery occlusion secondary to cardiac embolus. The patient underwent o pen ventricular thrombectomy with ventricular reduction. Within the immediate postoperative his larg e cardiac clot recurred. He had been managed with a change in anticoagulation with changing from the Xarelto to Coumadin to Eliquis. He was admitted for a right femoral to tibial artery bypass 2 weeks ago. His graft was re-explored on postoperative day 1 with revision of his distal anastomosis. Exc ellent functional cosmetic outcome was obtained. In followup the patient is noted to have graft reoc clusion today despite ongoing anticoagulation. Furthermore, he also has evidence of a large segment of right arm superficial thrombophlebitis. He is being admitted for attempted IR graft declot and ly sis with further anticoagulation and consideration or options to be addressed during this visit. PAST MEDICAL HISTORY: Coronary artery disease, cardiomyopathy, left ventricular thrombus, right supe rficial and popliteal artery thromboembolus. PAST SURGICAL HISTORY: L5-S1 laminectomy with fusion, AICD placement, cardiac stent placement, open ventricular thrombectomy, right superficial femoral artery to anterior tibial artery with a reverse s aphenous vein graft. MEDICATIONS: Gabapentin, Eliquis, Proventil, Tylenol, Lopressor, [place], Pepcid, calcium, aspirin. ALLERGIES: No known drug allergies. SOCIAL HISTORY: No current alcohol or tobacco. 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 PHYSICAL EXAM: GENERAL: The patient is alert, appropriate comfortable. HEENT: Anicteric. HEART: Regular. LUNGS: Clear. ABDOMEN: Soft, nontender. EXTREMITIES: Right lower extremity incisions are clean. Medial calf seroma site with surrounding hyperemia without erythema. Notable femoral to tibial artery graft occlusion. The foot is viable, pink and cool similar to preop. IMPRESSION: 1. Femoral to tibial artery graft occlusion. 2. History of cardiomyopathy. 3. Known ventricular thrombus. 4. Hypercoagulability. PLAN: 1. IR clot lysis with hopeful graft salvage. 2. Further anticoagulation assessment to be revisited. Copy requested to: Liza Montanez /[id number]/MODL
[2018-06-08 12:51] LABS: PLATELET COUNT 433 10^3/uL (150-400)
[2018-06-08 12:59] LABS: INR 1.11 (0.83-1.16); PROTIME(PATIENT) 14.5 SEC (12.0-15.0)
[2018-06-08] MEDS ORDERED: NS 1,000 ML IV ONE (13:23)
[2018-06-08] MEDS ORDERED: HEPARIN 10,000 UNIT/10 ML MDV (1,000 UNIT/ML) IVP PRN (16:21)
[2018-06-08] MEDS ORDERED: NALOXONE HCL 0.4 MG/ML INJ IVP PRN (16:21)
[2018-06-08] MEDS ORDERED: FLUMAZENIL 0.5 MG/5 ML MDV IVP PRN (16:21)
[2018-06-08] MEDS ORDERED: PROTAMINE SULFATE 50 MG/5 ML VIAL IVP PRN (16:21)
[2018-06-08] MEDS ORDERED: ALTEPLASE 2 MG VIAL IVP PRN (16:21)
[2018-06-08] MEDS ORDERED: MEPERIDINE 25 MG/ML SYR IVP PRN (16:21)
[2018-06-08] MEDS ORDERED: GLUCAGON HCL 1 MG VIAL IVP PRN (16:21)
[2018-06-08] MEDS ORDERED: NALOXONE HCL 0.4 MG/ML INJ ONE (17:36)
[2018-06-08] MEDS ORDERED: MIDAZOLAM 2 MG/2 ML VIAL ONE ×2 (17:36→18:44)
[2018-06-08] MEDS ORDERED: FLUMAZENIL 0.5 MG/5 ML MDV IVP ONE (17:36)
[2018-06-08] MEDS ORDERED: fentaNYL 100 MCG/2 ML INJ ONE ×2 (17:37→18:45)
--- NOTE | 2018-06-08 17:50 | PDMN ---
Medical Necessity Medical necessity: Pt meets inpt criteria per MD order and Cardiovascular Surgery or Procedure GRG. 48 y/o w/signif hx for coronary artery disease, remote hx NC and cardiomyopathy, recent right femoral to tibial artery bypass ( 2 weeks ago), now admitted w/femoral to tibial artery graft occlusion, plan for IR clot lysis w/hopeful graft salvage. Est LOS>2MN for ongoing eval/management of above.
[2018-06-08] MEDS: NS 1,000 ML IV SCH (18:20)
[2018-06-08] MEDS ORDERED: ALTEPLASE 5 MG in NS 100 ML IV ONE (18:30)
[2018-06-08] MEDS ORDERED: HEPARIN/DEXTROSE 500 ML IV ONE (18:30)
[2018-06-08] MEDS ORDERED: DEXMEDETOMIDINE HCL 200 MCG in NS 50 ML IV ONE (18:30)
[2018-06-08] MEDS ORDERED: LIDOCAINE 1% 300 MG/30 ML SDV ONE (18:53)
[2018-06-08] MEDS ORDERED: IOPAMIDOL (ISOVUE-300) 100 ML BTL ONE (18:54)
[2018-06-08] MEDS ORDERED: PROMETHAZINE HCL 25 MG/ML INJ IVP PRN (18:58)
--- NOTE | 2018-06-08 19:02 | PDRADPN ---
Radiology Procedure Note Date of Procedure: 06/08/18 Radiologist: Bianka Byrd Anesthesia: IV Sedation Pre-op Diagnosis: RLE clotted bypass graft Post-op Diagnosis: same Indication: cold leg Procedure: RLE runoff, tpa lysis Finding(s): no runoff to foot. collaterals do not constitute any of the runoff vessels. bypass graft clotted in entirety. Inf/Abcess present in the surg proc area at time of surgery?: No
[2018-06-08] MEDS: LORazepam 1 MG TAB PO PRN (19:39)
[2018-06-08] MEDS: fentaNYL 100 MCG/2 ML INJ IVP PRN (19:45)
[2018-06-08] MEDS: MIDAZOLAM 2 MG/2 ML VIAL IVP PRN (19:46)
[2018-06-08] MEDS: DEXMEDETOMIDINE HCL 400 MCG in NS 100 ML IV SCH (20:42)
[2018-06-08] MEDS: ALTEPLASE 5 MG in NS 100 ML IV SCH (21:03)
--- NOTE | 2018-06-08 21:37 | ASMTCMCOM ---
CM Note CM Note Notes: Chart reviewed for discharge planning purposes. patient is a 48 year old male who recently underwent a right femoral to tibial artery bypass that has re-occluded. He will go for urgent embolization then likely go to the ICU post procedure. Previously discharged to home without needs. No needs anticipated at this time. CM available should needs change. Plan: Dc to home when medically stable. Date Signed: 06/08/2018 04:11 PM Electronically Signed By:Sanna Conti RN
[2018-06-09] MEDS: ALTEPLASE 5 MG in NS 100 ML IV SCH ×3 (00:14→09:57)
[2018-06-09] MEDS: APIXABAN 5 MG TAB PO SCH (00:18)
[2018-06-09] MEDS: GABAPENTIN 300 MG CAP PO SCH ×2 (00:19→23:19)
[2018-06-09] MEDS: METOPROLOL TARTRATE 25 MG TAB PO SCH ×3 (00:19→23:19)
[2018-06-09] MEDS: ATORVASTATIN CALCIUM 20 MG TAB PO SCH ×2 (00:19→23:18)
[2018-06-09] MEDS: HYDROCODONE/APAP 5/325 TAB PO PRN ×4 (00:22→19:38)
[2018-06-09] MEDS: DEXMEDETOMIDINE HCL 400 MCG in NS 100 ML IV SCH ×2 (00:46→09:51)
[2018-06-09] MEDS: LORazepam 1 MG TAB PO PRN ×2 (06:34→10:04)
[2018-06-09 06:46] LABS: PLATELET COUNT 366 10^3/uL (150-400)
[2018-06-09] MEDS: NS 1,000 ML IV SCH (08:20)
[2018-06-09] MEDS: ASPIRIN 81 MG CHEWABLE TAB PO SCH (09:03)
[2018-06-09] MEDS ORDERED: IOPAMIDOL (ISOVUE-300) 100 ML BTL ONE ×2 (14:54→17:38)
[2018-06-09] MEDS ORDERED: fentaNYL 100 MCG/2 ML INJ IVP PRN (15:09)
[2018-06-09] MEDS ORDERED: MEPERIDINE 25 MG/ML SYR IVP PRN (15:09)
[2018-06-09] MEDS ORDERED: FLUMAZENIL 0.5 MG/5 ML MDV IVP PRN (15:09)
[2018-06-09] MEDS ORDERED: NALOXONE HCL 0.4 MG/ML INJ IVP PRN (15:09)
[2018-06-09] MEDS ORDERED: MIDAZOLAM 2 MG/2 ML VIAL IVP PRN (15:09)
[2018-06-09] MEDS ORDERED: NS 1,000 ML IV SCH (15:15)
[2018-06-09] MEDS ORDERED: NITROGLYCERIN/D5W 50 MG/250 ML BOTTLE IV ONE (16:07)
[2018-06-09] MEDS ORDERED: ABCIXIMAB 10 MG/5 ML VIAL IA ONE (16:15)
--- NOTE | 2018-06-09 16:30 | PDRADPN ---
Radiology Procedure Note Date of Procedure: 06/09/18 Radiologist: Bianka Byrd Anesthesia: IV Sedation Pre-op Diagnosis: TPA LYSIS CHECK Post-op Diagnosis: SAME Indication: SAME Procedure: ANGIOGRAM, ANGIOPLASTY Finding(s): EXTRAVESATION AT DISTAL ANTERIOR TIBIAL ARTERY ANASTAMOSIS. [place] AT OTHERWISE OPEN. GRAFT WITH SPORATIC CLOTS. NO ANASTOMOTIC STENOSIS. Inf/Abcess present in the surg proc area at time of surgery?: No
[2018-06-09] MEDS: MIDAZOLAM 2 MG/2 ML VIAL IVP PRN (16:43)
[2018-06-09] MEDS: fentaNYL 100 MCG/2 ML INJ IVP PRN (16:44)
--- NOTE | 2018-06-09 16:47 | SOAPPROG ---
<VidyaMona peña - Last Filed: 06/09/18 16:43> SOAP Progress Note Assessment/Plan: Assessment/Plan: CV- return to IR today for repeat right leg graft lysis RESP- normal GI- unremarkable - unremarkable HEME- Discussed case with hematology, suggest heparin and coumadin therapy with target INR 2.5-3.5. ID- no concern for infection ENDO- unremarkable 06/09/18 16:49 Subjective: Patient complains of right foot pain onset last night. Little relief with narcotic medication, but improved with Ativan. Minimal left calf pain. Has not been ambulating. No other new concerns. Objective: Vital Signs Temp Pulse Resp BP Pulse Ox 36.4 C 60 18 109/69 99 06/09/18 12:00 06/09/18 14:00 06/09/18 14:00 06/09/18 16:05 06/09/18 16:10 Laboratory Results 06/09/18 06:05 06/09/18 14:20 06/08/18 06/09/18 06/10/18 05:59 05:59 05:59 Intake Total 2007 200 Output Total 800 600 Balance 1207 -400 PT 14.5 SEC (12.0-15.0) 06/08/18 11:00 INR 1.11 (0.83-1.16) 06/08/18 11:00 Gen: Laying in bed, appears uncomfortable with foot movement, afebrile, A&O x3 HEENT: normal Heart: regular rate Extremities: right foot warm with edema, tender, right medial foot pulse palpable. Nonpalpable right DP or PT. Left extremity unremarkable. Neuro: nonfocal ICD10 Worksheet Patient Problems: Problems Problem Status Onset Aneurysm of heart Acute Arterial embolism of right leg Acute Coronary stent patent Acute Left ventricular thrombus without [place] Acute Right leg pain Acute <Nahid Wang - Last Filed: 06/09/18 17:34> SOAP Progress Note Assessment/Plan: Assessment: patient seen on rounds and throughout IR treatment. continuing to clot graft. run off better than yesterday. small extrav noted at distal anast upon completion of his procedure today. sheath left beyond distal anast with continued heparin. postop exam with soft anterior compartment and no active bleeding through wound. mid thigh hematoma evacuated - no active bleeding here at this time. foot pink and warm. will continue heparin through infusion catheter acting as a stent beyond his distal anast extrav site tonight. discussed anti-coag plan with dr. rivera - leaning toward returning to coumadin. plan reviewed at length with patient and friend at bedside. Plan: 06/09/18 17:28 Objective: Vital Signs Temp Pulse Resp BP Pulse Ox 36.4 C 78 14 106/71 100 06/09/18 12:00 06/09/18 17:00 06/09/18 17:00 06/09/18 17:00 06/09/18 17:00 Laboratory Results 06/09/18 06:05 06/09/18 14:20 06/08/18 06/09/18 06/10/18 05:59 05:59 05:59 Intake Total 2007 200 Output Total 800 600 Balance 1207 -400 PT 14.5 SEC (12.0-15.0) 06/08/18 11:00 INR 1.11 (0.83-1.16) 06/08/18 11:00
[2018-06-09] MEDS ORDERED: HEPARIN/DEXTROSE 500 ML IV SCH (17:15)
[2018-06-09] MEDS ORDERED: HEPARIN 10,000 UNIT/10 ML MDV (1,000 UNIT/ML) IVP PRN (17:15)
--- NOTE | 2018-06-09 18:04 | GCON ---
PULMONARY CONSULTATION. DATE OF CONSULTATION: 06/09/2018 HISTORY OF PRESENT ILLNESS: This patient is a 48-year-old male with a history of coronary artery dis ease, myocardial infarction, and chronic arterial thrombosis. History of a right lower extremity emb olism and required thrombectomy in the past, and 2 weeks ago underwent fem tib bypass with Dr. Quinonez, required revision. He came into the hospital with lower extremity discomfort and cool, was found to have complete occlusion of his previous graft and no runoff. He was given tPA and brought to the in tensive care unit. In the ICU he has been quite stable, though he said today his foot is now warmer a nd his pain is increased. REVIEW OF SYSTEMS: Otherwise negative. PAST MEDICAL HISTORY: Includes coronary disease, myocardial infarction, cardiomyopathy, ICD placemen t, right lower extremity embolism and thrombectomy, recurrent cardiac clots and chronic anticoagulati on and gastroesophageal reflux disease. PAST SURGICAL HISTORY: Includes fem tib bypass and revision, L5-S1 laminectomy, cardiac stents and t hrombectomy as described. SOCIAL HISTORY: He is a nonsmoker. No alcohol or IV drug use. 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 FAMILY HISTORY: Noncontributory. MEDICATIONS: At this time include albuterol, [place], tPA, Eliquis, aspirin, Lipitor, Precedex, Pepcid , fentanyl, flumazenil, Neurontin, Ativan, Demerol, Lopressor, Versed, morphine, Narcan, Zofran, Phen ergan, normal saline, and Ambien. PHYSICAL EXAM: VITAL SIGNS: He was afebrile. Blood pressure was 105/59, heart rate of 59, respirat ions 22, oxygen saturation percent on 3 L. GENERAL: He was awake, alert, oriented x3, in no apparent distress. Able to speak in full sentences without using accessory muscles for breathing. HEENT: Pupils equally round and reactive to light. Nonicteric and noninjected. Mucous membranes mo ist without erythema or exudate. NECK: Supple without adenopathy or jugular vein distention. LUNGS: Breath sounds were clear to auscultation bilaterally without wheezes, rubs or rales. HEART: Regul ar rate and rhythm without murmurs, rubs, gallops. ABDOMEN: Soft, nontender, nondistended without h epatosplenomegaly. EXTREMITIES: Show no clubbing, cyanosis, or edema. His foot was warm but difficu lty finding pulses. NEURO: Exam nonfocal. OBJECTIVE DATA: Includes white count of 8.1, hematocrit 34, platelets 366. Fibrinogen 418. Basic m etabolic panel is essentially normal. ASSESSMENT AND PLAN: 1. Occlusion of previously occluded graft. He is due to go back to IR this afternoon. He should co ntinue his tPA moving forward. 2. Reflux disease, relatively stable at this time and should continue with antacid. 3. Pain control. He is on quite a bit of pain medications, appears to be controlling it fairly well . /[id number]/MODL
[2018-06-09] MEDS: FAMOTIDINE 20 MG TAB PO PRN (19:38)
[2018-06-10] MEDS: LORazepam 1 MG TAB PO PRN ×2 (01:59→19:53)
[2018-06-10] MEDS: HYDROCODONE/APAP 5/325 TAB PO PRN ×2 (04:30→11:21)
[2018-06-10] MEDS: DEXMEDETOMIDINE HCL 400 MCG in NS 100 ML IV SCH ×2 (06:04→10:42)
[2018-06-10] MEDS ORDERED: NALOXONE HCL 0.4 MG/ML INJ ONE (08:25)
[2018-06-10] MEDS ORDERED: MIDAZOLAM 2 MG/2 ML VIAL ONE (08:26)
[2018-06-10] MEDS ORDERED: FLUMAZENIL 0.5 MG/5 ML MDV IVP ONE (08:26)
[2018-06-10] MEDS ORDERED: fentaNYL 100 MCG/2 ML INJ ONE (08:26)
[2018-06-10] MEDS ORDERED: MEPERIDINE 25 MG/ML SYR IVP PRN (08:54)
[2018-06-10] MEDS ORDERED: NALOXONE HCL 0.4 MG/ML INJ IVP PRN (08:54)
[2018-06-10] MEDS ORDERED: MIDAZOLAM 2 MG/2 ML VIAL IVP PRN (08:54)
[2018-06-10] MEDS ORDERED: fentaNYL 100 MCG/2 ML INJ IVP PRN (08:54)
[2018-06-10] MEDS ORDERED: FLUMAZENIL 0.5 MG/5 ML MDV IVP PRN (08:54)
--- NOTE | 2018-06-10 08:57 | PDHPUP ---
History & Physical Update H&P update statement: This history and physical update is based on an assessment of the patient which was completed after admission or registration (within 24 hours), but prior to the surgery/procedure. No significant changes from prior H&P other than overnight catheter clotted and infusion was stopped. Here for followup angiogram and removal of endovascular thrombolysis system. H&P update: H&P reviewed & patient examined, no change in patient's condition since H&P completed
[2018-06-10] MEDS ORDERED: NS 1,000 ML IV SCH (09:00)
--- NOTE | 2018-06-10 09:07 | PDRADPN ---
Radiology Procedure Note Date of Procedure: 06/10/18 Radiologist: Doe Padilla Anesthesia: IV Sedation Pre-op Diagnosis: Clotted right SFA-ALYCE graft Post-op Diagnosis: Clotted right SFA-ALYCE graft Indication: S/P catheter directed tPA thrombolysis Procedure: RLE angiography Finding(s): Mutlisidehole infusion catheter clotted overnight and unable to infuse. Catheter was removed without injecting into it given no blood return. RLE angiography via sheath demonstrates complete occlusion of SFA-ALYCE graft. No active extravasation was seen at this time. Widely patent reconstituted peroneal artery to foot via well developed collaterals. Given 2 days of catheter directed therapy and hemorrhage/active extravasation at graft ALYCE anastomosis, further tPA is contraindicated. Recomend surgical revision given complete rethrombosis of graft and failed endovascular thrombolysis as clinically warranted. Please see separately dictated radiology report for further details. Inf/Abcess present in the surg proc area at time of surgery?: No
[2018-06-10] MEDS ORDERED: HEPARIN 10,000 UNIT/10 ML MDV (1,000 UNIT/ML) IVP PRN (09:40)
[2018-06-10] MEDS ORDERED: HEPARIN/DEXTROSE 500 ML IV SCH (10:00)
[2018-06-10] MEDS: APIXABAN 5 MG TAB PO SCH (10:27)
--- NOTE | 2018-06-10 10:51 | SOAPPROG ---
SOAP Progress Note Assessment/Plan: Assessment:no new overnight issues. pain controlled. catheter clotted - on systemic heparin. avss. comfortable. leg incisions clean. foot pink, warm. calf compartments soft. for repeat angio today. will continue heparin and coumadin per heme reccs. hypercoaguable state despite multiple various anti- coagulants with secondary poor graft outflow at level of foot contributing to recurrent graft failure. will likely be non-salvageable at this time. fortunately, he will not be in limb threat rather an ongoing claudicator. patient seen on rounds and throughout IR treatment. continuing to clot graft. run off better than yesterday. small extrav noted at distal anast upon completion of his procedure today. sheath left beyond distal anast with continued heparin. postop exam with soft anterior compartment and no active bleeding through wound. mid thigh hematoma evacuated - no active bleeding here at this time. foot pink and warm. will continue heparin through infusion catheter acting as a stent beyond his distal anast extrav site tonight. discussed anti-coag plan with dr. rivera - leaning toward returning to coumadin. plan reviewed at length with patient and friend at bedside. Plan: 06/09/18 17:28 06/10/18 10:47 Objective: Vital Signs Temp Pulse Resp BP Pulse Ox 36.8 C 81 16 98/62 L 98 06/10/18 05:59 06/10/18 05:59 06/10/18 05:59 06/10/18 08:45 06/10/18 08:46 Laboratory Results 06/10/18 00:30 06/10/18 04:50 06/09/18 06/10/18 06/11/18 05:59 05:59 05:59 Intake Total 20062 Output Total 800 2990 375 Balance 1207 -1198 -375 PT 14.5 SEC (12.0-15.0) 06/08/18 11:00 INR 1.11 (0.83-1.16) 06/08/18 11:00 ICD10 Worksheet Patient Problems: Problems Problem Status Onset Aneurysm of heart Acute Arterial embolism of right leg Acute Coronary stent patent Acute Left ventricular thrombus without [place] Acute Right leg pain Acute
[2018-06-10] MEDS: METOPROLOL TARTRATE 25 MG TAB PO SCH ×2 (11:07→20:08)
[2018-06-10] MEDS: ASPIRIN 81 MG CHEWABLE TAB PO SCH (11:22)
[2018-06-10] MEDS ORDERED: oxyCODONE IR 5 MG TAB PO PRN (12:58)
[2018-06-10] MEDS ORDERED: IOPAMIDOL (ISOVUE-300) 100 ML BTL ONE (13:05)
--- NOTE | 2018-06-10 15:29 | GCON ---
INPATIENT HEMATOLOGY CONSULTATION DATE OF CONSULTATION: 06/10/2018 REQUESTING PHYSICIANS: Dr. Nahid Wang. REASON FOR CONSULTATION: Recurrent thrombosis. HISTORY OF PRESENT ILLNESS: Elliott Betancourt is a 48-year-old man with a history of recurrent thrombosis. I evaluated him back in November. He has a remote history of myocardial infarction resulting in left ventricular dilation in the formation of a cardiac thrombus. He was on Coumadin for a number of years with a somewhat labile INR. Ultimately, he underwent thrombectomy and revision of his right ventricle in October 2017. He also in that setting had an embolic event to the right superficial femoral artery. He had been switched in August 2017 to Xarelto due to lability of his INR. In any event, at the time of my evaluation he was back on Coumadin. I sent an extensive hypercoagulable workup including factor V Leiden abnormality, anticardiolipin antibodies, lupus anticoagulant, antithrombin 3 level, JAK2 mutation analysis, and flow cytometry for paroxysmal nocturnal hemoglobinuria, all of which were normal. I recommended continuing with his current anticoagulation. He was then at some point changed back to Eliquis. Recently at the end of April, Dr. Wang did a bypass graft for his right leg to try to perfuse it. He returned 2 weeks later with thrombosis in the graft, as well as a right superficial venous thrombosis. Currently, he is on heparin. I am asked to assist in his anticoagulation management. PAST MEDICAL HISTORY: 1. Remote history of myocardial infarction. 2. ICD placement. CURRENT MEDICATIONS: Aspirin, Lipitor, gabapentin, IV heparin, Lopressor, warfarin. ALLERGIES: He has no known drug allergies. FAMILY HISTORY: No family history of thrombosis. SOCIAL HISTORY: He is a former smoker and occasional alcohol use. REVIEW OF SYSTEMS: Aside from pertinent positives noted in HPI, a 14-point review of systems is negative. PHYSICAL EXAMINATION: VITAL SIGNS: His temperature is 36.8, blood pressure 96/ 59, pulse 82, oxygen saturation 98% on 2 L. GENERAL: He is in no acute distress. His sclerae are anicteric. Oropharynx is clear. NECK: Supple without lymphadenopathy. LUNGS: Clear to auscultation bilaterally. CARDIAC: Regular rate and rhythm. No murmurs, gallops, rubs. ABDOMEN: Normoactive bowel sounds. Nontender. EXTREMITIES: 1+ edema of the right leg with weak pedal pulses. There is no evidence of cyanosis. NEUROLOGIC: He is alert and oriented x3. Strength and sensation are grossly intact. IMPRESSION: This is a 48-year-old man with a history of recurrent thrombosis. Most recently, he clotted off his bypass graft in his right leg. The initial thrombotic events were likely secondary to his myocardial infarction and left ventricular dilation, though it should be noted that he had a recurrent thrombosis in the left ventricle even after surgery to reduce the size of the ventricle. There certainly is some suspicion for a hypercoagulable state, though nothing has been identified yet. In terms of further diagnostic workup, I will send some additional tests that were not initially checked including protein C, protein S, prothrombin gene mutation, and beta 2 glycoprotein antibodies. Whether or not these tests are positive though, I would recommend that he be changed to Coumadin with a target INR of 2.5 to 3.5 and to institute home monitoring so we can have tighter control of the INR. There are cases described with particularly younger patients with good renal function who clear the novel anticoagulants such as Xarelto and Eliquis too quickly and therefore have brief periods of subtherapeutic levels which can predispose him to thrombosis. It is not clear to me if that is what is happening in this case. I think to be safe Coumadin would be a better option for him. If he needs help arranging for INR monitoring, he is certainly welcome to contact me in the outpatient setting or he will arrange this through his cardiac surgeon or primary care provider. If any additional blood work from today shows an inherited abnormality, I will certainly call him and discuss its implications, though likely the anticoagulation plan will be the same. Thank you for this consultation. It is a pleasure to see Mr. Betancourt and appreciate the opportunity to be involved in his care. /[id number]/MODL MTDD
[2018-06-10] MEDS: oxyCODONE IR 5 MG TAB PO PRN ×3 (16:00→19:53)
[2018-06-10] MEDS ORDERED: WARFARIN SODIUM 5 MG TAB PO ONE (16:00)
[2018-06-10] MEDS: GABAPENTIN 300 MG CAP PO SCH (19:53)
[2018-06-10] MEDS: ATORVASTATIN CALCIUM 20 MG TAB PO SCH (19:54)
[2018-06-11] MEDS: oxyCODONE IR 5 MG TAB PO PRN ×6 (00:10→20:33)
[2018-06-11] MEDS: LORazepam 1 MG TAB PO PRN ×2 (00:11→05:02)
[2018-06-11] MEDS: ZOLPIDEM TARTRATE 5 MG TAB PO PRN ×2 (00:15→21:42)
[2018-06-11] MEDS: DEXMEDETOMIDINE HCL 400 MCG in NS 100 ML IV SCH (02:22)
[2018-06-11 05:45] LABS: INR 1.31 (0.83-1.16); PROTIME(PATIENT) 16.5 SEC (12.0-15.0)
[2018-06-11] MEDS: ACETAMINOPHEN 325 MG TAB PO PRN ×2 (07:53→17:35)
[2018-06-11] MEDS: METOPROLOL TARTRATE 25 MG TAB PO SCH ×2 (07:54→20:34)
[2018-06-11] MEDS: ASPIRIN 81 MG CHEWABLE TAB PO SCH (07:54)
[2018-06-11 08:22] LABS: PLATELET COUNT 294 10^3/uL (150-400)
--- NOTE | 2018-06-11 12:44 | PDINTPN ---
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 He has also had recurrent peripheral arterial thrombosis without known hypercoaguable state despite thorough hematology work up. He underwent fem-tib bypass complicated by recurrent thrombosis and had a trial of TPA which was largely unsuccessful. * Recurrent arterial thrombosis- now on UFH and coumadin with currently subtherapeutic INR. Defer to hematology for management. He has had occasional difficulty with VKAs in the past, but did use it successfully for 10 years. Other alternatives include chronic LMWH (eg lovenox or fragmin) should coumadin fail, as in cancer patients. * LE pain- off and on stability. Currently on [place], precedex, gabapentin qhs, morphine prn, oxycodone. Could consider Ultram to minimize opiate requirement Subjective: stable overnight though still with significant pain on precedex Objective: Vital Signs Temp Pulse Resp BP Pulse Ox 36.9 C 86 17 115/76 94 06/11/18 11:22 06/11/18 11:22 06/11/18 11:22 06/11/18 11:22 06/11/18 11:22 Laboratory Results 06/11/18 08:10 06/10/18 04:50 06/10/18 06/11/18 06/12/18 05:59 05:59 05:59 Intake Total 1792 1348 Output Total 2990 1955 Balance -1198 -607 PT 16.5 SEC (12.0-15.0) H 06/11/18 05:10 INR 1.31 (0.83-1.16) H 06/11/18 05:10 Physical Exam - Physical Exam General Appearance: alert, no apparent distress EENT: PERRL/EOMI Neck: supple Respiratory: lungs clear, normal breath sounds, No respiratory distress, No accessory muscle use Cardiac/Chest: regular rate, rhythm, edema Abdomen: non-tender, soft, No distended Skin: No cyanosis Lymphatic: no adenopathy Extremities: No pedal edema Neuro/Psych: alert, normal mood/affect, oriented x 3 ICD10 Worksheet Patient Problems: Problems Problem Status Onset Aneurysm of heart Acute Arterial embolism of right leg Acute Coronary stent patent Acute Left ventricular thrombus without [place] Acute Right leg pain Acute
--- NOTE | 2018-06-11 13:41 | SOAPPROG ---
SOAP Progress Note Assessment/Plan: Assessment:apprec heme consult. c/o ongoing leg pain - hip to foot. no other concerns. avss. comfortable when lying still - painful to move leg. incisions all clean. large new hematomas post TPA thigh and anterior leg - drained with immediate relief of thigh and leg discomfort. medial leg seroma drained with qtip as well. foot pink. slow progress. will increase gabapentin. add valium for leg spasm/immobility [id number]. PT to see. switch to lovenox with coumadin. hopeful discharge this weekend. no new overnight issues. pain controlled. catheter clotted - on systemic heparin. avss. comfortable. leg incisions clean. foot pink, warm. calf compartments soft. for repeat angio today. will continue heparin and coumadin per heme reccs. hypercoaguable state despite multiple various anti-coagulants with secondary poor graft outflow at level of foot contributing to recurrent graft failure. will likely be non-salvageable at this time. fortunately, he will not be in limb threat rather an ongoing claudicator. patient seen on rounds and throughout IR treatment. continuing to clot graft. run off better than yesterday. small extrav noted at distal anast upon completion of his procedure today. sheath left beyond distal anast with continued heparin. postop exam with soft anterior compartment and no active bleeding through wound. mid thigh hematoma evacuated - no active bleeding here at this time. foot pink and warm. will continue heparin through infusion catheter acting as a stent beyond his distal anast extrav site tonight. discussed anti-coag plan with dr. rivera - leaning toward returning to coumadin. plan reviewed at length with patient and friend at bedside. Plan: 06/09/18 17:28 06/10/18 10:47 06/11/18 13:39 Objective: Vital Signs Temp Pulse Resp BP Pulse Ox 36.9 C 86 17 115/76 94 06/11/18 11:22 06/11/18 11:22 06/11/18 11:22 06/11/18 11:22 06/11/18 11:22 Laboratory Results 06/11/18 08:10 06/10/18 04:50 06/10/18 06/11/18 06/12/18 05:59 05:59 05:59 Intake Total 1792 1348 Output Total 2990 1955 Balance -1198 -607 PT 16.5 SEC (12.0-15.0) H 06/11/18 05:10 INR 1.31 (0.83-1.16) H 06/11/18 05:10 ICD10 Worksheet Patient Problems: Problems Problem Status Onset Aneurysm of heart Acute Arterial embolism of right leg Acute Coronary stent patent Acute Left ventricular thrombus without [place] Acute Right leg pain Acute
[2018-06-11] MEDS: ENOXAPARIN 80 MG/0.8 ML SYR SC SCH ×2 (14:27→20:36)
--- NOTE | 2018-06-11 15:41 | ASMTCMCOM ---
CM Note CM Note Notes: Spoke with about patient. He has drained new large hematomas which gave patient some immediate pain relief. Dr. Wang will be treating patient with gabapentin and valium as the patient's pain is muscular. PT evaluated and recommends home for the patient with no needs. CM available if d/c needs arise. Date Signed: 06/11/2018 03:40 PM Electronically Signed By:Lisa Clark LCSW
[2018-06-11] MEDS ORDERED: WARFARIN SODIUM 5 MG TAB PO ONE (16:15)
[2018-06-11] MEDS: GABAPENTIN 300 MG CAP PO SCH ×2 (16:15→21:41)
[2018-06-11] MEDS ORDERED: MAGNESIUM HYDROXIDE 30 ML UDCUP PO PRN (16:20)
[2018-06-11] MEDS ORDERED: BISACODYL 10 MG SUPP PR PRN (16:20)
[2018-06-11] MEDS ORDERED: LACTULOSE 20 GM/30 ML UDCUP PO PRN (16:20)
[2018-06-11] MEDS ORDERED: POLYETHYLENE GLYCOL 3350 17 GM PKT PO PRN (16:20)
[2018-06-11] MEDS: DIAZEPAM 5 MG TAB PO SCH ×2 (17:35→23:47)
[2018-06-11] MEDS: ATORVASTATIN CALCIUM 20 MG TAB PO SCH (20:32)
[2018-06-11] MEDS: SENNOSIDES/DOCUSATE SODIUM TAB PO SCH (20:35)
[2018-06-11] MEDS: FAMOTIDINE 20 MG TAB PO PRN (21:44)
[2018-06-12] MEDS: oxyCODONE IR 5 MG TAB PO PRN ×7 (01:59→23:37)
[2018-06-12] MEDS: DIAZEPAM 5 MG TAB PO SCH ×4 (05:42→23:38)
[2018-06-12 06:43] LABS: INR 2.56 (0.83-1.16); PROTIME(PATIENT) 27.5 SEC (12.0-15.0)
[2018-06-12] MEDS: METOPROLOL TARTRATE 25 MG TAB PO SCH ×2 (09:07→19:49)
[2018-06-12] MEDS: ENOXAPARIN 80 MG/0.8 ML SYR SC SCH ×2 (09:07→19:50)
[2018-06-12] MEDS: GABAPENTIN 300 MG CAP PO SCH ×3 (09:07→20:34)
[2018-06-12] MEDS: SENNOSIDES/DOCUSATE SODIUM TAB PO SCH ×2 (09:08→19:49)
[2018-06-12] MEDS: ASPIRIN 81 MG CHEWABLE TAB PO SCH (09:08)
--- NOTE | 2018-06-12 10:02 | SOAPPROG ---
CARY Progress Note Assessment/Plan: Assessment/Plan: 48-year-old gentleman status post superior femoral artery to anterior tibial bypass with reverse saphenous vein. Patient has hypercoagulability which has resulted in graft failure. Salvage attempts with tPA resulted in multiple hematomas which have been evacuated. Pain is much better today. He still has ankle and right foot pain. Seen in consultation by Dr. Echeverria hematology who has recommended Coumadin restarting. Question of additional Lovenox at home or antiplatelet agents have been considered. His INR today is 2.5 goal is between 2.5 and 3.5. He has been on Coumadin before but will need outpatient monitoring of this which is not yet been arranged. Incisions clean and dry today. No active drainage. Foot pink warm. Will arrange for discharge in the next 24 hr as long his Coumadin and INR can be arranged. Will discuss with multi distally care team whether to at anti platelet agent or noac to this regimen. 06/12/18 09:59 Objective: Vital Signs Temp Pulse Resp BP Pulse Ox 37.2 C 146 H 14 103/71 96 06/12/18 07:56 06/12/18 09:25 06/12/18 07:56 06/12/18 09:25 06/12/18 07:56 Laboratory Results 06/11/18 08:10 06/10/18 04:50 06/11/18 06/12/18 06/13/18 05:59 05:59 05:59 Intake Total 1348 2080 Output Total 1955 2350 Balance -607 -270 PT 27.5 SEC (12.0-15.0) H 06/12/18 05:28 INR 2.56 (0.83-1.16) H 06/12/18 05:28 ICD10 Worksheet Patient Problems: Problems Problem Status Onset Aneurysm of heart Acute Arterial embolism of right leg Acute Coronary stent patent Acute Left ventricular thrombus without [place] Acute Right leg pain Acute
--- NOTE | 2018-06-12 12:11 | PDINTPN ---
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 He has also had recurrent peripheral arterial thrombosis without known hypercoaguable state despite thorough hematology work up. He underwent fem-tib bypass complicated by recurrent thrombosis and had a trial of TPA which was largely unsuccessful. * Recurrent arterial thrombosis- now on UFH and coumadin with currently therapeutic INR (goal 2.5-3.5). Defer to hematology for management. He has had occasional difficulty with VKAs in the past, but did use it successfully for 10 years. Other alternatives include chronic LMWH (eg lovenox or fragmin) should coumadin fail, as in cancer patients. * LE pain- off and on stability. Currently on [place], precedex, gabapentin qhs, morphine prn, oxycodone. Could consider Ultram to minimize opiate requirement * Hematoma- stable * agreee with at least downgrade to med/surg if not dc home. I'll sign off Subjective: no events Objective: Vital Signs Temp Pulse Resp BP Pulse Ox 37.2 C 91 11 L 119/83 H 92 06/12/18 11:27 06/12/18 11:27 06/12/18 11:27 06/12/18 11:27 06/12/18 11:27 Laboratory Results 06/11/18 08:10 06/10/18 04:50 06/11/18 06/12/18 06/13/18 05:59 05:59 05:59 Intake Total 1348 2080 Output Total 1955 2350 400 Balance -607 -270 -400 PT 27.5 SEC (12.0-15.0) H 06/12/18 05:28 INR 2.56 (0.83-1.16) H 06/12/18 05:28 Physical Exam - Physical Exam General Appearance: alert, no apparent distress EENT: PERRL/EOMI Neck: supple Respiratory: lungs clear, normal breath sounds, No respiratory distress, No accessory muscle use Cardiac/Chest: regular rate, rhythm, No edema Abdomen: non-tender, soft, No distended Skin: normal color, warm/dry, No cyanosis Lymphatic: no adenopathy Extremities: No pedal edema Neuro/Psych: alert, normal mood/affect, oriented x 3 ICD10 Worksheet Patient Problems: Problems Problem Status Onset Aneurysm of heart Acute Arterial embolism of right leg Acute Coronary stent patent Acute Left ventricular thrombus without AL Acute Right leg pain Acute
[2018-06-12] MEDS: ATORVASTATIN CALCIUM 20 MG TAB PO SCH (19:48)
[2018-06-12] MEDS: FAMOTIDINE 20 MG TAB PO PRN (20:33)
[2018-06-12] MEDS: LORazepam 1 MG TAB PO PRN (23:37)
[2018-06-13] MEDS: LORazepam 1 MG TAB PO PRN (04:56)
[2018-06-13] MEDS: oxyCODONE IR 5 MG TAB PO PRN ×5 (04:56→22:15)
[2018-06-13] MEDS: DIAZEPAM 5 MG TAB PO SCH ×4 (04:56→22:18)
[2018-06-13 06:02] LABS: INR 2.08 (0.83-1.16); PROTIME(PATIENT) 23.4 SEC (12.0-15.0)
[2018-06-13] MEDS: ASPIRIN 81 MG CHEWABLE TAB PO SCH (07:59)
[2018-06-13] MEDS: ENOXAPARIN 80 MG/0.8 ML SYR SC SCH ×2 (07:59→22:20)
[2018-06-13] MEDS: METOPROLOL TARTRATE 25 MG TAB PO SCH ×2 (08:00→22:17)
[2018-06-13] MEDS: SENNOSIDES/DOCUSATE SODIUM TAB PO SCH ×2 (08:00→22:16)
[2018-06-13] MEDS: GABAPENTIN 300 MG CAP PO SCH ×3 (08:04→22:17)
--- NOTE | 2018-06-13 08:30 | SOAPPROG ---
CARY Progress Note Assessment/Plan: Assessment/Plan: 48-year-old gentleman status post superior femoral artery to anterior tibial bypass with reverse saphenous vein. Patient has hypercoagulability which has resulted in graft failure. Salvage attempts with tPA resulted in multiple hematomas which have been evacuated. Pain is much better today. He still has ankle and right foot pain. Seen in consultation by Dr. Echeverria hematology who has recommended Coumadin restarting. Question of additional Lovenox at home or antiplatelet agents have been considered. His INR today is 2.08 goal is between 2.5 and 3.5. He has been on Coumadin before but will need outpatient monitoring of this which is not yet been arranged. Incisions clean and dry today. No active drainage. Foot pink warm. Will arrange for discharge in the next 24-48 hr as long his Coumadin and INR can be arranged. Will discuss with multi distally care team whether to add anti platelet agent or noac to this regimen. Sub therapeutic INR today will discuss with pharmacy possibility increasing does or holding off till tomorrow 06/12/18 09:59 06/13/18 08:29 Objective: Vital Signs Temp Pulse Resp BP Pulse Ox 36.6 C 107 H 16 138/96 H 92 06/13/18 08:00 06/13/18 08:00 06/13/18 08:00 06/13/18 08:00 06/13/18 08:00 Laboratory Results 06/11/18 08:10 06/10/18 04:50 06/12/18 06/13/18 06/14/18 05:59 05:59 05:59 Intake Total 2080 1100 Output Total 2350 1950 Balance -270 -850 PT 23.4 SEC (12.0-15.0) H 06/13/18 04:50 INR 2.08 (0.83-1.16) H 06/13/18 04:50 ICD10 Worksheet Patient Problems: Problems Problem Status Onset Aneurysm of heart Acute Arterial embolism of right leg Acute Coronary stent patent Acute Left ventricular thrombus without [place] Acute Right leg pain Acute
[2018-06-13] MEDS ORDERED: WARFARIN SODIUM 7.5 MG TAB PO ONE (16:00)
[2018-06-13] MEDS: ATORVASTATIN CALCIUM 20 MG TAB PO SCH (22:15)
[2018-06-14] MEDS: ACETAMINOPHEN 325 MG TAB PO PRN (03:58)
[2018-06-14] MEDS: oxyCODONE IR 5 MG TAB PO PRN ×3 (03:58→14:26)
[2018-06-14] MEDS: DIAZEPAM 5 MG TAB PO SCH ×2 (03:59→09:29)
[2018-06-14 05:18] LABS: INR 2.49 (0.83-1.16); PROTIME(PATIENT) 26.9 SEC (12.0-15.0)
[2018-06-14] MEDS: ENOXAPARIN 80 MG/0.8 ML SYR SC SCH (09:28)
[2018-06-14] MEDS: SENNOSIDES/DOCUSATE SODIUM TAB PO SCH (09:29)
[2018-06-14] MEDS: GABAPENTIN 300 MG CAP PO SCH (09:29)
[2018-06-14] MEDS: METOPROLOL TARTRATE 25 MG TAB PO SCH (09:29)
[2018-06-14] MEDS: ASPIRIN 81 MG CHEWABLE TAB PO SCH (09:29)
[2018-06-14] MEDS ORDERED: METOPROLOL TARTRATE 25 MG TAB PO ONE (10:15)
[2018-06-14 11:57] VITALS: BP 118/73
--- NOTE | 2018-06-14 13:35 | PDIAF ---
- Diagnosis Diagnosis: Peripheral vascular disease Code Status: Full Code - Medication Management Discharge Medications: electronically signed and located in the Home Medication List. PICC Care - Routine: N/A - Orders Services needed: Physical Therapy (Pt will need walker) Diet Recommendation: no restrictions on diet Diet Texture: Regular Texture Diet Additional Instructions: May shower, wash incisions with warm water and soap. No activity restrictions- prescription for home PT and walker provided. Increase metoprolol to 25mg daily. Check blood pressure and pulse at home daily. Prescriptions provided for oxycodone, gabapentin, Valium, and Coumadin. Take 7.5mg Coumadin Thursday and Thursday, take 5mg Coumadin Thursday. Follow up in Coumadin clinic ([facility]) and [facility] (Dr. Wang) this . Adjust Coumadin dose as directed by Coumadin clinic. Call to schedule appointments for both. Call with fevers, wound concerns, cold foot, other questions or concerns. - Follow Up Care Current Providers and Referrals: ROGER BEAULIEU MD [Primary Care Provider] - Nahid Wang MD [Medical Doctor] - 06/17/18 (Call to schedule appointment on 06/17/18)
--- NOTE | 2018-06-14 13:37 | SOAPPROG ---
SOAP Progress Note Assessment/Plan: Assessment: pain better controlled overall. anterior leg pain with ambulation mostly. INR 2.5 today. Tm 38.7. [id number]. comfortable. incisions all clean. left thigh hematoma resolved. medial leg seroma improved. anterior leg incision clean with appropriate eccyhmosis. distal leg embolic changes anterior leg skin above ankle with tenderness. compartments all soft. slow progress. will maintain on Coumadin indefinitely for now with coumadin clinic follow-up later this week (later reviewed with dr. adame - will consider additional antiplatelet in outpatient setting). will continue neurontin, valium and oxycodone. anticipate ongoing leg discomfort secondary to lysis showering - this is the likely source of his fever last evening. will increase lopressor for tachycardia. will see back on with INR prior. will discharge with walker to help with ambulation +/- home PT. apprec heme consult. c/o ongoing leg pain - hip to foot. no other concerns. avss. comfortable when lying still - painful to move leg. incisions all clean. large new hematomas post TPA thigh and anterior leg - drained with immediate relief of thigh and leg discomfort. medial leg seroma drained with qtip as well. foot pink. slow progress. will increase gabapentin. add valium for leg spasm/immobility [id number]. PT to see. switch to lovenox with coumadin. hopeful discharge this weekend. no new overnight issues. pain controlled. catheter clotted - on systemic heparin. avss. comfortable. leg incisions clean. foot pink, warm. calf compartments soft. for repeat angio today. will continue heparin and coumadin per heme reccs. hypercoaguable state despite multiple various anti-coagulants with secondary poor graft outflow at level of foot contributing to recurrent graft failure. will likely be non-salvageable at this time. fortunately, he will not be in limb threat rather an ongoing claudicator. patient seen on rounds and throughout IR treatment. continuing to clot graft. run off better than yesterday. small extrav noted at distal anast upon completion of his procedure today. sheath left beyond distal anast with continued heparin. postop exam with soft anterior compartment and no active bleeding through wound. mid thigh hematoma evacuated - no active bleeding here at this time. foot pink and warm. will continue heparin through infusion catheter acting as a stent beyond his distal anast extrav site tonight. discussed anti-coag plan with dr. rivera - leaning toward returning to coumadin. plan reviewed at length with patient and friend at bedside. Plan: 06/09/18 17:28 06/10/18 10:47 06/11/18 13:39 06/14/18 13:33 Objective: Vital Signs Temp Pulse Resp BP Pulse Ox 36.6 C 93 16 118/73 95 06/14/18 11:56 06/14/18 11:56 06/14/18 11:56 06/14/18 11:56 06/14/18 11:56 Laboratory Results 06/11/18 08:10 06/10/18 04:50 06/13/18 06/14/18 06/15/18 05:59 05:59 05:59 Intake Total 1100 Output Total 1950 1100 Balance -850 -1100 PT 26.9 SEC (12.0-15.0) H 06/14/18 04:30 INR 2.49 (0.83-1.16) H 06/14/18 04:30 ICD10 Worksheet Patient Problems: Problems Problem Status Onset Aneurysm of heart Acute Arterial embolism of right leg Acute Coronary stent patent Acute Left ventricular thrombus without NE Acute Right leg pain Acute
--- NOTE | 2018-06-14 14:22 | ASMTCMCOM ---
CM Note CM Note Notes: CM discussed with RN, patient likely to discharge tomorrow, focus is anti-coagulation therapy. Patient likely to discharge home independent tomorrow. CM to follow. Current D/C Plan: IND 06/14 Date Signed: 06/13/2018 03:20 PM Electronically Signed By:Gladys Mera
--- NOTE | 2018-06-14 14:35 | GDS ---
REASON FOR ADMISSION: Hypercoagulability, leg artery occlusion. HOSPITAL COURSE: A 48-year-old male with a significant history for primary myocardial infarction mul tiple years ago resultant in a cardiomyopathy. The patient initially presented with progressive righ t leg pain secondary to a large cardiac-based thromboembolus with SFA and runoff level occlusions. H e was managed with anticoagulation while undergoing open heart surgery and thrombus removal. Despite full anticoagulation, his cardiac thrombus recurred postoperatively. He had been maintained on nove l oral anticoagulant agents, along with stabilization of his cardiac thrombus. He was taken to the o perating room 2 weeks ago for an attempted femoral to anterior tibial artery bypass with a reverse sa phenous vein. The patient presented to the office in followup with a graft occlusion. He was admitt ed for therapy. Despite multiple attempts at clot lysis, the patient continued to recurre ntly clot despite full anticoagulation and widely patent proximal and distal anastomoses. His graft failure was felt secondary to poor outflow in the setting of progressive hypercoagulability on chroni c anticoagulation. His graft was unable to be salvaged. The patient's postoperative course was nota ble for lytic-associated wound site hematomas, which were easily evacuated at bedside. He was seen i n consultation by Dr. Echeverria from the hematology service, who recommended returning back to [facility] with maintenance of a higher INR threshold. Additional hypercoagulable studies were obtained, whic h were pending upon discharge. The patient was discharged to home on the in improved condition. He was using a walker for assistance as he was regaining his right leg strength. The patient still had evidence of microemboli from his lysis therapy, impeding some of his recovery. He was to resume all pre-hospital medications. His Lopressor was increased from 12.5 to 25 mg. His Coumadin was lef t at 7.5 mg, with plans to follow up with the Coumadin Clinic at [facility] on . His sanket pentin was increased from 300 mg daily to 300 mg 3 times daily, along with Valium and oxycodone for b reakthrough pain. The patient will continue to monitor his heart rate and pulse at home. He will be making efforts to obtaining an INR monitor for closer monitoring in the outpatient setting. Care pl an was reviewed with Dr. Aguilar prior to discharge. Full activity instructions were explained to the p atient prior to leaving. Copy requested to: Liza Montanez /[id number]/MODL
--- NOTE | 2018-06-14 14:47 | ASMTLACE ---
LACE Length of stay for Answers: 4-6 days current admission Acuity / Level of Answers: Yes Care: Did the patient have an inpatient admission? Comorbidities - select Answers: Congestive heart failure all that apply Coronary Artery Disease Opioid dependence / Chronic pain Previous myocardial infarction # of Emergency department Answers: 0 visits in the last 6 months Score: 16 Date Signed: 06/14/2018 02:45 PM Electronically Signed By:ANT Pak
--- NOTE | 2018-06-14 14:59 | ASDISCHSUM ---
Discharge Information Plan Status:Home with Home Health Medically Cleared to Leave:06/13/2018 Discharge Date:06/13/2018 CM D/C Disposition: ADT D/C Disposition:Home, Routine, Self-Care Projected Discharge Date:06/14/2018 11:00 AM Transportation at D/C: Discharge Delay Reason: Follow-Up Date:06/14/2018 11:00 AM Discharge Slot: Final Diagnosis: Placement Information Referral Type:*Home Health Care Services Referral ID:[id number] Provider Name:[facility] Address 1:[address] [address] Address 2: City:[place] Selection Factors: State:[place] Patient Contact Information Contact Name:YONMARKOSLADE Relationship: Address: Work Phone: City: [facility] Phone: [facility] Code: Email: Financial Information Financial Class:HMO and PPO Plans Primary Plan Desc:DAVID PPO POS HMO SIG ADM Primary Plan Number:[id number] Secondary Plan Desc: Secondary Plan Number: Assessment Information LACE LACE Length of stay for Answers: 4-6 days current admission Acuity / Level of Answers: Yes Care: Did the patient have an inpatient admission? Comorbidities - select Answers: Congestive heart failure all that apply Coronary Artery Disease Opioid dependence / Chronic pain Previous myocardial infarction # of Emergency department Answers: 0 visits in the last 6 months Score: 16 Date Signed: 06/14/2018 02:45 PM Electronically Signed By:ANT Pak [facility] Progress Note CM Note CM Note Notes: Chart reviewed for discharge planning purposes. patient is a 48 year old male who recently underwent a right femoral to tibial artery bypass that has re-occluded. He will go for urgent embolization then likely go to the ICU post procedure. Previously discharged to home without needs. No needs anticipated at this time. CM available should needs change. Plan: Dc to home when medically stable. Date Signed: 06/08/2018 04:11 PM Electronically Signed By:Sanna Conti RN [facility] CM Progress Note CM Note CM Note Notes: Spoke with about patient. He has drained new large hematomas which gave patient some immediate pain relief. Dr. Wang will be treating patient with gabapentin and valium as the patient's pain is muscular. PT evaluated and recommends home for the patient with no needs. CM available if d/c needs arise. Date Signed: 06/11/2018 03:40 PM Electronically Signed By:Lisa Clark LCSW [facility] CM Progress Note CM Note CM Note Notes: CM discussed with RN, patient likely to discharge tomorrow, focus is anti-coagulation therapy. Patient likely to discharge home independent tomorrow. CM to follow. Current D/C Plan: IND 06/14 Date Signed: 06/13/2018 03:20 PM Electronically Signed By:Gladys Mera Case Management Discharge Plan Note Case Management Discharge Discharge Order Complete? Answers: Yes Patient to Obtain Answers: Independently Medications Transportation Arranged Answers: Family/Friends EMTALA Complete Answers: No Case Management Transport Answers: No Form Complete Faxed Final Orders Answers: Yes Agency/Facility Transfer Answers: Yes Report Printed & Faxed to Receiving Agency Family Notified Answers: Yes Discharge Comments Notes: Pts case discussed w/ VU Morrison and ANTHONY Dunn. Pt is being d/c today. It is recommended pt has PT when he goes home. CM met w/ pt and discussed this w/ pt. Pt is agreeable to having HC. Multiple HC referrals sent. [facility] is able to accept. DC orders sent. Pt will f/u at the [facility] on . Mona went over follow up instructions w/ pt. CM available for changes. Plan: ; PT Date Signed: 06/14/2018 02:58 PM Electronically Signed By:ANT Pak Intervention Information
[2018-06-14] MEDS ORDERED: WARFARIN SODIUM 5 MG TAB PO ONE (16:00)
[2018-06-14] MEDS ORDERED: METOPROLOL TARTRATE 25 MG TAB PO SCH (21:00)
== END 2018-06-14 14:25 | disposition home health service (06) | DRG 315 ==
LOC: F3E 10:25 → F2N 18:10 → F3E 06-12 15:09
PROVIDERS: ADMIT Surgery; ATTEND Surgery
DX: T82.868A Thrombosis due to vascular prosthetic devices, implants and grafts, initial encounter (principal); L76.32 Postprocedural hematoma of skin and subcutaneous tissue following other procedure; I10 Essential (primary) hypertension; I25.2 Old myocardial infarction; K21.9 Gastro-esophageal reflux disease without esophagitis; Z79.01 Long term (current) use of anticoagulants; Z95.810 Presence of automatic (implantable) cardiac defibrillator; Z86.73 Personal history of transient ischemic attack (TIA), and cerebral infarction without residual deficits; Z86.718 Personal history of other venous thrombosis and embolism
CPT/HCPCS: 85303-90; 85306-90; 85520-90; 97162-GP; 97530-GP; C1725; C1757; C1760; C1769; C1892; C1894; J0130; J1644; J1650; J2250; J2270; J2310; J2997; J3010; Q9967

== ENCOUNTER 2018-06-17 11:21 | Inpatient (IN) | payer OTHER ==
[2018-06-17 12:31] LABS: PLATELET COUNT 471 10^3/uL (150-400)
[2018-06-17] MEDS ORDERED: HEPARIN/DEXTROSE 500 ML IV ONE (12:49)
[2018-06-17] MEDS ORDERED: fentaNYL 100 MCG/2 ML INJ IVP ONE (12:50)
--- NOTE | 2018-06-17 12:54 | EDPHY ---
H & P Stated Complaint: RLE redness and pain Time Seen by Provider: 06/17/18 11:45 HPI/ROS: CHIEF COMPLAINT: Ischemic leg HISTORY OF PRESENT ILLNESS: The patient has a history of a hypercoagulable condition presents to the emergency department with symptoms worrisome for ischemic leg including coolness and severe pain. The patient recently underwent an arterial graft by Dr. Nahid Wang. He is currently anticoagulated with Coumadin. The patient has a history of a intracardiac thrombus and a severe hypercoagulable state of uncertain etiology. The patient had been doing well postoperatively per presents to the ED today complaining of a cool right foot and severe pain. REVIEW OF SYSTEMS: A comprehensive 10 point review of systems is otherwise negative aside from elements mentioned in the history of present illness. Source: Patient - Personal History Current Tetanus/Diphtheria Vaccine: Yes Current Tetanus Diphtheria and Acellular Pertussis (TDAP): Yes - Medical/Surgical History Hx Asthma: No Hx Chronic Respiratory Disease: No Hx Diabetes: No Hx Cardiac Disease: Yes Hx Renal Disease: No Hx Cirrhosis: No Hx Alcoholism: No Hx HIV/AIDS: No Hx Splenectomy or Spleen Trauma: No Other PMH: SD 2010, ICD '11, Thrombectomy October, laminectomy L5-S1 '04, fusion L5-s1 '05, 04/2018 artery bypass R leg - Social History Smoking Status: Former smoker - Physical Exam Exam: General Appearance: Alert, no distress Eyes: Pupils equal and round no pallor or injection ENT, Mouth: Mucous membranes moist Respiratory: There are no retractions, lungs are clear to auscultation Cardiovascular: Regular rate and rhythm Gastrointestinal: Abdomen is soft and nontender, no masses, bowel sounds normal Neurological: 5/5 strength noted throughout the upper and lower extremities, decreased sensation to light touch noted in the right foot Skin: Cool and pale right foot, surgical incisions are clean dry and intact Musculoskeletal: Neck is supple nontender Extremities: No palpable pulses noted in the right extremity Psychiatric: Patient is oriented X 3, there is no agitation Constitutional: Initial Vital Signs Temperature (C) 36.7 C 06/17/18 11:26 Heart Rate 113 H 06/17/18 11:26 Respiratory Rate 20 06/17/18 11:26 Blood Pressure 123/95 H 06/17/18 11:26 O2 Sat (%) 100 06/17/18 11:26 O2 Delivery Mode Room Air Allergies/Adverse Reactions: adhesive tape Allergy (Verified 06/17/18 11:25) rash and blisters Home Medications: Medication Instructions Recorded Famotidine [Pepcid 20 MG (*)] 20 mg PO BID PRN 11/13/17 Aspirin [Aspirin 81mg (*)] 81 mg PO DAILY tab.chew 11/21/17 Albuterol [Proventil Inhaler HFA 1 - 2 puffs IH Q4H PRN 01/04/18 (*)] Atorvastatin Calcium [Lipitor 20 20 mg PO HS 05/14/18 mg (*)] Acetaminophen [Tylenol 325mg (*)] 650 mg PO Q6 PRN 06/08/18 Diazepam [Valium 5 MG (*)] 5 mg PO TID #50 tab 06/14/18 Gabapentin [Neurontin 300 MG (*)] 300 mg PO TID #90 cap 06/14/18 Metoprolol Tartrate [Lopressor 25 25 mg PO BID #30 tab 06/14/18 mg (*)] Warfarin Sodium [Coumadin 5MG (*)] 7.5 mg PO BID #42 tab 06/14/18 Warfarin Sodium [Warfarin Pharmacy 7.5 mg PO DAILY #42 tab 06/14/18 To Dose] oxyCODONE IR [Oxycodone Ir (*)] 5 - 15 mg PO Q4 PRN #50 tab 06/14/18 Medical Decision Making ED Course/Re-evaluation: Patient presents to the ED with an ischemic foot. I consulted with the patient' s surgeon Dr. Nahid Wang who evaluated the patient promptly in the emergency department. The patient will be started on IV heparin and admitted to the intensive care unit. Dr. Wang is coordinating with interventional radiology for consideration of catheter directed thrombolysis. The patient did receive IV narcotic medications for pain control. The patient was noted to have an elevated INR of 6. Dr. Wang does want the patient to continue to be on a heparin drip. Differential Diagnosis: Differential diagnosis considered includes arterial thrombosis, DVT, cellulitis , abscess Critical Care Time: Critical care time exclusive of procedures and exclusive of the PA's time was 35 minutes, performed by myself, Rod Wilder MD. Patient presented to the emergency department with an ischemic leg and required the immediate consultation of his vascular surgeon Dr. Wang. The patient is started on IV heparin. He will be admitted to the intensive care unit in preparation for interventional radiology intervention. - Data Points Laboratory Results: Laboratory Results 06/17/18 12:10 06/17/18 12:10 06/17/18 06/17/18 06/17/18 12:15 12:10 12:10 WBC 9.78 10^3/uL H 10^3/uL (3.80-9.50) RBC 3.38 10^6/uL L 10^6/uL (4.40-6.38) Hgb 10.7 g/dL L g/dL (13.7-17.5) POC Hgb 10.9 gm/dL L gm/dL (13.7-17.5) Hct 31.6 % L % (40.0-51.0) POC Hct 32 % L % (40-51) MCV 93.5 fL fL (81.5-99.8) MCH 31.7 pg pg (27.9-34.1) MCHC 33.9 g/dL g/dL (32.4-36.7) RDW 13.5 % % (11.5-15.2) Plt Count 471 10^3/uL H 10^3/uL (150-400) MPV 9.0 fL fL (8.7-11.7) Neut % (Auto) 86.9 % H % (39.3-74.2) Lymph % (Auto) 6.9 % L % (15.0-45.0) [place] % (Auto) 5.3 % % (4.5-13.0) Eos % (Auto) 0.2 % L % (0.6-7.6) Baso % (Auto) 0.4 % % (0.3-1.7) Nucleat RBC Rel Count 0.0 % % (0.0-0.2) Absolute Neuts (auto) 8.50 10^3/uL H 10^3/uL (1.70-6.50) Absolute Lymphs (auto) 0.67 10^3/uL L 10^3/uL (1.00-3.00) Absolute Monos (auto) 0.52 10^3/uL 10^3/uL (0.30-0.80) Absolute Eos (auto) 0.02 10^3/uL L 10^3/uL (0.03-0.40) Absolute Basos (auto) 0.04 10^3/uL 10^3/uL (0.02-0.10) Absolute Nucleated RBC 0.00 10^3/uL 10^3/uL (0-0.01) Immature Gran % 0.3 % % (0.0-1.1) Immature Gran # 0.03 10^3/uL 10^3/uL (0.00-0.10) PT INR APTT POC Sodium 137 mEq/L mEq/L (135-145) Sodium 136 mEq/L mEq/L (135-145) POC Potassium 3.7 mEq/L mEq/L (3.3-5.0) Potassium 4.2 mEq/L mEq/L (3.5-5.2) POC Chloride 102 mEq/L mEq/L (97-110) Chloride 103 mEq/L mEq/L (97-110) Carbon Dioxide 24 mEq/l mEq/l (22-31) Anion Gap 9 mEq/L mEq/L (6-14) POC BUN 11 mg/dL mg/dL (7-23) BUN 13 mg/dL mg/dL (7-23) Creatinine 0.9 mg/dL mg/dL (0.7-1.3) POC Creatinine 0.9 mg/dL mg/dL (0.7-1.3) Estimated GFR > 60 Glucose 108 mg/dL H mg/dL (70-100) POC Glucose 110 mg/dL H mg/dL (70-100) Calcium 9.0 mg/dL mg/dL (8.5-10.4) 06/17/18 12:10 WBC RBC Hgb POC Hgb Hct POC Hct MCV MCH MCHC RDW Plt Count MPV Neut % (Auto) Lymph % (Auto) [place] % (Auto) Eos % (Auto) Baso % (Auto) Nucleat RBC Rel Count Absolute Neuts (auto) Absolute Lymphs (auto) Absolute Monos (auto) Absolute Eos (auto) Absolute Basos (auto) Absolute Nucleated RBC Immature Gran % Immature Gran # PT 52.8 SEC H SEC (12.0-15.0) INR 6.03 H* (0.83-1.16) APTT 67.7 SEC H SEC (23.0-38.0) POC Sodium Sodium POC Potassium Potassium POC Chloride Chloride Carbon Dioxide Anion Gap POC BUN BUN Creatinine POC Creatinine Estimated GFR Glucose POC Glucose Calcium Medications Given: Discontinued Medications Fentanyl (Sublimaze) 100 mcg IVP EDNOW ONE Stop: 06/17/18 12:51 Last Admin: 06/17/18 12:55 Dose: 100 mcg Heparin Sodium (Porcine) (Heparin 50 Units/Ml (Premix)) 500 mls @ 0 mls/hr IV EDNOW ONE; Per Protocol PRN Reason: Protocol Stop: 06/17/18 12:50 Last Admin: 06/17/18 13:13 Dose: 500 mls Point of Care Test Results: Chemistry 06/17/18 12:15 POC Sodium 137 mEq/L mEq/L (135-145) POC Potassium 3.7 mEq/L mEq/L (3.3-5.0) POC Chloride 102 mEq/L mEq/L (97-110) POC BUN 11 mg/dL mg/dL (7-23) POC Creatinine 0.9 mg/dL mg/dL (0.7-1.3) POC Glucose 110 mg/dL H mg/dL (70-100) ISTAT H&H 06/17/18 12:15 POC Hgb 10.9 gm/dL L gm/dL (13.7-17.5) POC Hct 32 % L % (40-51) Departure - Departure Disposition: [facility] Inpatient Acute Clinical Impression: Arterial embolism of right leg, Right leg pain, Hypercoagulable state Condition: Critical
[2018-06-17 13:10] LABS: INR 6.03 (0.83-1.16); PROTIME(PATIENT) 52.8 SEC (12.0-15.0)
[2018-06-17] MEDS ORDERED: HYDROmorphONE/DILAUDID 2 MG/ML INJ IVP ONE (13:47)
[2018-06-17] MEDS ORDERED: fentaNYL 100 MCG/2 ML INJ IVP PRN (13:49)
[2018-06-17] MEDS ORDERED: DIAZEPAM 5 MG TAB PO PRN (13:51)
[2018-06-17] MEDS ORDERED: ONDANSETRON 4 MG/2 ML VIAL IVP PRN (13:51)
[2018-06-17] MEDS ORDERED: IOPAMIDOL (ISOVUE 370) 100 ML BTL IV ONE (13:55)
[2018-06-17] MEDS ORDERED: NALOXONE HCL 0.4 MG/ML INJ IVP PRN (16:22)
[2018-06-17] MEDS: HYDROmorphONE/DILAUDID 6 MG/30 ML PCA IV PRN (16:46)
[2018-06-17] MEDS: NS 1,000 ML IV SCH (16:54)
[2018-06-17] MEDS ORDERED: HEPARIN 10,000 UNIT/10 ML MDV (1,000 UNIT/ML) IVP PRN (17:10)
[2018-06-17] MEDS ORDERED: HEPARIN/DEXTROSE 500 ML IV SCH (17:15)
[2018-06-17 18:09] LABS: PLATELET COUNT 425 10^3/uL (150-400)
[2018-06-17] MEDS ORDERED: ALBUTEROL 60 PUFFS/8 GM MDI IH PRN (18:15)
[2018-06-17] MEDS ORDERED: ACETAMINOPHEN 325 MG TAB PO PRN (18:15)
[2018-06-17] MEDS ORDERED: FAMOTIDINE 20 MG TAB PO PRN (18:15)
--- NOTE | 2018-06-17 20:28 | SOAPPROG ---
SOAP Progress Note Assessment/Plan: Assessment:patient seen on evening rounds - still with significant foot/distal leg pain. foot/leg significantly warmer and less violaceous. purple 1-3 toes. focal ischemic patch dorsal foot. less discoloration overall. anterior tibial wound probed - thin old blood evacuated - no purulence. foot drop unchanged. will continue heparin therapy and allow coumadin to drift for now. will add precedex to help with pain. foot prognosis remains guarded. care plan reviewed with nursing staff and patient at bedside. Plan: 06/17/18 20:25 Objective: Vital Signs Temp Pulse Resp BP Pulse Ox 36.6 C 84 10 L 143/82 H 95 06/17/18 14:53 06/17/18 18:00 06/17/18 18:00 06/17/18 18:00 06/17/18 18:00 Laboratory Results 06/17/18 17:10 06/16/18 06/17/18 06/18/18 05:59 05:59 05:59 Intake Total 285 Output Total 450 Balance -165 PT 52.8 SEC (12.0-15.0) H 06/17/18 12:10 INR 6.03 (0.83-1.16) H* 06/17/18 12:10 ICD10 Worksheet Patient Problems: Problems Problem Status Onset Arterial embolism of right leg Acute Hypercoagulable state Acute Right leg pain Acute Aneurysm of heart Acute Coronary stent patent Acute Left ventricular thrombus without AK Acute
[2018-06-17] MEDS: DEXMEDETOMIDINE HCL 400 MCG in NS 100 ML IV SCH (20:52)
[2018-06-17 21:08] LABS: PROTIME(PATIENT) 57.2 SEC (12.0-15.0)
--- NOTE | 2018-06-17 21:23 | GHP ---
DATE OF ADMISSION: 06/17/2018 REASON FOR ADMISSION: Leg ischemia. HISTORY OF PRESENT ILLNESS: 48-year-old male with a challenging and progressive medical history significant for prior coronary artery disease with myocardial infarction approximately 10 years ago resultant in cardiomyopathy. He initially presented approximately a year ago with right superficial femoral artery occlusion with significant distal embolic phenomena. He was admitted for workup at that time, including attempted clot lysis. During that admission , he was found to have a large cardiac embolus for which further leg lysis was discontinued. The patient underwent an urgent open heart surgery including ventricular clot thrombectomy and ventricle reduction. Of note, the patient had been on long-term anticoagulants prior to this admission, including Coumadin and more recently Xarelto. At that time, the patient was maintained on Coumadin after his open heart surgery and was found to have a recurrence of his ventricular thrombus within 2 months despite full anticoagulation with Coumadin therapy. It was opted to proceed with ongoing medical management using Eliquis at that time. After having stabilized his cardiac clot, he was readmitted a few weeks ago to undergo a right femoral to tibial artery bypass with reverse saphenous vein graft given his progressive claudication symptoms. His postoperative course was again, unfortunately, complicated by immediate graft thrombosis. This was re-explored the following day at which point his distal anastomosis was revised, having found no other obvious etiology. He was discharged home after graft revision with an excellent Doppler signal at his ankle on full Eliquis anti-coagulation. In followup, the patient was found to have a complete graft thrombosis along with an acute right arm acute thrombophlebitis. The following week, he underwent a subsequent angiography with attempted clot lysis. Clot lysis was complicated by ongoing thrombus re- formation despite full-dose heparinization and TPA. Inability to re-establish patency of his saphenous vein graft persisted despite absence of proximal or distal stenoses. This failure was thought secondary to poor arterial outflow in the setting of hypercoagulability. The patient was seen by Dr. Echeverria from hematology service who recommended returning to Coumadin with a goal INR of 2.5 to 3.5. The patient was discharged home last weekend, and had been slowly improving on a regular basis. The patient was planned to be seen in followup this afternoon. A few hours prior to his appointment, he developed sudden onset right foot pain, coolness, and purple discoloration, bringing him to the emergency room instead. On clinical exam in the emergency room, he was found to have evidence of acute right foot and distal leg ischemia across the dorsal aspect, consistent with acute embolic ischemia. His INR was significantly 6. He is admitted for further workup, management, as well as pain control. At present time, the patient is without new complaints of chest pains or shortness of breath. He has no left leg complaints. His complaints are solely as noted above within his right foot and distal leg of acute sudden onset just prior to admission. PAST MEDICAL HISTORY: Coronary artery disease, cardiomyopathy, left ventricular thrombus, right superficial femoral artery thromboembolus, hypercoagulable state. PAST SURGICAL HISTORY: L5-S1 laminectomy with fusion, AICD placement, cardiac stent placement, open ventricular thrombectomy with ventricular reduction, right superficial femoral artery to anterior tibial artery bypass with reverse saphenous vein graft. HOME MEDICATIONS: Gabapentin, Coumadin, Proventil, Lopressor, oxycodone, Valium , aspirin. ALLERGIES: No known drug allergies. SOCIAL HISTORY: No alcohol, no tobacco. 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 PHYSICAL EXAMINATION: VITAL SIGNS: Temperature 36.7, blood pressure 123/95, pulse 113, respirations 20. GENERAL: The patient is alert, appropriate, uncomfortable, pale secondary to pain. HEENT: Anicteric. NECK: No cervical lymphadenopathy. HEART: Regular. LUNGS: Clear. ABDOMEN: Soft, nontender. EXTREMITIES: Right leg incisions all clean without erythema. Previous right thigh hematoma, essentially flat. Right medial leg seroma, soft and flat. Right anterior tibial prior hematoma, also soft and flat. Notable hyperemia across his distal anterior compartments without erythema. Right foot with acute violaceous ischemic changes across the dorsal aspect of this, coursing under his right 1st through 3rd toes. Sensation intact bilaterally. Diminished foot dorsiflexion (present prior to admission/post lysis last week). 2+ femoral pulse, chronically absent graft and distal pulses. Left leg normal with 2+ pedal pulses. LABORATORY DATA: White count 10, hemoglobin 11, platelets of 471. Electrolytes within reference range. Glucose 108. INR 6. IMPRESSION: Acute onset right foot pain secondary to recurrent dorsal foot outflow thromboembolic phenomena despite supra-therapeutic anticoagulation on Coumadin. The patient will be restarted on heparin therapy without bolus given concern for progressive hypercoagulability on Coumadin therapy. Will proceed with noninvasive CT angiography with runoff for further pedal flow assessment. If evidence of obvious vessel occlusion, consideration for repeat lysis may be entertained. Otherwise, will plan to maintain with unfractionated heparin management. Care plan was discussed with Dr. Echeverria from hematology who is in agreement regarding anticoagulation plan. Pain control will be further heightened. Final disposition pending response to heparin therapy and conservative measures at this time. The patient is at significant risk for potential limb loss. Findings and recommendations were discussed with the patient, who expressed understanding and appreciation of ongoing care efforts. Copy requested to: Liza Montanez MD /[id number]/MODL MTDD
[2018-06-17] MEDS: ATORVASTATIN CALCIUM 20 MG TAB PO SCH (21:39)
[2018-06-17] MEDS: DIAZEPAM 5 MG TAB PO SCH (21:39)
[2018-06-17] MEDS: GABAPENTIN 300 MG CAP PO SCH (21:39)
[2018-06-17] MEDS: METOPROLOL TARTRATE 25 MG TAB PO SCH (21:40)
[2018-06-18] MEDS: NS 1,000 ML IV SCH (02:34)
[2018-06-18 05:33] LABS: PROTIME(PATIENT) 57.7 SEC (12.0-15.0)
[2018-06-18 05:34] LABS: INR 6.77 (0.83-1.16)
[2018-06-18] MEDS: METOPROLOL TARTRATE 25 MG TAB PO SCH ×2 (08:59→21:03)
[2018-06-18] MEDS: DIAZEPAM 5 MG TAB PO SCH ×3 (08:59→21:04)
[2018-06-18] MEDS: GABAPENTIN 300 MG CAP PO SCH ×3 (08:59→21:04)
[2018-06-18] MEDS: ASPIRIN 81 MG CHEWABLE TAB PO SCH (08:59)
--- NOTE | 2018-06-18 09:24 | ASMTCASEMG ---
Living Arrangements What is your living Answers: Alone arrangement? Who do you live with? Type Of Residence What kind of residence do Answers: Apartment you live in? Discharge Plan Comments Coordination Status Comments Notes: Patient is a 48yo single male with a hx of coronary artery disease with [place] and cardiomyopathy. Patient has been admitted for leg ischemia and further workup. No therapies ordered at this time. D/C plan TBD. CM will follow. Date Signed: 06/18/2018 09:24 AM Electronically Signed By:Lisa Clark LCSW
--- NOTE | 2018-06-18 09:41 | PDMN ---
Medical Necessity Medical necessity: Pt meets inpt criteria per MD order and Vascular Disease GRG , Embolism and thrombosis of arteries of the lower extremities, 2 days. 48 y/o w /acute onset of significant R foot pain, likely secondary to recurrent thromboembolic phenomena despite over-therapeutic anticoagulation on Coumadin. Pt recently underwent arterial graft to RLE, hx of CAD and NC about 10 yrs ago, cardiomyopathy, intracardiac thrombus requiring OHS about a year ago, and a severe hypercoagulable state of uncertain etiology. IV heparin, IV Dilaudid and IV Precedex for pain, ICU monitoring, risk for potential limb loss. Anticipate> 2MN for ongoing eval/management of above.
[2018-06-18] MEDS: HYDROmorphONE/DILAUDID 6 MG/30 ML PCA IV PRN (09:54)
--- NOTE | 2018-06-18 09:58 | SOAPPROG ---
SOAP Progress Note Assessment/Plan: Assessment: pain status quo. unable to stand without pain. rest pain improved. afebrile. calf soft. incis clean. distal leg hyperemia improved. foot ischemic changes better overall - persistant dorsal foot patch unchanged. reperfusion edema throughout warm foot better. distal 1-3 toe purple discoloration remaining only. INR 6.7 / PTT >250. recurrent distal leg atheroembolus vs hypercoag along dorsum of foot improved. coag plan reviewed with heme - low heparin level on UFH - will change to LMWH with plans to transition to lovenox rather than coumadin indefinitely. persistent right foot drop since TPA - will have PT/OT assess/treat. cont pain control with precedex/ bead maker/valium. patient seen on evening rounds - still with significant foot/distal leg pain. foot/leg significantly warmer and less violaceous. purple 1-3 toes. focal ischemic patch dorsal foot. less discoloration overall. anterior tibial wound probed - thin old blood evacuated - no purulence. foot drop unchanged. will continue heparin therapy and allow coumadin to drift for now. will add precedex to help with pain. foot prognosis remains guarded. care plan reviewed with nursing staff and patient at bedside. Plan: 06/17/18 20:25 06/18/18 09:52 Objective: Vital Signs Temp Pulse Resp BP Pulse Ox 36.8 C 63 13 118/77 99 06/17/18 20:00 06/18/18 09:05 06/18/18 07:28 06/18/18 07:28 06/18/18 07:28 Laboratory Results 06/17/18 17:10 06/17/18 06/18/18 06/19/18 05:59 05:59 05:59 Intake Total 1999 Output Total 750 Balance 1249 PT 57.7 SEC (12.0-15.0) H 06/18/18 04:25 INR 6.77 (0.83-1.16) H* 06/18/18 04:25 ICD10 Worksheet Patient Problems: Problems Problem Status Onset Arterial embolism of right leg Acute Hypercoagulable state Acute Right leg pain Acute Aneurysm of heart Acute Coronary stent patent Acute Left ventricular thrombus without MA Acute
[2018-06-18] MEDS: ENOXAPARIN 80 MG/0.8 ML SYR SC SCH ×2 (10:14→21:05)
[2018-06-18 15:52] LABS: INR 6.66 (0.83-1.16)
--- NOTE | 2018-06-18 16:20 | ASMTCMCOM ---
CM Note CM Note Notes: PT recommends home care for patient but states they will continue to assess. CM will follow. Date Signed: 06/18/2018 04:19 PM Electronically Signed By:Lisa Clark LCSW
[2018-06-18] MEDS: ATORVASTATIN CALCIUM 20 MG TAB PO SCH (21:04)
[2018-06-18] MEDS: DEXMEDETOMIDINE HCL 400 MCG in NS 100 ML IV SCH (21:12)
[2018-06-19] MEDS: HYDROmorphONE/DILAUDID 6 MG/30 ML PCA IV PRN (05:50)
[2018-06-19 06:38] LABS: INR 5.2 (0.83-1.16); PROTIME(PATIENT) 47.2 SEC (12.0-15.0)
[2018-06-19] MEDS ORDERED: BISACODYL 10 MG SUPP PR PRN (07:32)
[2018-06-19] MEDS ORDERED: POLYETHYLENE GLYCOL 3350 17 GM PKT PO PRN (07:32)
[2018-06-19] MEDS ORDERED: LACTULOSE 20 GM/30 ML UDCUP PO PRN (07:32)
[2018-06-19] MEDS ORDERED: MAGNESIUM HYDROXIDE 30 ML UDCUP PO PRN (07:32)
[2018-06-19] MEDS: ENOXAPARIN 80 MG/0.8 ML SYR SC SCH (07:43)
[2018-06-19] MEDS: DIAZEPAM 5 MG TAB PO SCH (07:44)
[2018-06-19] MEDS: oxyCODONE IR 5 MG TAB PO PRN ×2 (07:44→10:25)
[2018-06-19] MEDS: ASPIRIN 81 MG CHEWABLE TAB PO SCH (07:44)
[2018-06-19] MEDS: GABAPENTIN 300 MG CAP PO SCH (07:44)
[2018-06-19] MEDS: METOPROLOL TARTRATE 25 MG TAB PO SCH (08:20)
[2018-06-19 08:21] VITALS: BP 132/87
--- NOTE | 2018-06-19 08:59 | SOAPPROG ---
SOAP Progress Note Assessment/Plan: Assessment: overall good night. pain slightly better - still not ideal. plantar foot pain with walking improving with continued weight bearing. wants to go home. avss. incis clean. foot duskiness markedly improved. distal 1-3 toes pink today. dorsal skin patch slough stable. recurrent distal leg atheroembolus vs hypercoag along dorsum of foot improved. cont LMWH, stop coumadin at home. persistent right foot drop since TPA - PT/OT assessment appreciate - will obtain AFO prior to leaving if able. add oxycontin for long acting relief. will see back . aware that if foot remains with poor function, may need BKA - he has been aware of this for many months. discussed depression and role for outpatient therapist - names offered - patient open and appreciative. wound care instructions discussed. pain status quo. unable to stand without pain. rest pain improved. afebrile. calf soft. incis clean. distal leg hyperemia improved. foot ischemic changes better overall - persistant dorsal foot patch unchanged. reperfusion edema throughout warm foot better. distal 1-3 toe purple discoloration remaining only. INR 6.7 / PTT >250. recurrent distal leg atheroembolus vs hypercoag along dorsum of foot improved. coag plan reviewed with heme - low heparin level on UFH - will change to LMWH with plans to transition to lovenox rather than coumadin indefinitely. persistent right foot drop since TPA - will have PT/OT assess/treat. cont pain control with precedex/organ assembler/valium. patient seen on evening rounds - still with significant foot/distal leg pain. foot/leg significantly warmer and less violaceous. purple 1-3 toes. focal ischemic patch dorsal foot. less discoloration overall. anterior tibial wound probed - thin old blood evacuated - no purulence. foot drop unchanged. will continue heparin therapy and allow coumadin to drift for now. will add precedex to help with pain. foot prognosis remains guarded. care plan reviewed with nursing staff and patient at bedside. Plan: 06/17/18 20:25 06/18/18 09:52 06/19/18 08:55 Objective: Vital Signs Temp Pulse Resp BP Pulse Ox 36.9 C 75 11 L 132/87 H 100 06/19/18 08:24 06/19/18 08:24 06/19/18 08:24 06/19/18 08:24 06/19/18 08:24 Laboratory Results 06/19/18 05:56 06/18/18 06/19/18 06/20/18 05:59 05:59 05:59 Intake Total 1998 1859.7 400 Output Total 750 1350 Balance 1249 509.7 400 PT 47.2 SEC (12.0-15.0) H 06/19/18 05:56 INR 5.20 (0.83-1.16) H* 06/19/18 05:56 ICD10 Worksheet Patient Problems: Problems Problem Status Onset Arterial embolism of right leg Acute Hypercoagulable state Acute Right leg pain Acute Aneurysm of heart Acute Coronary stent patent Acute Left ventricular thrombus without NC Acute
[2018-06-19] MEDS ORDERED: SENNOSIDES/DOCUSATE SODIUM TAB PO SCH (09:00)
--- NOTE | 2018-06-19 09:45 | GDS ---
REASON FOR ADMISSION: Right leg ischemia. HOSPITAL COURSE: 48-year-old male with a history of ongoing hypercoagulability , as well as a remote history of a right SFA thromboembolus resultant from a large ventricular thrombus. Attempt at distal leg bypass for progressive worsening leg claudication efforts had been unsuccessful secondary to the patient's hypercoagulability, as well as poor distal outflow. He was readmitted with acute onset right foot ischemia, thought secondary to progressive hypercoagulability despite supratherapeutic Coumadin therapy versus terminal vessel atheroembolus from prior lysis therapies. He was admitted for pain control and conversion of his anticoagulation from Coumadin to Lovenox per discussion with Hematology Service. His hospital course was otherwise notable for ongoing pain control needs and physical therapy services. He was discharged to home in slightly improved condition. He still has a persistent right footdrop, for which an AFO brace is being recommended. He is to resume all pre-hospital medications. OxyContin has been added for ongoing ischemic pain needs. Physical therapy has been working with him in the outpatient setting at home. He was given new prescriptions for Lovenox 80 mg twice daily with recommendations to discontinue Coumadin therapy. He will follow up with Dr. Wang on Thursday. He will follow up with Dr. Aguilar as scheduled from cardiology service. The patient is aware of the potential role for below-knee amputation should pain continue to remain unbearable, or should he have a persistent functionless foot. Therapist recommendations were also discussed for depression management in the outpatient setting. All questions were entertained. Copy requested to: Marian Montanez /[id number]/MODL MTDD
--- NOTE | 2018-06-19 11:59 | PDIAF ---
- Diagnosis Diagnosis: leg artery occlusion Code Status: Full Code - Medication Management Discharge Medications: electronically signed and located in the Home Medication List. - Orders Services needed: Physical Therapy Diet Recommendation: no restrictions on diet Diet Texture: Regular Texture Diet Additional Instructions: activity as able. may shower. lotion to right foot/leg. f/u thursday - call for appointment. - Follow Up Care Current Providers and Referrals: ROGER BEAULIEU MD [Primary Care Provider] - As per Instructions Nahid Wang MD [Medical Doctor] - Lamin Aguilar MD [Medical Doctor] -
--- NOTE | 2018-06-19 12:35 | ASMTLACE ---
LACE Length of stay for Answers: 1 day current admission Acuity / Level of Answers: Yes Care: Did the patient have an inpatient admission? Comorbidities - select Answers: Coronary Artery Disease all that apply Other Notes: AICD, # of Emergency department Answers: 1-2 visits in the last 6 months Score: 8 Date Signed: 06/19/2018 09:42 AM Electronically Signed By:Christine Almazan RN
--- NOTE | 2018-06-19 15:15 | ASDISCHSUM ---
Discharge Information Plan Status:Home with Home Health Medically Cleared to Leave:06/18/2018 Discharge Date:06/19/2018 10:47 AM D/C Disposition:Home Health Service [facility] D/C Disposition:Home, Routine, Self-Care Projected Discharge Date:06/19/2018 11:00 AM Transportation at D/C:Family Discharge Delay Reason: Follow-Up Date:06/19/2018 11:00 AM Discharge Slot: Final Diagnosis: Placement Information Referral Type:*Home Health Care Services Referral ID:[id number] Provider Name:[facility] Address 1:[address] [address] Address 2: City:[place] Selection Factors: State:[place] Patient Contact Information Contact Name:ROCÍO Relationship:Raulcirilo Address: Work Phone: City: [facility] Phone: State/[facility] Code: Email: Financial Information Financial Class:HMO and PPO Plans Primary Plan Desc:DAVID PPO POS HMO SIG ADM Primary Plan Number:[id number] Secondary Plan Desc: Secondary Plan Number: Assessment Information LACE LACE Length of stay for Answers: 1 day current admission Acuity / Level of Answers: Yes Care: Did the patient have an inpatient admission? Comorbidities - select Answers: Coronary Artery Disease all that apply Other Notes: AICD, # of Emergency department Answers: 1-2 visits in the last 6 months Score: 8 Date Signed: 06/19/2018 09:42 AM Electronically Signed By:Christine Almazan RN [facility] Initial CM Assessment Living Arrangements What is your living Answers: Alone arrangement? Who do you live with? Type Of Residence What kind of residence do Answers: Apartment you live in? Discharge Plan Comments Coordination Status Comments Notes: Patient is a 48yo single male with a hx of coronary artery disease with [place] and cardiomyopathy. Patient has been admitted for leg ischemia and further workup. No therapies ordered at this time. D/C plan TBD. CM will follow. Date Signed: 06/18/2018 09:24 AM Electronically Signed By:Lisa Clark LCSW [facility] CM Progress Note CM Note CM Note Notes: PT recommends home care for patient but states they will continue to assess. CM will follow. Date Signed: 06/18/2018 04:19 PM Electronically Signed By:Lisa Clark LCSW Case Management Discharge Plan Note Case Management Discharge Discharge Order Complete? Answers: Yes Patient to Obtain Answers: via Family Medications Transportation Arranged Answers: Family/Friends Faxed Final Orders Answers: Yes Notes: [facility] Agency/Facility Transfer Answers: Yes Notes: [facility] health Report Printed & Faxed to Receiving Agency Family Notified Answers: Yes Notes: in room Discharge Comments Notes: Faxed final orders to [facility]. Called to confirm pt is accepted. Care to start tomorrow from [facility]. Pt famly transported home. Date Signed: 06/19/2018 03:14 PM Electronically Signed By:Christine Almazan RN Intervention Information
== END 2018-06-19 10:47 | disposition home health service (06) | DRG 303 ==
LOC: F2N 14:42
PROVIDERS: ADMIT Surgery; ATTEND Surgery
DX: I99.8 Other disorder of circulatory system (principal); D68.59 Other primary thrombophilia; I75.021 Atheroembolism of right lower extremity; Z86.718 Personal history of other venous thrombosis and embolism; Z79.01 Long term (current) use of anticoagulants
CPT/HCPCS: 82435-PO; 82565-PO; 82947-PO; 84132-PO; 84295-PO; 84520-PO; 85014-PO; 85520-90; 96365; 97116-GP; 97163-GP; 97165-GO; J1170; J1644; J1650; J3010; Q9967

== ENCOUNTER 2018-06-26 08:05 | Inpatient (IN) | payer OTHER ==
[2018-06-26] MEDS ORDERED: ONDANSETRON 4 MG/2 ML VIAL IVP PRN (18:29)
[2018-06-26] MEDS ORDERED: NS 1,000 ML IV SCH (18:30)
[2018-06-26] MEDS: oxyCODONE IR 5 MG TAB PO PRN ×3 (18:50→22:35)
--- NOTE | 2018-06-26 19:05 | GHP ---
DATE OF ADMISSION: 06/26/2018 REASON FOR ADMISSION: Right leg ischemia. 48-year-old male with multiple admissions over the past year related to a left ventricular thrombus resultant from a history of myocardial infarction with resultant cardiomyopathy and hypercoagulability. He presented approximately 1 year ago with a right leg thromboembolus resultant in femoral popliteal artery occlusions with emboli to his runoff vessels as well. Initial attempts at lysis were halted during the discovery of this large cardiac thrombus. He underwent an open ventricular thrombectomy with ventricular reduction. Despite ongoing anticoagulation with Xarelto and Coumadin prior to surgery, he was replaced on Coumadin postop, and his cardiac thrombus recurred within 2 months, associated with small cerebral emboli. He had been switched to Eliquis and managed until his cardiac clot was felt stabilized. He underwent an attempted [id number]-[id number] artery bypass with reverse saphenous vein graft. Despite multiple efforts at maintenance of graft patency, his graft was unable to be kept going as a result of poor distal outflow and persistent hypercoagulability , again, despite supratherapeutic anticoagulation on Coumadin. After his clot lysis, the patient developed worsening distal leg showering through his anterior tibial artery, which resulted in a footdrop. During this recovery, the patient re-presented with sudden-onset dorsal foot pain. It was unclear if this was resultant from further distal atheroemboli or new clot formation. Since that time, he was switched to zbi-[id number]-[id number] heparin and has continued to suffer from worsening foot pain and progressive dorsal foot ischemia resulting in a non-salvageable extremity. He is being admitted at this time for a right below-knee amputation. PAST MEDICAL HISTORY: Coronary artery disease, cardiomyopathy, left ventricular thrombus, right superficial artery thromboembolus, hypercoagulable state. PAST SURGICAL HISTORY: L5-S1 laminectomy with fusion, AICD placement, cardiac stent placement, open ventricular thrombectomy with ventricular reduction, right superficial femoral artery to anterior tibial artery bypass with reverse saphenous vein graft. HOME MEDICATIONS: Gabapentin, Lovenox, Proventil, Lopressor, oxycodone, Valium , aspirin, OxyContin. ALLERGIES: No known drug allergies. SOCIAL HISTORY: No alcohol, tobacco. 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 PHYSICAL EXAM: GENERAL: The patient is uncomfortable secondary to right foot and leg pain. EYES: Anicteric. NECK: No cervical lymphadenopathy. HEART: Regular. LUNGS: Clear. ABDOMEN: Soft. EXTREMITIES: Normal left lower extremity. 2+ pedal pulses. Right lower extremity incisions all healing nicely. Ischemic right foot with a dorsal eschar, large surrounding hyperemia, and cool toes with diminished sensation. Calf compartments all soft. IMPRESSION: Right leg ischemia secondary to a cardiac thromboembolus with foot drop, intractable pain, hypercoagulability, and a non-salvageable extremity. The patient is ready to proceed with a right below-knee amputation at this time. Surgical risks and benefits were explained in detail throughout multiple discussions, including but not limited to bleeding, infection, potential role for higher level amputation, as well as future thromboembolic events. All questions were entertained. He is anxious to proceed. Copy requested to: ROGER BEAULIEU MD /[id number]/MODL MTDD
[2018-06-26] MEDS: DIAZEPAM 5 MG TAB PO PRN (21:30)
[2018-06-26] MEDS: GABAPENTIN 300 MG CAP PO SCH (21:30)
[2018-06-26] MEDS: FAMOTIDINE 20 MG TAB PO SCH (23:39)
[2018-06-27] MEDS ORDERED: CALCIUM CARBONATE 500 MG CHEWABLE TAB PO PRN (00:04)
[2018-06-27] MEDS: oxyCODONE IR 5 MG TAB PO PRN ×3 (01:28→08:50)
[2018-06-27] MEDS: MAG HYDROX/AL HYDROX/SIMETH 30 ML UDCUP PO PRN ×2 (01:30→21:47)
[2018-06-27] MEDS: HYDROmorphONE/DILAUDID 1 MG/ML INJ IVP PRN (01:34)
--- NOTE | 2018-06-27 07:45 | PDMN ---
Medical Necessity Medical necessity: Pt meets inpt criteria per MD order and Vascular Disease GRG , [facility] [place] [id number], Knee: Amputation Above or Below Knee, Medicare inpt only,3 days. 48 y/o w/hx CAD, cardiomyopathy, L ventricular thrombus requiring OHS about 1 year ago, R superficial thromboembolus (recent arterial graft to RLE), hypercoagulable state, and mult hospitalizations over past yr r/t R leg ischemia /thromboembolus, admitted now w/R leg ischemia, R foot drop, intractable pain, hypercoagulability, and non-salvageable extremity, R BKA surgery pending.
[2018-06-27] MEDS: GABAPENTIN 300 MG CAP PO SCH ×3 (08:50→21:47)
[2018-06-27] MEDS: FAMOTIDINE 20 MG TAB PO SCH ×2 (09:28→21:47)
--- NOTE | 2018-06-27 09:45 | ASMTCMCOM ---
CM Note CM Note Notes: Chart reviewed for discharge planning purposes. 48 year old male with complicated past medical history. He is admitted for care of right leg ischemia. Possible amputation. CM to follow for needs. Plan: TBD Date Signed: 06/27/2018 09:44 AM Electronically Signed By:aSnna Conti RN
--- NOTE | 2018-06-27 09:53 | PDANEPAE ---
ANE History of Present Illness R [id number] amputation ANE Past Medical History - Cardiovascular History Hx Hypertension: Yes Hx Arrhythmias: Yes Hx Chest Pain: Yes Hx Coronary Artery / Peripheral Vascular Disease: Yes Hx CHF / Valvular Disease: No Hx Palpitations: No Cardiovascular History Comment: htn. blood clotting tendency. Clot removal from LV with Phillip 10/2017. Clot to legs. icd placed 11/14/10. NE in 2009 stent placed at that time - Pulmonary History Hx COPD: No Hx Asthma/Reactive Airway Disease: Yes Hx Recent Upper Respiratory Infection: No Hx Oxygen in Use at Home: No Hx Sleep Apnea: No Sleep Apnea Screening Result - Last Documented: Positive Pulmonary History Comment: Mild Asthma - Neurologic History Hx Cerebrovascular Accident: Yes Hx Seizures: No Hx Dementia: No Neurologic History Comment: TIA in Jul 2017. No residual problems. - Endocrine History Hx Diabetes: No Hypothyroid: No Hyperthyroid: No Obesity: no - Renal History Hx Renal Disorders: No - Liver History Hx Hepatic Disorders: No - Neurological & Psychiatric Hx Hx Neurological and Psychiatric Disorders: No - Cancer History Hx Cancer: No - Congenital Disorder History Hx Congenital Disorders: No - GI History GERD: mild Hx Gastrointestinal Disorders: Yes Gastrointestinal History Comment: GERD occasional well controlled - Other Health History Other Health History: wears glasses - Chronic Pain History Chronic Pain: Yes (right leg) - Surgical History Prior Surgeries: 04/07/18 rle/ pelvic angiogram at [facility]. 11/19/17 removal of LV clot with Phillip. [place] Teeth extraction;. B Eye RK Sx;. BACK SURGERIES x 2; . NE STENT X 1;. ICD placement 2010;. TPA for R Leg Oct, 2017;. Open Heart in Oct, 2017 for ventricular clots; ANE Review of Systems Review of Systems: - Exercise capacity METS (RN): 3 METS (limited due to leg pain) - Pacemaker Pacemaker Admissions Consultant: [facility] Date Pacemaker Last Checked: 05/04/18 ANE Patient History - Allergies Allergies/Adverse Reactions: adhesive tape Allergy (Verified 06/17/18 11:25) rash and blisters - Home Medications Home Medications: Albuterol [Proventil Inhaler HFA (*)] 1 - 2 puffs IH Q4H PRN 01/04/18 [Last Taken 06/16/18] Atorvastatin Calcium [Lipitor 20 mg (*)] 20 mg PO HS 05/14/18 [Last Taken ] Acetaminophen [Tylenol 325mg (*)] 650 mg PO Q6 PRN 06/08/18 [Last Taken 06/17/18 ] - NPO status NPO Since - Liquids (Date): 06/27/18 NPO Since - Liquids (Time): 00:00 NPO Since - Solids (Date): 06/27/18 NPO Since - Solids (Time): 00:00 - Anes Hx Anes Hx: no prior problems (stopped in 11/13, 1 ppd x 23 years) - Smoking Hx Smoking Status: Former smoker Marijuana use: No - Alcohol Use Alcohol Use: Occasionally (2 drinks/week) - Family Anes Hx Family Anes Hx: none Family Hx Anesthesia Complications: none ANE Labs/Vital Signs - Vital Signs Blood Pressure: 130/88 Heart Rate: 92 Respiratory Rate: 16 O2 Sat (%): 97 Height: 180.34 cm Weight: 63.049 kg ANE Physical Exam - Airway Neck exam: FROM Mallampati Score: Class 1 Mouth exam: normal dental/mouth exam (broken L upper front tooth) - Pulmonary Pulmonary: clear to auscultation - Cardiovascular Cardiovascular: regular rate and rhythym - ASA Status ASA Status: III ANE Anesthesia Plan Anesthesia Plan: spinal Regional Anesthesia: adductor canal FNB, popliteal SNB
[2018-06-27] MEDS ORDERED: POLYETHYLENE GLYCOL 3350 17 GM PKT PO PRN (09:56)
[2018-06-27] MEDS ORDERED: ALBUTEROL 60 PUFFS/8 GM MDI IH PRN (09:56)
[2018-06-27] MEDS ORDERED: DIAZEPAM 5 MG TAB PO PRN (09:56)
[2018-06-27] MEDS ORDERED: BUPIVACAINE 0.5% 30 ML SDV ONE (09:59)
[2018-06-27] MEDS ORDERED: MIDAZOLAM 2 MG/2 ML VIAL IVP ONE (10:02)
[2018-06-27] MEDS ORDERED: ROPIVACAINE HCL 150 MG/30 ML INJ ONE ×2 (10:05)
[2018-06-27] MEDS ORDERED: fentaNYL 100 MCG/2 ML INJ ONE (10:05)
[2018-06-27] MEDS ORDERED: PROPOFOL 200 MG/20 ML VIAL ONE ×3 (10:05→11:48)
[2018-06-27] MEDS ORDERED: MIDAZOLAM 2 MG/2 ML VIAL ONE (10:06)
[2018-06-27] MEDS ORDERED: clonIDINE 1 MG/10 ML VIAL EP ONE (10:06)
--- NOTE | 2018-06-27 10:11 | POSTOPPROG ---
Post Op Note Date of Operation: 06/27/18 Surgeon: Nahid Wang Electrical Line Splicer: Mona Day PA-C Anesthesiologist: Clifton Myers Anesthesia: GET(General Endotracheal), Local (Specify) (Femoral nerve block) Pre-op Diagnosis: Right leg ischemia Post-op Diagnosis: same Procedure: Right leg below knee amputation Findings: right foot ischemia, anterior compartment necrosis Inf/Abcess present in the surg proc area at time of surgery?: No EBL: Minimal Complications: no immediate Drains: Jesús Li Specimen(s): Right distal leg and foot
[2018-06-27] MEDS ORDERED: BUPIVACAINE/DEXTROSE 7.5MG/ML 2 ML SPINAL AMP SP ONE (10:36)
[2018-06-27] MEDS ORDERED: ONDANSETRON 4 MG/2 ML VIAL ONE (10:59)
[2018-06-27] MEDS ORDERED: DEXAMETHASONE 4 MG/ML VIAL ONE (10:59)
[2018-06-27] MEDS ORDERED: fentaNYL 100 MCG/2 ML INJ IVP PRN (12:11)
[2018-06-27] MEDS ORDERED: NALOXONE HCL 0.4 MG/ML INJ IVP PRN (12:11)
[2018-06-27] MEDS ORDERED: HYDROmorphONE/DILAUDID 2 MG/ML INJ IVP PRN (12:11)
--- NOTE | 2018-06-27 12:45 | POSTANESTH ---
Post Anesthetic Evaluation Cardiovascular Status: Similar to Pre-Op Cond Respiratory Status: Normal, Stable Level of Consciousness/Mental Status: Can Participate in Eval Pain Control: Adequate, Prn Tx Ordered Nausea/Vomiting Control: Adequate, Prn Tx Ordered Complications Possibly Related to Anesthesia: None Noted
--- NOTE | 2018-06-27 16:40 | GOP ---
DATE OF OPERATION: 06/27/2018 SURGEON: Nahid Wang MD CHEMICAL ENGINEERING TEACHER: Mona Day PA-C ANESTHESIA: MAC with regional. ANESTHESIOLOGIST: Dr. Myers. PREOPERATIVE DIAGNOSIS: Right leg ischemia. POSTOPERATIVE DIAGNOSIS: Right leg ischemia. PROCEDURE PERFORMED: Right below-knee amputation. FINDINGS: See below. 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 Despite maximal conservative measures and attempts at limb salvage, he has developed intractable pain with a footdrop and an unusable extremity. He has opted to undergo a right below-knee amputation at this time. Risks and benefits were explained including bleeding, infection, wound failure, need for higher level amputation. All questions were answered. He desires to proceed. A bricklayer's assistant is standard and necessary and customary for the safe performance of this procedure. DESCRIPTION OF PROCEDURE: Regional anesthesia was placed by followed by monitored anesthesia care. Skin flaps were created approximately 10 cm beneath the tibial plateau anteriorly and distally toward the distal gastrocnemius fascial tapering. The leg was elevated and exsanguinated. Tourniquet was applied. Anterior leg incision was created across the anterior 2 /3 of the calf. Incision was taken posteriorly toward the distal flap. The anterior muscle compartments were divided down toward the tibial bone medially and laterally. The peroneal nerve was identified, retracted and transected high up into the thigh. The anterior skin was taken off the tibia. The periosteum was dissected away from the bone. Using a bone saw, the tibia was transected and beveled. The fibula was then transected approximately 1-2 cm above the tibial cut level. The anterior tibial vessels were suture ligated. The interosseous membrane was divided. The popliteal fossa was dissected out. The popliteal artery and vein were suture ligated. The tibial nerve was retracted distally, transected and allowed to retract high up into the thigh. The soft tissues were taken posteriorly off the tibial bone and the leg removed from the field. The remaining soleus musculature was excised from the posterior calf giving a nice healthy viable gastrocnemius covering. The sural nerve was retracted, transected and allowed to retract into the posterior flap. The leg was irrigated. The tourniquet was deflated. Focal bleeding points were controlled using electrocautery or suture ligatures. The posterior flap was placed over a 15 round drain which was brought through a medial thigh stab incision. The defect was closed in multiple layers with absorbable suture. Horizontal mattress sutures were placed across the skin. Excellent contour of the amputation stump was obtained. The prior anterior tibial artery incision superficial skin separations were reapproximated with multiple interrupted nylon sutures as well. Sterile dressings and compression bandages were applied. The patient was taken to recovery room awake in good condition. Copy requested to: Liza Montanez MD /[id number]/MODL MTDD
--- NOTE | 2018-06-27 17:49 | SOAPPROG ---
SOAP Progress Note Assessment/Plan: Assessment:postop check - doing great. no pain. resting peacefully throughout day. avss. comfortable. dressings dry. drain minimal sang. excellent progress. cont current pain regimen - will taper oxycontin as able. cont gabapentin/oxycodone. restart lovenox tomorrow provided no bleeding concerns. stop ancef tomorrow. PT/OT to start tomorrow. Plan: 06/27/18 17:46 Objective: Vital Signs Temp Pulse Resp BP Pulse Ox 36.6 C 68 16 99/60 L 94 06/27/18 16:15 06/27/18 16:15 06/27/18 16:15 06/27/18 16:15 06/27/18 16:15 06/26/18 06/27/18 06/28/18 05:59 05:59 05:59 Intake Total 785 1144 Output Total 1355 Balance 785 -211 ICD10 Worksheet Patient Problems: Problems Problem Status Onset Aneurysm of heart Acute Arterial embolism of right leg Acute Coronary stent patent Acute Hypercoagulable state Acute Left ventricular thrombus without NE Acute Right leg pain Acute
[2018-06-27] MEDS: DIAZEPAM 5 MG TAB PO PRN (21:46)
[2018-06-27] MEDS: ATORVASTATIN CALCIUM 20 MG TAB PO SCH (21:46)
[2018-06-27] MEDS: METOPROLOL TARTRATE 25 MG TAB PO SCH (21:48)
[2018-06-27] MEDS: SENNOSIDES/DOCUSATE SODIUM TAB PO SCH (21:49)
[2018-06-28] MEDS: oxyCODONE IR 5 MG TAB PO PRN ×3 (00:27→07:02)
[2018-06-28] MEDS: HYDROmorphONE/DILAUDID 1 MG/ML INJ IVP PRN ×3 (00:56→05:32)
[2018-06-28] MEDS: DIAZEPAM 5 MG TAB PO PRN ×2 (03:51→21:16)
--- NOTE | 2018-06-28 08:19 | SOAPPROG ---
SOAP Progress Note Assessment/Plan: Assessment/Plan: Postop day 1. Status post right below-knee amputation for ischemia. Known history of clotting disorder. Recent fem anterior tibial bypass clotted despite multiple attempts at primary and secondary salvage. Patient is currently in pain. His block and 1 shot spinal yesterday gave him is only relief over the last few months. Hemodynamically stable Alert oriented moderate distress due to pain. Lungs clear heart regular incision dressed dry. Did not take down the incision at this time. Does have a drain. Will plan on Duramorph spinal 1 shot and then restart his Lovenox if okay with anesthesia. PT starting tomorrow when his pain is under better control. Continue OxyContin oxycodone as well as gabapentin. All questions addressed 06/28/18 08:17 Objective: Vital Signs Temp Pulse Resp BP Pulse Ox 36.6 C 94 14 130/82 H 92 06/28/18 07:49 06/28/18 07:49 06/28/18 07:49 06/28/18 07:49 06/28/18 07:49 06/27/18 06/28/18 06/29/18 05:59 05:59 05:59 Intake Total 785 6905 100 Output Total 3125 Balance 785 -1026 100 ICD10 Worksheet Patient Problems: Problems Problem Status Onset Aneurysm of heart Acute Arterial embolism of right leg Acute Coronary stent patent Acute Hypercoagulable state Acute Left ventricular thrombus without OR Acute Right leg pain Acute
[2018-06-28] MEDS ORDERED: MIDAZOLAM 2 MG/2 ML VIAL IVP ONE (09:14)
[2018-06-28] MEDS ORDERED: fentaNYL 100 MCG/2 ML INJ IVP ONE (09:14)
[2018-06-28] MEDS ORDERED: ROPIVACAINE HCL 150 MG/30 ML INJ ONE (10:11)
[2018-06-28] MEDS ORDERED: LIPID EMULSION 20% 100 ML IV PRN (10:31)
[2018-06-28] MEDS: SENNOSIDES/DOCUSATE SODIUM TAB PO SCH ×2 (10:36→21:16)
[2018-06-28] MEDS: GABAPENTIN 300 MG CAP PO SCH ×3 (10:36→21:16)
[2018-06-28] MEDS: FAMOTIDINE 20 MG TAB PO SCH ×2 (10:36→21:16)
[2018-06-28] MEDS: ASPIRIN 81 MG CHEWABLE TAB PO SCH (10:36)
[2018-06-28] MEDS: METOPROLOL TARTRATE 25 MG TAB PO SCH ×2 (10:37→21:16)
--- NOTE | 2018-06-28 10:43 | SOAPPROG ---
SOAP Progress Note Assessment/Plan: Assessment: Pt in significant pain s/p right BKA on 06/27/18 Plan: Will plan to place adductor canal catheter and popliteal catheter for continuous infusion of regional block. 06/28/18 10:40 Subjective: Pt in 8/10 pain at rest. POD#1 Right BKA. Objective: Vital Signs Temp Pulse Resp BP Pulse Ox 37.3 C 88 16 117/79 97 06/28/18 09:30 06/28/18 10:37 06/28/18 09:30 06/28/18 10:37 06/28/18 09:30 06/27/18 06/28/18 06/29/18 05:59 05:59 05:59 Intake Total 787 8460 100 Output Total 3128 Balance 785 -1020 100 - Time Spent With Patient Time Spent With Patient: 30 min ICD10 Worksheet Patient Problems: Problems Problem Status Onset Aneurysm of heart Acute Arterial embolism of right leg Acute Coronary stent patent Acute Hypercoagulable state Acute Left ventricular thrombus without [place] Acute Right leg pain Acute
[2018-06-28] MEDS ORDERED: ROPIVACAINE 0.2% 1,100 MG in PUMP SET 1 EA NB SCH (11:30)
[2018-06-28] MEDS: ATORVASTATIN CALCIUM 20 MG TAB PO SCH (21:15)
[2018-06-29] MEDS: oxyCODONE IR 5 MG TAB PO PRN ×5 (04:29→22:30)
[2018-06-29] MEDS: SENNOSIDES/DOCUSATE SODIUM TAB PO SCH ×2 (07:52→20:50)
[2018-06-29] MEDS: GABAPENTIN 300 MG CAP PO SCH ×3 (07:52→20:50)
[2018-06-29] MEDS: FAMOTIDINE 20 MG TAB PO SCH ×2 (07:52→20:50)
[2018-06-29] MEDS: ASPIRIN 81 MG CHEWABLE TAB PO SCH (07:52)
[2018-06-29] MEDS: METOPROLOL TARTRATE 25 MG TAB PO SCH ×2 (07:57→20:51)
--- NOTE | 2018-06-29 07:59 | SOAPPROG ---
SOAP Progress Note Assessment/Plan: Assessment/Plan: Postop day 2. Status post right below-knee amputation for ischemia. Known history of clotting disorder. Recent fem anterior tibial bypass clotted despite multiple attempts at primary and secondary salvage. Patient is currently in much less pain. Appreciate regional anesthesia pain control. Much better today. Lovenox restarted yesterday Hemodynamically stable Alert oriented moderate distress due to pain. Lungs clear heart regular incision dressed dry. Doing better today overall. Reasonable expectation of discharge and postoperative recovery outlined. Will remove dressing tomorrow. Anticipate better pain control over the next several days. Patient voiced no additional current concerns today. Will restart Coumadin tomorrow 06/28/18 08:17 06/29/18 07:56 Objective: Vital Signs Temp Pulse Resp BP Pulse Ox 36.8 C 93 16 113/72 94 06/28/18 19:31 06/29/18 04:21 06/29/18 04:21 06/29/18 04:21 06/29/18 04:21 06/28/18 06/29/18 06/30/18 05:59 05:59 05:59 Intake Total 2099 1500 Output Total 3125 1810 10 Balance -1026 -310 -10 ICD10 Worksheet Patient Problems: Problems Problem Status Onset Aneurysm of heart Acute Arterial embolism of right leg Acute Coronary stent patent Acute Hypercoagulable state Acute Left ventricular thrombus without [place] Acute Right leg pain Acute
--- NOTE | 2018-06-29 07:59 | SOAPPROG ---
SOAP Progress Note Assessment/Plan: Assessment/Plan: Postop day 2. Status post right below-knee amputation for ischemia. Known history of clotting disorder. Recent fem anterior tibial bypass clotted despite multiple attempts at primary and secondary salvage. Patient is currently in much less pain. Appreciate regional anesthesia pain control. Much better today. Lovenox restarted yesterday Hemodynamically stable Alert oriented moderate distress due to pain. Lungs clear heart regular incision dressed dry. Doing better today overall. Reasonable expectation of discharge and postoperative recovery outlined. Will remove dressing tomorrow. Anticipate better pain control over the next several days. Patient voiced no additional current concerns today. Will restart Coumadin tomorrow 06/28/18 08:17 06/29/18 07:56 Objective: Vital Signs Temp Pulse Resp BP Pulse Ox 36.8 C 93 16 122/82 H 94 06/28/18 19:31 06/29/18 07:57 06/29/18 04:21 06/29/18 07:57 06/29/18 04:21 06/28/18 06/29/18 06/30/18 05:59 05:59 05:59 Intake Total 2092 1500 Output Total 3125 1810 10 Balance -1026 -310 -10 ICD10 Worksheet Patient Problems: Problems Problem Status Onset Aneurysm of heart Acute Arterial embolism of right leg Acute Coronary stent patent Acute Hypercoagulable state Acute Left ventricular thrombus without [place] Acute Right leg pain Acute
--- NOTE | 2018-06-29 10:43 | PDPAINCON ---
Pain Management Consultation Patient referred by : Aroldo - Subjective Pain is: under control Side effects include: No drowsy, No itchiness, No nausea, No rash - Objective Technique: continuous peripheral nerve block (ropi 0.2% at 6ml/hr - pop/saph) Catheter site: clean, dry, intact Sensory and motor exam: consistent with block - Assessment/Plan Assessment/Plan: pain well-controlled, continue current mgmt Additional comments: POD 2 s/p BKA with continuous popliteal sciatic and saphenous nerve catheters in place running ropivacaine 0.2% at 6ml/hr each. Patient reports much improved analgesia since these were placed yesterday. Primary team resuming lovenox and will plan to transition to coumadin tomorrow. Will monitor INR and coordinate removal of catheters.
[2018-06-29] MEDS: ENOXAPARIN 80 MG/0.8 ML SYR SC SCH ×2 (12:32→20:51)
[2018-06-29] MEDS: DIAZEPAM 5 MG TAB PO PRN ×2 (16:58→20:51)
[2018-06-29] MEDS: ATORVASTATIN CALCIUM 20 MG TAB PO SCH (20:51)
[2018-06-30] MEDS: oxyCODONE IR 5 MG TAB PO PRN ×6 (02:43→22:08)
[2018-06-30] MEDS: DIAZEPAM 5 MG TAB PO PRN ×2 (02:46→13:51)
[2018-06-30 05:12] LABS: INR 1.24 (0.83-1.16); PROTIME(PATIENT) 15.8 SEC (12.0-15.0)
[2018-06-30] MEDS: GABAPENTIN 300 MG CAP PO SCH ×3 (08:04→21:07)
[2018-06-30] MEDS: SENNOSIDES/DOCUSATE SODIUM TAB PO SCH ×2 (08:04→21:07)
[2018-06-30] MEDS: ASPIRIN 81 MG CHEWABLE TAB PO SCH (08:04)
[2018-06-30] MEDS: METOPROLOL TARTRATE 25 MG TAB PO SCH ×2 (08:04→21:10)
[2018-06-30] MEDS: FAMOTIDINE 20 MG TAB PO SCH ×2 (08:04→21:07)
[2018-06-30] MEDS: ENOXAPARIN 80 MG/0.8 ML SYR SC SCH ×2 (08:05→21:08)
[2018-06-30] MEDS: ACETAMINOPHEN 325 MG TAB PO PRN (11:03)
--- NOTE | 2018-06-30 13:17 | SOAPPROG ---
SOAP Progress Note Assessment/Plan: Assessment/Plan: Postop day 2. Status post right below-knee amputation for ischemia. Known history of clotting disorder. Recent fem anterior tibial bypass clotted despite multiple attempts at primary and secondary salvage. Patient is currently in much less pain after bolus. Appreciate regional anesthesia pain control. Much better today. Lovenox restarted yesterday. Start coumadin today was on 5/7.5 qod at home Hemodynamically stable Alert oriented moderate distress due to pain. Lungs clear heart regular incision dressed dry. Drain removed. Dressing taken down, seropurulent (? bone debris) laterally. Probed wound, cx sent. Iodoform wick placed Doing better today overall. Reasonable expectation of discharge and postoperative recovery outlined. Will change dressing tomorrow. Anticipate better pain control over the next several days. Stop nerve block in am and reassess for potential d/c thurs/fri Patient voiced no additional current concerns today. Empiric abx 06/28/18 08:17 06/29/18 07:56 06/30/18 13:15 Objective: Vital Signs Temp Pulse Resp BP Pulse Ox 36.9 C 84 15 118/81 H 93 06/30/18 07:59 06/30/18 08:04 06/30/18 07:59 06/30/18 08:04 06/30/18 07:59 06/29/18 06/30/18 07/01/18 05:59 05:59 05:59 Intake Total 1500 1000 Output Total 1810 1846 400 Balance -310 -846 -400 PT 15.8 SEC (12.0-15.0) H 06/30/18 04:18 INR 1.24 (0.83-1.16) H 06/30/18 04:18 ICD10 Worksheet Patient Problems: Problems Problem Status Onset Aneurysm of heart Acute Arterial embolism of right leg Acute Coronary stent patent Acute Hypercoagulable state Acute Left ventricular thrombus without [place] Acute Right leg pain Acute
--- NOTE | 2018-06-30 14:02 | ASMTCMCOM ---
CM Note CM Note Notes: Pt s/p R BKA. PT rec home. Pt plans to d/c to brother's home in [place]. Pt came in open with [facility], CM will see if this is still a need, unknown if [facility] services [place]. Date Signed: 06/30/2018 02:02 PM Electronically Signed By:RUBEN Gunn
--- NOTE | 2018-06-30 15:36 | PDPAINCON ---
Pain Management Consultation Patient referred by Dr.: Felipe/Aroldo - Subjective Pain at rest (/10): 4 (Pain much better than earlier today.) Pain with activity (/10): 4 Pain is: under control Comments: Pain much lower after 14 ml bolus over 1 hr. - Objective Technique: continuous peripheral nerve block (AC, sciatic) Site: femoral Continuous infusion: ropivicaine Continuous rate (ml/hr): 8 Catheter site: clean, dry, intact Vital signs: stable - Assessment/Plan Assessment/Plan: other (Will hold infusions in AM and trial controlling pain with oral meds per surgeon's request.)
[2018-06-30] MEDS ORDERED: WARFARIN SODIUM 5 MG TAB PO ONE (16:00)
[2018-06-30] MEDS: ATORVASTATIN CALCIUM 20 MG TAB PO SCH (21:07)
[2018-07-01] MEDS: oxyCODONE IR 5 MG TAB PO PRN ×6 (01:17→19:01)
[2018-07-01] MEDS: DIAZEPAM 5 MG TAB PO PRN ×4 (01:18→21:58)
[2018-07-01 05:23] LABS: INR 1.42 (0.83-1.16); PROTIME(PATIENT) 17.5 SEC (12.0-15.0)
[2018-07-01] MEDS: GABAPENTIN 300 MG CAP PO SCH ×3 (08:44→21:51)
[2018-07-01] MEDS: ASPIRIN 81 MG CHEWABLE TAB PO SCH (08:44)
[2018-07-01] MEDS: METOPROLOL TARTRATE 25 MG TAB PO SCH ×2 (08:45→21:51)
[2018-07-01] MEDS: SENNOSIDES/DOCUSATE SODIUM TAB PO SCH ×2 (08:45→21:50)
[2018-07-01] MEDS: FAMOTIDINE 20 MG TAB PO SCH ×2 (08:45→21:51)
[2018-07-01] MEDS: ENOXAPARIN 80 MG/0.8 ML SYR SC SCH ×2 (08:46→21:52)
--- NOTE | 2018-07-01 09:31 | SOAPPROG ---
<Mona Day - Last Filed: 07/01/18 15:33> SOAP Progress Note Assessment/Plan: Assessment/Plan: POD #4 s/p right BKA. Patient in agreement to trial off ropivacaine cont block this am. Will try to manage pain on oral meds. Dressing and iodoform wick replaced. Cultures pending, no orgs on gram stain. INR 1.42 this am, goal of 2.5 -3.5. Continue lovenox today, additional coumadin dose this evening. Hopeful discharge by the end of this week. Patient plans to stay with his brother upon discharge. Patient seen and evaluated with Dr. Kendrick. 07/01/18 09:35 Regional nerve block catheters removed this afternoon. Patient tolerating pain management with oral analgesics. Will continue to monitor coumadin dosing until target INR achieved. Discussed realistic discharge being Thursday. 07/01/18 15:34 Subjective: s/p right BKA POD #4. Pain tolerable with trial off continuous block. Pain and hypersensitivity worse at knee, moderate relief with loose dressing. Has been working with PT, ambulating well with walker. No new patient concerns. Objective: Vital Signs Temp Pulse Resp BP Pulse Ox 36.9 C 76 14 109/75 95 07/01/18 07:46 07/01/18 07:46 07/01/18 07:46 07/01/18 07:46 07/01/18 07:46 Microbiology 06/30/18 13:40 Gram Stain - Final Leg - Anaerobic Tube/Swab 06/30/18 07/01/18 07/02/18 05:59 05:59 05:59 Intake Total 1000 Output Total 1846 1150 Balance -846 -1150 PT 17.5 SEC (12.0-15.0) H 07/01/18 04:25 INR 1.42 (0.83-1.16) H 07/01/18 04:25 Physical exam: Gen: A&O x3, afebrile, no acute distress HEENT: anicteric Skin: normal CV: regular rate Extremities: Right leg dressing dry, minimal seropurulent drainage able to be expressed from lateral incision, iodoform wick in place, mild tenderness. Small 5mm abrasion overlying right patella, some hypersensitivity anterior knee ICD10 Worksheet Patient Problems: Problems Problem Status Onset Aneurysm of heart Acute Arterial embolism of right leg Acute Coronary stent patent Acute Hypercoagulable state Acute Left ventricular thrombus without ID Acute Right leg pain Acute <Arcenio Kendrick - Last Filed: 07/01/18 16:34> SOAP Progress Note Assessment/Plan: Assessment/Plan: Agree with above Awaiting cx Remove wick in am No need for outpt PT Physiatry consult for prosthesis as outpt 5 mg coumadin 07/01/18 16:33 Objective: Vital Signs Temp Pulse Resp BP Pulse Ox 37.0 C 74 16 117/81 H 93 07/01/18 15:30 07/01/18 15:30 07/01/18 15:30 07/01/18 15:30 07/01/18 15:30 Microbiology 06/30/18 13:40 Gram Stain - Final Leg - Anaerobic Tube/Swab 06/30/18 07/01/18 07/02/18 05:59 05:59 05:59 Intake Total 1000 200 Output Total 1846 1150 Balance -846 -1150 200 PT 17.5 SEC (12.0-15.0) H 07/01/18 04:25 INR 1.42 (0.83-1.16) H 07/01/18 04:25
[2018-07-01] MEDS: ACETAMINOPHEN 325 MG TAB PO PRN ×2 (09:57→15:38)
--- NOTE | 2018-07-01 11:43 | PDPAINCON ---
Pain Management Consultation Patient referred by : Aroldo/Felipe - Subjective Pain is: under control Side effects include: No drowsy - Objective Technique: continuous peripheral nerve block (AC + popliteal) Catheter site: clean, dry, intact, no erythema/edema/exudate Sensory and motor exam: consistent with block Vital signs: stable - Assessment/Plan Assessment/Plan: pain well-controlled, continue current mgmt Additional comments: POD 4 s/p BKA with continuous popliteal sciatic and saphenous nerve catheters in place running ropivacaine 0.2% at 8ml/hr each until 0900 this AM. Trialing off infusions with transition to PO analgesics today. Patient tolerating well so far, states his pain is very well controlled at this time. If this continues, will remove catheters this afternoon before INR increases further with additional anticoagulation, currently INR 1.4.
[2018-07-01] MEDS: HYDROmorphONE/DILAUDID 1 MG/ML INJ IVP PRN ×2 (14:39→22:34)
[2018-07-01] MEDS ORDERED: WARFARIN SODIUM 5 MG TAB PO ONE (16:00)
[2018-07-01] MEDS ORDERED: WARFARIN SODIUM 5 MG TAB ONE (18:59)
[2018-07-01] MEDS: ATORVASTATIN CALCIUM 20 MG TAB PO SCH (21:50)
[2018-07-02] MEDS: oxyCODONE IR 5 MG TAB PO PRN ×5 (01:10→22:19)
[2018-07-02] MEDS: DIAZEPAM 5 MG TAB PO PRN ×3 (04:34→22:31)
[2018-07-02 05:48] LABS: INR 2.01 (0.83-1.16); PROTIME(PATIENT) 22.8 SEC (12.0-15.0)
[2018-07-02] MEDS: ASPIRIN 81 MG CHEWABLE TAB PO SCH (07:34)
[2018-07-02] MEDS: FAMOTIDINE 20 MG TAB PO SCH ×2 (07:35→22:20)
[2018-07-02] MEDS: SENNOSIDES/DOCUSATE SODIUM TAB PO SCH ×2 (07:35→22:20)
[2018-07-02] MEDS: METOPROLOL TARTRATE 25 MG TAB PO SCH ×2 (07:35→22:22)
[2018-07-02] MEDS: GABAPENTIN 300 MG CAP PO SCH ×3 (07:36→22:20)
[2018-07-02] MEDS: ENOXAPARIN 80 MG/0.8 ML SYR SC SCH ×2 (07:36→22:23)
[2018-07-02] MEDS: ACETAMINOPHEN 325 MG TAB PO PRN ×2 (07:38→13:43)
--- NOTE | 2018-07-02 09:20 | SOAPPROG ---
<Mona Day - Last Filed: 07/02/18 09:15> SOAP Progress Note Assessment/Plan: Assessment/Plan: POD #5 s/p right BKA. Regional nerve block catheters removed yesterday. Patient tolerating pain management with oral analgesics. Wick removed, dressing replaced. Continue Ancef today, will stop on d/c if wound continues to improve. Cultures pending, no orgs on gram stain. Will continue to monitor coumadin dosing until target INR achieved (2.5-2.5). INR 2 this am. Discussed realistic discharge being Thursday. Patient plans to stay with his brother upon discharge. No home PT needed. Patient seen and evaluated with Dr. Kendrick. 07/02/18 09:42 Subjective: Moderate pain overnight, relieved with positional change. Tolerating oral analgesics. Pain improved with light dressing wrap. No new concerns. Anticipates discharge tomorrow. Objective: Vital Signs Temp Pulse Resp BP Pulse Ox 37.0 C 85 17 119/77 95 07/02/18 07:33 07/02/18 07:33 07/02/18 07:33 07/02/18 07:33 07/02/18 07:33 Microbiology 06/30/18 13:40 Gram Stain - Final Leg - Anaerobic Tube/Swab 07/01/18 07/02/18 07/03/18 05:59 05:59 05:59 Intake Total 1100 Output Total 1150 1850 Balance -1150 -750 PT 22.8 SEC (12.0-15.0) H 07/02/18 04:22 INR 2.01 (0.83-1.16) H 07/02/18 04:22 Physical exam: Gen: A&O x3, no acute distress, afebrile HEENT: anicteric Skin: normal CV: reg rate Extremities: Right lateral incision with minimal seropurulence and mild erythema, mild tenderness. Remaining incision clean. Neuro: nonfocal ICD10 Worksheet Patient Problems: Problems Problem Status Onset Aneurysm of heart Acute Arterial embolism of right leg Acute Coronary stent patent Acute Hypercoagulable state Acute Left ventricular thrombus without [place] Acute Right leg pain Acute <Arcenio Kendrick - Last Filed: 07/02/18 17:52> SOAP Progress Note Assessment/Plan: Assessment/Plan: Continues to improve. Pain better today even after regional pain control discontinued. Wound evaluated mild erythema in the lateral aspect no signs of purulence no cellulitis would continue Keflex until discharge. Cultures have been negative to date. Continue to monitor them after the patient is discharged. INR 2.0 this morning will continue 5 mg of Coumadin today and on discharge can increase up to 6 mg if needed. Will anticipate discharge in the morning 07/02/18 17:51 Objective: Vital Signs Temp Pulse Resp BP Pulse Ox 37.0 C 85 16 124/74 H 91 L 07/02/18 15:09 07/02/18 15:09 07/02/18 15:09 07/02/18 15:09 07/02/18 15:09 Microbiology 06/30/18 13:40 Gram Stain - Final Leg - Anaerobic Tube/Swab 07/01/18 07/02/18 07/03/18 05:59 05:59 05:59 Intake Total 1100 Output Total 1150 1850 Balance -1150 -750 PT 22.8 SEC (12.0-15.0) H 07/02/18 04:22 INR 2.01 (0.83-1.16) H 07/02/18 04:22
[2018-07-02] MEDS: HYDROmorphONE/DILAUDID 1 MG/ML INJ IVP PRN ×2 (11:00→15:34)
--- NOTE | 2018-07-02 14:11 | ASMTCMCOM ---
CM Note CM Note Notes: Pt will d/c to brother's home in [place], pt declines HHC at d/c. Updated [facility] CM available for changes/needs. Date Signed: 07/02/2018 02:10 PM Electronically Signed By:RUBEN Gunn
[2018-07-02] MEDS ORDERED: WARFARIN SODIUM 5 MG TAB PO ONE (16:00)
[2018-07-02] MEDS: ATORVASTATIN CALCIUM 20 MG TAB PO SCH (22:20)
[2018-07-03] MEDS: oxyCODONE IR 5 MG TAB PO PRN ×4 (01:33→10:05)
[2018-07-03] MEDS: DIAZEPAM 5 MG TAB PO PRN (04:41)
[2018-07-03 04:56] LABS: INR 2.04 (0.83-1.16); PROTIME(PATIENT) 23.1 SEC (12.0-15.0)
[2018-07-03 07:44] VITALS: BP 129/81
[2018-07-03] MEDS: ASPIRIN 81 MG CHEWABLE TAB PO SCH (08:09)
[2018-07-03] MEDS: METOPROLOL TARTRATE 25 MG TAB PO SCH (08:11)
[2018-07-03] MEDS: FAMOTIDINE 20 MG TAB PO SCH (08:12)
[2018-07-03] MEDS: GABAPENTIN 300 MG CAP PO SCH (08:12)
[2018-07-03] MEDS: ENOXAPARIN 80 MG/0.8 ML SYR SC SCH (08:12)
[2018-07-03] MEDS: SENNOSIDES/DOCUSATE SODIUM TAB PO SCH (08:12)
--- NOTE | 2018-07-03 10:59 | ASDISCHSUM ---
Discharge Information Plan Status:Home with No Needs Medically Cleared to Leave: Discharge Date:07/03/2018 10:37 AM CM D/C Disposition: ADT D/C Disposition:Home, Routine, Self-Care Projected Discharge Date:07/04/2018 11:00 AM Transportation at D/C: Discharge Delay Reason: Follow-Up Date:07/04/2018 11:00 AM Discharge Slot: Final Diagnosis: Placement Information Referral Type:*Home Health Care Services Referral ID:[id number] Provider Name: Address 1: Phone Number: Address 2: Fax Number: City: Selection Factors: State: Patient Contact Information Contact Name:ROCÍO Relationship: Address: Work Phone: City: [facility] Phone: [facility] Code: Email: Financial Information Financial Class:HMO and PPO Plans Primary Plan Desc:DAVID PPO POS HMO SIG ADM Primary Plan Number:[id number] Secondary Plan Desc: Secondary Plan Number: Assessment Information LACE LACE Length of stay for Answers: 7-13 days current admission Acuity / Level of Answers: Yes Care: Did the patient have an inpatient admission? Comorbidities - select Answers: Congestive heart failure all that apply Coronary Artery Disease Previous myocardial infarction Score: 13 Date Signed: 07/03/2018 10:58 AM Electronically Signed By:RUBEN Gunn [facility] CM Progress Note CM Note CM Note Notes: Chart reviewed for discharge planning purposes. 48 year old male with complicated past medical history. He is admitted for care of right leg ischemia. Possible amputation. CM to follow for needs. Plan: TBD Date Signed: 06/27/2018 09:44 AM Electronically Signed By:Sanna Conti RN [facility] CM Progress Note CM Note CM Note Notes: Pt s/p R [facility]. PT rec home. Pt plans to d/c to brother's home in [place]. Pt came in open with [facility], CM will see if this is still a need, unknown if [facility] services [place]. Date Signed: 06/30/2018 02:02 PM Electronically Signed By:RUBEN Gunn [facility] CM Progress Note CM Note CM Note Notes: Pt will d/c to brother's home in [place], pt declines [facility] at d/c. Updated Zayda at [facility]. CM available for changes/needs. Date Signed: 07/02/2018 02:10 PM Electronically Signed By:RUBEN Gunn [facility] CM Progress Note CM Note CM Note Notes: Pt medically stable for d/c home with family support, no CM d/c needs identified. Date Signed: 07/03/2018 10:59 AM Electronically Signed By:RUBEN Gunn Intervention Information Intervention Type:*Incorrect Registration Date of Service:06/27/2018 07:28 AM Patient Type:Observation Staff Member:VU Berry, Lakeisha Hours: Discipline: Severity: Comment:
--- NOTE | 2018-07-05 13:37 | PDDCSUM ---
Discharge Summary Discharge Summary: Date of admission 06/26/2018 Date of discharge: 07/03/2018 Principal diagnosis: Critical leg ischemia Secondary diagnosis hypercoagulable state, coronary artery disease, ventricular thrombus, peripheral arterial disease Procedure: Right below-knee amputation History of present illness: The patient had been admitted to the hospital several times over the last year form issues regarding/related to hypercoagulability. Most recently he had undergone right femoral to anterior tibial artery bypass with reverse saphenous vein graft. He subsequently had thrombosis of this vessel and graft despite anticoagulation. The patient presented to the hospital with acute ischemic pain and underwent evaluation and decision for distal extremity amputation for non salvageable limb. Hospital course: The patient underwent urgent amputation on 06/27/2018 he had postoperative pain as expected which was treated with catheter based neuro axial block of the popliteal and femoral vessels. He was restarted on Coumadin and Lovenox for anticoagulation. His pain medication regimen was oxycodone and OxyContin as well as Tylenol. The patient was discharged baseline cardiopulmonary state. He was able to ambulate with the aid of a walker. Cleared for home without PT. Medications on discharge include: Aspirin [Aspirin 81mg (*)] 81 mg PO DAILY tab.chew 11/21/17 [Last Taken ] Albuterol [Proventil Inhaler HFA (*)] 1 - 2 puffs IH Q4H PRN 01/04/18 [Last Taken 06/16/18] Atorvastatin Calcium [Lipitor 20 mg (*)] 20 mg PO HS 05/14/18 [Last Taken ] Acetaminophen [Tylenol 325mg (*)] 650 mg PO Q6 PRN 06/08/18 [Last Taken 06/17/18 ] Gabapentin [Neurontin 300 MG (*)] 300 mg PO TID #90 cap 06/14/18 [Last Taken 09:00] Metoprolol Tartrate [Lopressor 25 mg (*)] 25 mg PO BID #30 tab 06/14/18 [Last Taken 06/26/18 09:00] Diazepam [Valium 5 MG (*)] 5 mg PO TID PRN #50 tab 06/19/18 [Last Taken 09:00] Enoxaparin [Lovenox 80 MG (*)] 80 mg SC BID #60 syr 06/19/18 [Last Taken ] Famotidine [Pepcid 20 MG (*)] 20 mg PO BID #0 06/19/18 [Last Taken 06/26/18 09: 00] Ondansetron Odt [Zofran Odt 4 mg (*)] 4 mg PO Q4 PRN #15 tab 06/19/18 [Last Taken Unknown] Polyethylene Glycol 3350 [Miralax 17 gm (*)] 17 gm PO DAILY PRN pkt 06/19/18 [ Last Taken Unknown] Sennosides/Docusate Sodium [Senokot-S] 1 - 2 tab PO BID tab 06/19/18 [Last Taken Unknown] oxyCODONE CR [Oxycontin] 20 mg PO BID #30 tab 06/19/18 [Last Taken 06/26/18 12: 00] Warfarin Sodium 6 mg PO DAILY #30 tablet 07/02/18 [Last Taken Unknown] oxyCODONE CR [Oxycontin] 20 mg PO BID #20 tab 07/03/18 [Last Taken Unknown] oxyCODONE IR [Oxycodone Ir (*)] 5 - 15 mg PO Q3HRS PRN #40 tab 07/03/18 [Last Taken Unknown] His discharge plan include warfarin at this time but he may be transitioned only to Lovenox twice daily because he has failed oral anticoagulants with both warfarin and novel oral anticoagulants in the past. He has had consultation with Dr. Echeverria from Hematology[facility]Oncology. Between Dr. Echeverria and Dr. Wang the appropriate anticoagulation regimen will be determined Follow-up appointments were made. Patient will follow up with [facility] as well he is to discharge his brother's house. No adverse events were noted on this hospital admission
== END 2018-07-03 10:37 | disposition home or self-care (01) | DRG 240 ==
LOC: F3N 17:13 → OBSVTOIN 18:34
PROVIDERS: ADMIT Surgery; ATTEND Surgery
PROC: 0Y6H0Z3 Detachment at Right Lower Leg, Low, Open Approach (ICD-10-PCS; principal; 2018-06-27 09:45)
PROC: 3E0T3BZ Introduction of Anesthetic Agent into Peripheral Nerves and Plexi, Percutaneous Approach (ICD-10-PCS; 2018-06-28)
DX: T82.868A Thrombosis due to vascular prosthetic devices, implants and grafts, initial encounter (principal); I74.3 Embolism and thrombosis of arteries of the lower extremities; D68.59 Other primary thrombophilia; I25.10 Atherosclerotic heart disease of native coronary artery without angina pectoris; I25.2 Old myocardial infarction; Z95.5 Presence of coronary angioplasty implant and graft; Z79.01 Long term (current) use of anticoagulants; I51.3 Intracardiac thrombosis, not elsewhere classified; Z95.810 Presence of automatic (implantable) cardiac defibrillator; Z86.73 Personal history of transient ischemic attack (TIA), and cerebral infarction without residual deficits; J45.909 Unspecified asthma, uncomplicated
CPT/HCPCS: 97116-GP; 97161-GP; J0690; J0735; J1100; J1170; J1650; J2250; J2405; J2704; J2795; J3010